=== PATIENT | male | born 1970 | race Caucasian/White ===

== ENCOUNTER 2023-12-28 09:37 | Outpatient (OUT) | payer BC, SELFPAY ==
[2023-12-28 10:25] LABS: Basophils Absolute Auto 0.1 10^3/uL (0.0-0.1); Basophils Percent Auto 1.6 % (0.2-2.0); Eosinophils Absolute Auto 0.1 10^3/uL (0.0-0.7); Eosinophils Percent Auto 1.6 % (0.9-7.0); Hemoglobin 15.8 g/dL (14.0-18.0); Immature Granulocytes Abs Auto 0.02 10^3/uL (0.00-0.03); Immature Granulocytes Pct Auto 0.3 % (0.0-0.5); Lymphocytes Absolute Auto 2.3 10^3/uL (1.2-3.8); Lymphocytes Percent Auto 36.3 % (20.5-60.0); Mean Corpuscular HGB Conc 33.6 g/dL (29.9-35.2); Mean Corpuscular Hemoglobin 33.2 pg (25.9-34.0); Mean Corpuscular Volume 98.7 fL (80.0-94.0); Mean Platelet Volume 9.9 fL (9.5-13.5); Monocytes Absolute Auto 0.7 10^3/uL (0.3-0.8); Monocytes Percent Auto 11.6 % (1.7-12.0); Neutrophils Absolute Auto 3.1 10^3/uL (1.4-6.5); Neutrophils Percent Auto 48.6 % (43.0-75.0); Platelet Count 198 10^3/uL (150-450); Red Blood Count 4.76 10^6/uL (4.70-6.10); Red Cell Distribution Width 12.4 % (11.0-15.0); White Blood Count 6.3 10^3/uL (4.0-11.0)
[2023-12-28 11:18] LABS: Estimated Average Glucose 111 mg/dL; Glycohemoglobin A1C 5.5 % (4.5-6.2)
[2023-12-28 12:01] LABS: Alanine Aminotransferase 45 U/L (16-63); Albumin Globulin Ratio 0.9; Albumin Level 3.7 g/dL (3.4-5.0); Alkaline Phosphatase 75 U/L (46-116); Anion Gap 17.1; Aspartate Amino Transferase 25 U/L (15-37); BUN Creatinine Ratio 15.8; Bilirubin Total 0.5 mg/dL (0.2-1.0); Calcium 9.5 mg/dL (8.5-10.1); Carbon Dioxide 25.4 mmol/L (21.0-32.0); Chloride 102 mmol/L (98-107); Chol HDL Ratio 3.7; Cholesterol 252 mg/dL (<=200); Estimated GFR (African America >60 (>=60); Estimated GFR (Non-African Ame >60 (>=60); Free T3 3.19 pg/mL (2.18-3.98); Globulin 4.3 g/dL; Glucose 89 mg/dL (74-106); HDL Cholesterol 69 mg/dL (40-60); Potassium 4.5 mmol/L (3.5-5.1); Sodium 140 mmol/L (136-145); Thyroid Stimulating Hormone 1.905 uIU/mL (0.358-3.740); Triglycerides 233 mg/dL (<=150); VLDL CHOLESTEROL 46.6 mg/dL
[2023-12-28 12:10] LABS: Prostate Specific Antigen Scrn 0.61 ng/mL (<=4.00)
[2023-12-29 08:08] LABS: Testosterone 653 ng/dL (264-916)
[2023-12-29 14:07] LABS: Insulin 6.8 uIU/mL (2.6-24.9)
== END 2023-12-28 09:38 | disposition home or self-care (01) ==
PROVIDERS: PCP Family Medicine; Visit Provider Family Medicine
DX: Z00.00 Encounter for general adult medical examination without abnormal findings (principal); E78.5 Hyperlipidemia, unspecified; R73.9 Hyperglycemia, unspecified; Z12.5 Encounter for screening for malignant neoplasm of prostate; Z12.12 Encounter for screening for malignant neoplasm of rectum
CPT/HCPCS: 36415; 80053; 80061; 83036; 83525; 84403; 84436; 84443; 84481; 85025; G0103; G0328

== ENCOUNTER 2024-01-04 07:06 | Outpatient (OUT) | payer BC, SELFPAY ==
--- NOTE | 2024-01-04 | CT_ITS ---
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 Dose reduction techniques were achieved by using automated exposure control and/or adjustment of mA and/or kV according to patient size and/or use of iterative reconstruction technique. FINDINGS: LUNGS: No new significant pulmonary nodule or mass PLEURA: No mass, effusion, or pneumothorax. VASCULATURE: No abnormality. FROY: No mass or pathologic adenopathy. MEDIASTINUM: No mass or pathologic adenopathy. CARDIAC: No enlargement, pericardial thickening, or significant calcification. CORONARY ARTERIES: Coronary calcifcations are absent. AORTA: No aneurysm or dissection. CHEST WALL: No mass or axillary adenopathy BONES: No bone lesion or fracture. LIMITED ABDOMEN: No suspicious findings. Limited images of the upper abdomen. OTHER: Negative. CT/CT lung screening low-dose IMPRESSION: LUNG SCREENING: Lung-RADS Category 1 Negative. No nodules and definitely benign nodules. Continue annual screening with LDCT in 12 months. Electronically authenticated by: DUNG MORALES Date: 01/06/2024 07:19
--- OUTSIDE RECORDS SUMMARY | 2024-01-04 07:09 | XMS_ITS | CCD ---
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 Name Role Phone JARED ELMORE Attending Unavailable Anne Bhatia Unavailable ISABELLA Mcdowell, DR BARAJAS Attending Unavailable HAY ., DR BARAJAS Admitting Unavailable HOY ., DR BELL Primary Care Unavailable HAY ., DR BARAJAS Consulting Unavailable HOY ., DR BELL Admitting Unavailable HOY ., DR BELL Attending Unavailable HOY ., DR BELL Consulting Unavailable HOY ., DR BELL Primary Care Unavailable HOY ., DR BELL Admitting Unavailable HOY ., DR BELL Attending Unavailable HOY ., DR BELL Primary Care Unavailable SAMSA ., HORACIO Attending Unavailable SAMSA ., HORACIO Admitting Unavailable ZIEBER, DR JAM Coulter Consulting Unavailable HOY ., DR BELL Primary Care Unavailable SAMSA ., HORACIO Consulting Unavailable HOY ., DR BELL Primary Care Unavailable ALGHOTHANI, MOHAMAD Admitting Unavailable ALGHOTHANI, MOHAMAD Attending Unavailable ALGHOTHANI, MOHAMAD Consulting Unavailable ZIEBER, DR JAM Coulter Consulting Unavailable ALGHOTHANI, MOHAMAD Admitting Unavailable HOY ., DR BELL Primary Care Unavailable RAMÍREZ, JARED Attending Unavailable AMARJITHOSOLEDAD, MOHLESTERD Consulting Unavailable HOY ., DR BELL Admitting Unavailable HOY ., DR BELL Attending Unavailable HOY ., DR BELL Consulting Unavailable HOY ., DR BELL Primary Care Unavailable Allergies Allergy Classification Reported Allergen(s) Allergy Type Date of Onset Reaction(s) Facility (1 source) Sulfonamides (Antibiotic); Translations: [SULFA (SULFONAMIDE ANTIBIOTICS)] Propensity to adverse reactions to drug (disorder) 09-21-19 23 [facility] Repository (2 sources) Sulfamethoxazole / Trimethoprim Drug Allergy hair loss [facility] Other (1 source) bee venom Drug allergy (disorder) 01-07-20 14 [facility] Repository (1 source) Sulfonamides (Antibiotic) Drug allergy (disorder) 09-20-19 17 [facility] Repository Medications Current Medications Medication Drug Class(es) Dates Sig (Normalized) Sig (Original) 0.8 ml adalimumab 50 mg/ml auto-injector (1 source) Tumor Necrosis Factor Luis Antonio Humira Pen 40 MG/0.8ML as directed Subcutaneous Active [id number] actuat albuterol 0.09 mg/actuat metered dose inhaler (1 source) beta2-Adrenergic Agonist Start: 09-07-2023 take 2 puff(s) by inhalation four times daily as needed Albuterol Sulfate HFA 108 (90 Base) MCG/ACT 2 puffs Inhalation 4 times a day prn Sep, Active apremilast 30 mg oral tablet (1 source) take 1 tablet by mouth every twelve hours Otezla 30 MG 1 tablet Orally Twice a day Active benzonatate 200 mg oral capsule (2 sources) Non-narcotic Antitussive Start: 09-07-2023 take 1 capsule by mouth every eight hours Benzonatate 200 MG 1 capsule Orally Three times a day Sep, Active Start: 12-07-2022 take 1 capsule by [facility] every eight hours Benzonatate 200 MG 1 capsule Orally Three times a day Dec, Active fluconazole 150 mg oral tablet (1 source) Azole Antifungal Start: 12-07-2022 Diflucan 150 MG 1 tablet Orally once for 2 days Take 1 tablet today, take the second tablet in 3 days Dec, Active 1 ml ixekizumab 80 mg/ml prefilled syringe (1 source) Interleukin-17A Antagonist inject 1 mL by subcutaneous injection every other week Taltz 80 MG/ML 1 mL Subcutaneous EVERY 2 WEEKS Active losartan potassium 100 mg oral tablet (1 source) Angiotensin 2 Receptor Luis Antonio Losartan Potassium 100 MG Oral for 30 Active nystatin 446195 unt/ml oral suspension (2 sources) Polyene Antifungal Start: 09-07-2023 Nystatin 530210 UNIT/ML 5 ml swish and swallow tid for 7 days Sep, Active Start: 12-07-2022 take 5 mL by mouth t hree times daily Nystatin 925596 UNIT/ML 5 ml Orally 3 times a day for 10 days Swish and swallow Dec, Active predniSONE 20 mg oral tablet (1 source) Start: 09-07-2023 take 1 tablet by mouth every twelve hours predniSONE 20 MG 1 tablet Orally bid for 5 day(s) Sep, Active Completed/Discontinued Medications Medication Drug Class(es) Dates Sig (Normalized) Sig (Original) Ketorolac (2 sources) Nonsteroidal Anti-inflammatory Drug, Cyclooxygenase Inhibitor Start: 12-17-2020 Toradol per 15 mg Dec, 30 mg Triamcinolone (2 sources) Corticosteroid Start: 12-17-2020 KENALOG - 10 mg Dec, 40 mg Problems Active Problems Problem Classification Problem Date Documented Da te Episodic/Chronic Congestive heart failure; nonhypertensive (1 source) Unspecified diastolic (congestive) heart failure; Translations: [UNSPECIFIED DIASTOLIC HEART FAILURE] Onset: 08-22-2022 Chronic Essential hypertension (1 source) Essential (primary) hypertension; Translations: [ESSENTIAL PRIMARY HYPERTENSION] Onset: 09-05-2022 Chronic Hypertension with complications and secondary hypertension (1 source) Hypertensive heart disease with heart failure; Translations: [HTN HEART DISEASE W/HEART FAIL] Onset: 08-22-2022 Chronic Inflammation; infection of eye (except that caused by tuberculosis or sexually transmitteddisease) (1 source) Acute toxic conjunctivitis, right eye; Translations: [ACUTE TOXIC CONJUNCTIVITIS RT EYE] Onset: 01-30-2023 Episodic Mycoses (2 sources) Candidal stomatitis Episodic Nutritional deficiencies (1 source) Vitamin D deficiency, unspecified; Translations: [VITAMIN D DEFICIENCY UNSPECIFIED] Onset: 08-22-2022 Chronic Other eye disorders (3 sources) Ocular pain, right eye; Translations: [OCULAR PAIN RIGHT EYE] Onset: 01-30-2023 Episodic Other lower respiratory disease (4 sources) Shortness of breath; Translations: [SHORTNESS OF BREATH] Onset: 01-18-2023 Episodic Other upper respiratory infections (1 source) Acute pharyngitis, unspecified Episodic Substance-related disorders (2 sources) Nicotine dependence, cigarettes, uncomplicated; Translations: [Nicotine dependence, cigarettes, with unspecified nicotine-induced disorders] Onset: 01-20-2023 Chronic Past or Other Problems Problem Classification Problem Date Documented Da te Episodic/Chronic Deficiency and other anemia (1 source) Anemia, unspecified; Translations: [ANEMIA UNSPECIFIED] Onset: 08-22-2022 Episodic Diabetes mellitus without complication (1 source) Other abnormal glucose; Translations: [OTHER ABNORMAL GLUCOSE] Onset: 08-22-2022 Episodic Malaise and fatigue (4 sources) Other fatigue; Translations: [OTHER FATIGUE] Onset: 08-17-2022 Episodic Nonspecific chest pain (10 sources) Other chest pain; Translations: [Chest pain, unspecified] Onset: 09-17-2022 Episodic Other lower respiratory disease (5 sources) Dyspnea, unspecified; Translations: [DYSPNEA UNSPECIFIED] Onset: 08-22-2022 Episodic Other screening for suspected conditions (not mental disorders or infectious disease) (2 sources) Encounter for screening for malignant neoplasm of prostate; Translations: [Encounter for screening for malignant neoplasm of rectum] Onset: 08-22-2022 Episodic Unclassified (1 source) Cough, unspecified type R05.9 Unclassified (1 source) Acute cough R05.1 Viral infection (1 source) COVID-19 Results Test Name Value Interpretation Reference Range Facility COVID + FLU Quick Testingon 09-07-2023 SARS-CoV-2 (COVID-19) RNA MARCI+probe Ql (Unsp spec) Positive [facility] Other COVID + FLU Quick Testing Negative [facility] Other CT LUNG CANCER SCREENINGon 01-18-2023 CT LUNG CANCER SCREENING EXAMINATION: CT LUNG CANCER SCREENING HISTORY: Nicotine dependence COMPARISON: No relevant comparison available. TECHNIQUE: Axial, Coronal, and Sagittal images were created without the administration of IV contrast material. Dose reduction techniques were achieved by using automated exposure control and/or adjustment of mA and/or kV according to patient size and/or use of iterative reconstruction technique. FINDINGS: LUNGS: A few tiny granulomas. No suspicious nodules, infiltrates, or significant chronic interstitial changes. PLEURA: No mass, effusion, or pneumothorax. VASCULATURE: No abnormality. FROY: No mass or pathologic adenopathy. MEDIASTINUM: No mass or pathologic adenopathy. CARDIAC: No enlargement, pericardial thickening, or significant calcification. AORTA: No aneurysm or dissection. CHEST WALL: No mass or axillary adenopathy BONES: No bone lesion or fracture. LIMITED ABDOMEN: No suspicious findings. Limited images of the upper abdomen. OTHER: Negative. IMPRESSION: 1. Lung-RADS Category 1 Negative. No nodules and definitely benign nodules. Continue annual screening with LDCT in 12 months. Electronically authenticated by: JAM ENGEL Date: 2023-01-18 09:12 Normal [facility] HEMOGLOBINon 01-18-2023 Hemoglobin (Bld) [Mass/Vol] 15.2 g/dL Normal 14.0-18.0 [facility] Comment on above: Performed By: #### H GB ####[facility] [address] [place], [place] [address]Om. Diane Webber QUICK STREPon 12-07-2022 S. pyogenes Ag Ql (Unsp spec) Negative [facility] Other nm STRESS/REST MULTIon 10-02 NM STRESS/REST MULTI Patient: RHETT VENEGAS Exam Date: 10/02/2022 : 1970 Gender:M Ordering : JARED ELMORE Admission #: [id number] Family : Order #: [id number] CLICK HERE TO VIEW EXAM RADIOLOGY REPORT PROCEDURE: RADIONUCLIDE IMAGING STRESS/REST MULTI COMPARISON: None. INDICATIONS: Chest pain TECHNIQUE: Exam Description: Stress/Rest two day protocol gated SPECT Rest Imagin.2 mCi Tc-99m Cardiolite IV on 10/02/2022 Stress Imaging 25.8 mCi Tc-99m Cardiolite IV on 10/03/2022 Exercise Protocol: 0.4 mg Lexiscan given IV Heart Rate (bpm): Rest: 100 Max: 107 PMHR: 63 Blood Pressure: Rest: 168/120 Max: 176/110 Symptoms: Rest and peak stress ECG findings were normal and the exercise portion of the study was normal per attending physician Dr. Tomas . For more details please see separate cardiac stress test report. FINDINGS: QUALITY OF STUDY: Excellent. PERFUSION DEFECT: LOCATION: Basal inferior. Mid-inferior. Apical inferior. [place]. SIZE: Medium (3-4 segments). SEVERITY: Moderate. TYPE: Persistent. WALL MOTION: Normal. LV SIZE: Enlarged; EDV 154 mL. TID / TCD: 1.0 LVEF: Normal. Calculated EF 56%. SUMMARY: Myocardial perfusion imaging study has ABNORMAL findings. CONCLUSION: 1. No acute or reversible ischemia. 2. Inferior wall fixed perfusion defect versus diaphragm attenuation artifact. 3. Mild left ventriculomegaly, 154 mL. 4. Ejection fraction is lower limits of normal, 56%. 5. Normal wall motion. Dictated by: Jam Engel M.D. on 10/03/2022 at 12:01 Approved by: Jam Engel M.D. on 10/03/2022 at 12:05 Normal [facility] Office Visiton 09-21-2022 Follow-up visit [id number] Rhett Venegas 1970 M Date Provider Department Center 09/21/2022 3848-JARED ELMORE [facility] Family History Problem Relation Age of Onset Coronary artery disease Mother Other Mother Family Status - Relation Status Age at Mother Level of Service:83437 DE OFFICE/OUTPATIENT NEW MODERATE MDM 45-59 MINUTES Reason for Visit and Comments: abnormal stress test [Other] Normal [facility] ECHOCARDIO M/2D COMPLETEon 1 ECHOCARDIO M/2D COMPLETE Patient: MIRIAMALISSA RHETT EricaJeremias Exam Date: 08/30/2022 : 1970 Gender:M Ordering : DR ARABELLA HILL . Admission #: [id number] Family : Order #: [id number] CLICK HERE TO VIEW EXAM ECHOCARDIOGRAM REPORT PROCEDURE: CARDIO PULMONARY ECHOCARDIO M/2D COMP INDICATIONS: Dyspnea, hypertension, smoker COMPARISON: None. DESCRIPTION: COMPLETE ECHOCARDIOGRAM Real-time transthoracic echocardiography with 2D, M-mode, spectral and color flow Doppler performed. QUALITY: Technical quality was adequate. 72 270# BP 186/98 LEFT VENTRICLE: Normal chamber size. Borderline left ventricular hypertrophy. LV EF: Normal left ventricular ejection fraction, (>55%). DIASTOLIC: Normal diastolic function. ATRIAL SEPTUM: Visually appears intact. LEFT ATRIUM: Normal chamber size. RIGHT ATRIUM: Normal chamber size. RIGHT VENTRICLE: Normal chamber size. Systolic function appears reduced. TRICUSPID VALVE: Normal mobility and thickness. No stenosis with no regurgitation. Unable to assess right-sided pressures due to lack of measurable tricuspid regurgitation. MITRAL VALVE: Normal mobility and thickness. No evidence of mitral valve stenosis. There is no mitral annular calcification. Trivial mitral regurgitation. AORTIC VALVE: Normal trileaflet appearance. No visible sclerosis. Normal leaflet mobility. No evidence of aortic valve stenosis. No aortic regurgitation. AORTIC ROOT: Normal diameter and appearance. PULMONIC VALVE: Not well visualized. No stenosis. No regurgitation. PERICARDIUM: Anterior free space; trivial effusion versus fat pad. IVC: Collapses with inspirations. IVC is mildly dilated (2.2 cm) CONCLUSION: Global left ventricular systolic function is normal; visually estimated ejection fraction is 55 to 60%. Borderline left ventricular hypertrophy. Right ventricle is normal in size. Right ventricular systolic function appears reduced. No significant valvular abnormalities. Anterior free space; trivial effusion versus fat pad. Adult Echocardiography Procedure Report Left Ventricle LVEDD (3.7 - 5.6 cm): 5.03 cm LVESD (2.2 - 4.0 cm): 3.15 cm LVIVS thickness (0.6 - 1.2 cm): 1.04 cm LVPW thickness (0.5 - 1.0 cm): 1.11 cm e': 0.08 m/s E - e': 11.64 LVOT Max Gradient: 4.02 mm[Hg], 3.60 mm[Hg], 4.02 mm[Hg], 3.60 mm[Hg] Peak Velocity (LVOT): 1.00 m/s, 0.95 m/s, 1.00 m/s, 0.95 m/s Mean Velocity (LVOT): 0.71 m/s, 0.67 m/s, 0.71 m/s, 0.67 m/s LVOT Diameter 1.86 cm Left Ventricular Ejection Fraction: 66.96 %, 66.96 % Left Atrium LA Volume Index (2D A2C): 49.96 ml, 49.96 ml Left Atrium Systolic Dimension: 3.71 cm Mitral Valve MV E to A Ratio: 1.19 Mitral Valve A-Wave Peak Velocity: 0.75 m/s Mitral Valve E-Wave Peak Velocity: 0.90 m/s Right Ventricle Aorta AO Root Diam: 3.11 cm Aortic Valve AoV Area (Peak Hollis): 2.24 cm2, 2.30 cm2 AoV Area (VTI): 2.31 cm2, 2.29 cm2 Peak Velocity(Antegrade Flow): 1.19 m/s Peak Gradient(Antegrade Flow): 5.65 mm[Hg] Mean Velocity(Antegrade Flow): 0.73 m/s Mean Gradient(Antegrade Flow): 2.55 mm[Hg] Velocity Time Integral: 20.75 cm Tricuspid Valve Peak Velocity: 0.33 m/s Pulmonic Valve Peak Velocity: 0.71 m/s, 0.67 m/s Peak Gradient: 2.02 mm[Hg], 1.82 mm[Hg] Right Atrium Right Atrium Systolic Pressure: 32.51 ml, 32.51 ml Dictated by: Cindy Tomas M.D. on 09/04/2022 at 10:29 Approved by: Cindy Tomas M.D. on 09/04/2022 at 10:31 Normal [facility] INSULINon 08-18-2022 Insulin 10.2 uIU/mL Normal 2.6-24.9 [facility] Comment on above: Performed By: #### I NSULIN ####[facility] [address] [place] [address]Dr. Diane Webber BNPon 08-17-2022 Natriuretic peptide B (Bld) [Mass/Vol] 57.0 pg/mL Normal <=900.0 [facility] Comment on above: Performed By: #### B PICKING TECH, T7, TSH, CMP, LIPID #### [facility] [address] [address] [address] Diane Webber CBC AUTO DIFFon 08-17-2022 BASO # 0.1 103/ul Normal 0.0-0.1 [facility] Comment on above: Performed By: #### C BC #### [facility] [address] [address] [address] Diane Webber Basophils/100 WBC (Bld) 1.0 % Normal 0.2-2.0 [facility] Comment on above: Performed By: #### C BC #### [facility] [address] [address] [address] Diane Webber EO # 0.1 103/ul Normal 0.0-0.7 [facility] Comment on above: Performed By: #### C BC #### [facility] [address] [address] [address] Diane Webber Eosinophils/100 WBC (Bld) 1.7 % Normal 0.9-7.0 [facility] Comment on above: Performed By: #### C BC #### [facility] [address] [place] [address] Dr. Diane Webber Erythrocyte distribution width (RBC) [Ratio] 12.4 % Normal 11.0-15.0 [facility] Comment on above: Performed By: #### C BC #### [facility] [address] [place] [address] Dr. Diane Webber Hematocrit (Bld) [Volume fraction] 45.3 % Normal 42.0-54.0 [facility] Comment on above: Performed By: #### C BC #### [facility] [address] [place] [address] Dr. Diane Webber Hemoglobin (Bld) [Mass/Vol] 15.5 g/dL Normal 14.0-18.0 [facility] Comment on above: Performed By: #### C BC #### [facility] [address] [place] [address] Dr. Diane Webber IG # 0.03 10e3/ul Normal 0.00-0.03 [facility] Comment on above: Performed By: #### C BC #### [facility] [address] [place] [address] Dr. Diane Webber IG % 0.4 % Normal 0.0-0.5 [facility] Comment on above: Performed By: #### C BC #### [facility] [address] [place] [address] Dr. Diane Webber LYMPH # 2.5 103/ul Normal 1.2-3.8 [facility] Comment on above: Performed By: #### C BC #### [facility] [address] [place] [address] Dr. Diane Webber Lymphocytes/100 WBC (Bld) 36.0 % Normal 20.5-60.0 [facility] Comment on above: Performed By: #### C BC #### [facility] [address] [place] [address] Dr. Diane Webber MANUAL DIFF REQ NO Normal [facility] Comment on above: Performed By: #### C BC #### [facility] [address] [place] [address] Dr. Diane Webber MCH (RBC) [Entitic mass] 33.3 pg Normal 25.9-34.0 [facility] Comment on above: Performed By: #### C BC #### [facility] [address] [place] [address] Dr. Diane Webber MCHC (RBC) [Mass/Vol] 34.2 g/dL Normal 29.9-35.2 [facility] Comment on above: Performed By: #### C BC #### [facility] [address] [place] [address] Dr. Diane Webber MCV (RBC) [Entitic vol] 97.2 fL Critically high 80.0-94.0 [facility] Comment on above: Performed By: #### C BC #### [facility] [address] [place] [address] Dr. Diane Webber MONO # 0.8 103/ul Normal 0.3-0.8 [facility] Comment on above: Performed By: #### C BC #### [facility] [address] [place] [address] Dr. Diane Webber Monocytes/100 WBC (Bld) 10.9 % Normal 1.7-12.0 [facility] Comment on above: Performed By: #### C BC #### [facility] [address] [place] [address] Dr. Diane Webber NEUT # 3.5 103/ul Normal 1.4-6.5 [facility] Comment on above: Performed By: #### C BC #### [facility] [address] [place] [address] Dr. Diane Webber Neutrophils/100 WBC (Bld) 50.0 % Normal 43.0-75.0 [facility] Comment on above: Performed By: #### C BC #### [facility] [address] [place] [address] Dr. Diane Webber Platelet mean volume (Bld) [Entitic vol] 9.5 fL Normal 9.5-13.5 [facility] Comment on above: Performed By: #### C BC #### [facility] [address] [place], [place] [id number] Dr. Diane Webber PLT 220 103/ul Normal 150-450 [facility] Comment on above: Performed By: #### C BC #### [facility] [address] [address] [address] Diane Webber RBC 4.66 106/ul Critically low 4.70-6.10 [facility] Comment on above: Performed By: #### C BC #### [facility] [address] [address] [address] Diane Webber WBC 7.1 103/ul Normal 4.0-11.0 [facility] Comment on above: Performed By: #### C BC #### [facility] [address] [address] [address] Diane Webber FREE THYROXINE INDEX T7on FTI 2.10 Normal 1.30-4.50 [facility] Comment on above: Performed By: #### B PICKING TECH, T7, TSH, CMP, LIPID #### [facility] [address] [place] [address] Dr. Diane Webber T3U 35.0 % Normal 33.0-40.0 [facility] Comment on above: Performed By: #### B PICKING TECH, T7, TSH, CMP, LIPID #### [facility] [address] [place] [address] Dr. Diane Webber T4 [Mass/Vol] 6.00 ug/dL Normal 4.50-12.10 [facility] Comment on above: Performed By: #### B PICKING TECH, T7, TSH, CMP, LIPID #### [facility] [address] [place] [address] Dr. Diane Webber GLYCOHEMOGLOBIN A1Con 2021 ADA RECOMMENDATION SEE BELOW Normal [facility] Comment on above: Result Comment: ADA RECOMMENDED LIMIT 4.0 - 6.0 ADA THERAPEUTIC TARGET < 7.0 ACTION SUGGESTED > 7.0 Performed By: #### A 1C ####[facility] [address] [place] [address]Dr. Diane Webber Glucose [Mass/Vol] 114 mg/dL Normal [facility] Comment on above: Performed By: #### A 1C ####[facility] [address] [place], [place] [address]VxJeremias Webber HbA1c (Bld) [Mass fraction] 5.6 % Normal 4.5-6.2 [facility] Comment on above: Performed By: #### A 1C ####[facility] [address] [place], [place] [address]ZhJeremias Webber IRONon 08-17-2022 Iron [Mass/Vol] 151.0 ug/dL Normal 65.0-175.0 [facility] Comment on above: Performed By: #### P SASC, IRON, VITAD ####[facility] [address] [place], [place] [address]ZzJeremias Webber LIPID PROFILEon 08-17-2022 CHOL-HDL RATIO NORM SEE BELOW Normal [facility] Comment on above: Result Comment: 3.3 - 4.4 LOW RISK 4.4 - 7.1 AVERAGE RISK 7.1 - 11.0 MODERATE RISK >11.0 HIGH RISK Performed By: #### B PICKING TECH, T7, TSH, CMP, LIPID #### [facility] [address] [address] [address] Diane Webber Cholesterol [Mass/Vol] 221 mg/dL Critically high <=200 [facility] Comment on above: Performed By: #### B PICKING TECH, T7, TSH, CMP, LIPID #### [facility] [address] [id number] [address] Diane Webber Cholesterol in HDL [Mass/Vol] 68 mg/dL Critically high 40-60 [facility] Comment on above: Performed By: #### B PICKING TECH, T7, TSH, CMP, LIPID #### [facility] [address] [place], [place] [address] Dr. Diane Webber Cholesterol in LDL [Mass/Vol] 118.6 mg/dL Normal [facility] Comment on above: Performed By: #### B PICKING TECH, T7, TSH, CMP, LIPID #### [facility] [address] [place], [place] [address] Dr. Diane Webber Cholesterol.total/Ch olesterol in HDL [Mass ratio] 3.3 {ratio} Normal [facility] Comment on above: Performed By: #### B PICKING TECH, T7, TSH, CMP, LIPID #### [facility] [address] [place] [address] Dr. Diane Webber HDL NORMAL > or = 60 mg/dl - LOW CARDIOVASCULAR RISK <40 mg/dl - HIGH CARDIOVASCULAR RISK Normal [facility] Comment on above: Performed By: #### B PICKING TECH, T7, TSH, CMP, LIPID #### [facility] [address] [address] [address] Diane Webber LDL CALC NORMAL SEE BELOW Normal [facility] Comment on above: Result Comment: <100 mg/dl OPTIMAL 100 - 129 mg/dl NEAR OR ABOVE OPTIMAL 130 - 159 mg/dl BORDERLINE HIGH 160 - 189 mg/dl HIGH >190 mg/dl VERY HIGH Performed By: #### B PICKING TECH, T7, TSH, CMP, LIPID #### [facility] [address] [place] [address] Dr. Diane Webber Triglyceride [Mass/Vol] 172 mg/dL Critically high <=150 [facility] Comment on above: Performed By: #### B PICKING TECH, T7, TSH, CMP, LIPID #### [facility] [address] [place] [address] Dr. Diane Webber VLDL CALC 34.4 mg/dL Normal [facility] Comment on above: Performed By: #### B PICKING TECH, T7, TSH, CMP, LIPID #### [facility] [address] [place] [address] Dr. Diane Webber PROF 14(COMP METB)on 022 Albumin [Mass/Vol] 3.7 g/dL Normal 3.4-5.0 [facility] Comment on above: Performed By: #### B PICKING TECH, T7, TSH, CMP, LIPID #### [facility] [address] [place] [address] Dr. Dinae Webber Albumin/Globulin [Mass ratio] 0.9 {ratio} Normal [facility] Comment on above: Performed By: #### B PICKING TECH, T7, TSH, CMP, LIPID #### [facility] [address] [place] [address] Dr. Diane Webber ALP [Catalytic activity/Vol] 56 U/L Normal 46-116 [facility] Comment on above: Performed By: #### B PICKING TECH, T7, TSH, CMP, LIPID #### [facility] [address] [place] [address] Dr. Diane Webber ALT [Catalytic activity/Vol] 53 U/L Normal 16-63 [facility] Comment on above: Performed By: #### B PICKING TECH, T7, TSH, CMP, LIPID #### [facility] [address] [place] [address] Dr. Diane Webber Anion gap [Moles/Vol] 13.4 mmol/L Normal [facility] Comment on above: Performed By: #### B PICKING TECH, T7, TSH, CMP, LIPID #### [facility] [address] [place] [address] Dr. Diane Webber AST [Catalytic activity/Vol] 26 U/L Normal 15-37 [facility] Comment on above: Performed By: #### B PICKING TECH, T7, TSH, CMP, LIPID #### [facility] [address] [place] [address] Dr. Diane Webber Bilirubin [Mass/Vol] 0.5 mg/dL Normal 0.2-1.0 [facility] Comment on above: Performed By: #### B PICKING TECH, T7, TSH, CMP, LIPID #### [facility] [address] [place] [address] Dr. Diane Webber Calcium [Mass/Vol] 9.1 mg/dL Normal 8.5-10.1 [facility] Comment on above: Performed By: #### B PICKING TECH, T7, TSH, CMP, LIPID #### [facility] [address] [place] [address] Dr. Diane Webber Chloride [Moles/Vol] 102 mmol/L Normal 98-107 [facility] Comment on above: Performed By: #### B PICKING TECH, T7, TSH, CMP, LIPID #### [facility] [address] [place] [address] Dr. Diane Webber CO2 [Moles/Vol] 26.9 mmol/L Normal 21.0-32.0 [facility] Comment on above: Performed By: #### B PICKING TECH, T7, TSH, CMP, LIPID #### [facility] [address] [place] [address] Dr. Diane Webber Creatinine [Mass/Vol] 0.88 mg/dL Normal 0.70-1.30 [facility] Comment on above: Performed By: #### B PICKING TECH, T7, TSH, CMP, LIPID #### [facility] [address] [place] [address] Dr. Diane Webber EGFR-AF [place] >60 Normal >=60 [facility] Comment on above: Performed By: #### B PICKING TECH, T7, TSH, CMP, LIPID #### [facility] [address] [place] [address] Dr. Diane Webber EGFR-NON AF [place] >60 Normal >=60 [facility] Comment on above: Performed By: #### B PICKING TECH, T7, TSH, CMP, LIPID #### [facility] [address] [place] [address] Dr. Diane Webber Globulin (S) [Mass/Vol] 4.2 g/dL Normal [facility] Comment on above: Performed By: #### B PICKING TECH, T7, TSH, CMP, LIPID #### [facility] [address] [place] [address] Dr. Diane Webber Glucose [Mass/Vol] 103 mg/dL Normal 74-106 [facility] Comment on above: Performed By: #### B PICKING TECH, T7, TSH, CMP, LIPID #### [facility] [address] [place] [address] Dr. Diane Webber Potassium [Moles/Vol] 4.3 mmol/L Normal 3.5-5.1 [facility] Comment on above: Performed By: #### B PICKING TECH, T7, TSH, CMP, LIPID #### [facility] [address] [place] [address] Dr. Diane Webber Protein [Mass/Vol] 7.9 g/dL Normal 6.4-8.2 [facility] Comment on above: Performed By: #### B PICKING TECH, T7, TSH, CMP, LIPID #### [facility] [address] [address] [address] Diane Webber Sodium [Moles/Vol] 138 mmol/L Normal 136-145 [facility] Comment on above: Performed By: #### B PICKING TECH, T7, TSH, CMP, LIPID #### [facility] [address] [address] [address] Diane Webber Urea nitrogen [Mass/Vol] 8.0 mg/dL Normal 7.0-18.0 [facility] Comment on above: Performed By: #### B PICKING TECH, T7, TSH, CMP, LIPID #### [facility] [address] [address] [address] Diane Webber Urea nitrogen/Creatinine [Mass ratio] 9.1 mg/mg Normal [facility] Comment on above: Performed By: #### B PICKING TECH, T7, TSH, CMP, LIPID #### [facility] [address] [address] [address] Diane Webber TSHon 08-17-2022 TSH 1.506 uIU/mL Normal 0.358-3.740 [facility] Comment on above: Performed By: #### B PICKING TECH, T7, TSH, CMP, LIPID #### [facility] [address] [address] [address] Diane Webber VITAMIN D 25 OHon 08-17-2022 VIT D 25-OH 23.0 ng/mL Normal [facility] Comment on above: Performed By: #### P SASC, IRON, VITAD ####[facility] [id number] [id number]. Diane Webber VIT D RANGES SEE BELOW Normal [facility] Comment on above: Result Comment: <20 ng/mL Vit D deficient 20 - <30 ng/mL Vit D insufficient 30 - 100 ng/mL Vit D sufficient >100 ng/mL Potential Toxicity Performed By: #### P SASC, IRON, VITAD ####[facility] [id number] [id number]. Diane Webber Vital Signs Date Time Vital Sign Value Performing Clinician Facility 09-07-2023 14:15-0500 Body height 180.34 cm Anne Fuchs [facility] Other 09-07-2023 14:15-0500 Body mass index (BMI) [Ratio] 37.74 kg/m2 Anne Jannette Other [facility] Other 09-07-2023 14:15-0500 Body temperature 99.1 [degF] Anne Jannette Other [facility] Other 09-07-2023 14:15-0500 Body weight 122.74 kg Anne Jannette Other [facility] Other 09-07-2023 14:15-0500 Respiratory rate 20 /min Anne Whatleymond Other [facility] Other 09-07-2023 14:15-0500 SaO2% (BldA) [Mass fraction] 98 % Anne Whatleymond Other [facility] Other 12-07-2022 13:50-0400 Body height 180.34 cm Anne Jannette Other [facility] Other 12-07-2022 13:50-0400 Body mass index (BMI) [Ratio] 35.92 kg/m2 Anne Jannette Other [facility] Other 12-07-2022 13:50-0400 Body temperature 97.9 [degF] Anne Jannette Other [facility] Other 12-07-2022 13:50-0400 Body weight 116.85 kg Anne Jannette Other [facility] Other 12-07-2022 13:50-0400 Diastolic blood pressure 117 mm[Hg] Anne Jannette Other [facility] Other 12-07-2022 13:50-0400 Respiratory rate 18 /min Anne Jannette Other [facility] Other 12-07-2022 13:50-0400 SaO2% (BldA) [Mass fraction] 97 % Anne Jannette Other [facility] Other 12-07-2022 13:50-0400 Systolic blood pressure 152 mm[Hg] Anne Jannette Other [facility] Other Encounters Encounter Date Encounter Type Care Provider Facility Start: 09-07-2023 End: 09-07-2023 ambulatory Anne Jannette Other [facility] Other Start: 09-07-2023 Office outpatient visit 15 minutes Anne Jannette [facility] Start: 01-30-2023 End: 01-30-[address] JENN MASON . Facility:[facility] Start: 01-18-2023 End: 01-19-2023 ambulatory HORACIO WILSON . Facility:[facility] Start: 12-07-2022 End: 12-07-2022 ambulatory Anne Whatleymond Other [facility] Other Start: 12-07-2022 Office outpatient visit 15 minutes Anne Jannette [facility] Start: 10-03-2022 End: 10-04-[address] ARABELLA HILL . Facility:[facility] Start: 10-02-2022 End: 10-03-[address] JAM ENGEL Facility:[facility] Start: 09-21-2022 End: 09-21-[address] [facility] Start: 09-17-2022 End: 09-18-[address] ARABELLA HILL . Facility:[facility] Start: 08-30-2022 End: 08-31-[address] ARABELLA HILL . Facility:[facility] Start: 08-17-2022 End: 08-18-[address] ARABELLA HILL . Facility:[facility] Procedures Date Procedure Procedure Detail Performing Clinician Start: 08-17-[address] JENN HANSEN . Comment on above: Performed By: #### P SASC, IRON, VITAD ####[facility] [id number] [place], [place] [address]VjJeremias Diane Webber Payers Date Payer Category Payer Unknown [id number] 2.16.84 [id number] 1971 Unknown [id number] 2.16.84 [id number] 1971 Unknown [id number] 2.16.84 [id number] 1971 Unknown [id number] 2.16.84 [id number] 1971 Unknown [id number] 2.16.84 [id number] 1971 Unknown [id number] 2.16.84 [id number] 1971 Unknown [id number] 2.16.84 [id number] 1959 Unknown [id number] 1959 Unknown [id number] [facility] [id number] Social History Date Type Detail Facility Unknown if ever smoked [facility] Other Sex Assigned At Sex Assigned At Bir th [facility] Other Evaluation note 09-07-2023 Note Date & Type Note Facility 09-07-2023 Evaluation note Encounter Date Diagnosis Assessment Notes Sep, Acute cough (ICD-10 - R05.1) Sep, COVID-19 (ICD-10 - U07.1) Drink Plenty fluids, get plenty of rest. The prednisone as prescribed until gone for your cough and inflammation. Use the albuterol inhaler as prescribed as needed for cough or shortness of breath. Take the benzonatate capsules as prescribed as needed for cough. Take the nystatin mouthwash as prescribed for the thrush on your tongue. Take Tylenol or Motrin as needed for aches pains or fevers. You must quarantine for 5 days after the onset of COVID. Follow-up with your family physician if no improvement in 2 to 3 days Sep, Thrush, oral (ICD-10 - B37.0) [facility] Other Evaluation note 12-07-2022 Note Date & Type Note Facility 12-07-2022 Evaluation note Encounter Date Diagnosis Assessment Notes Dec, Sore throat (ICD-10 - J02.9) Dec, Thrush, oral (ICD-10 - B37.0) Thrush home care material was printed, Thrush: adult material was printed Drink plenty fluids, get plenty of rest. Continue home medications as prescribed. Take the nystatin as prescribed until gone. Take the Diflucan as prescribed until gone. Use the Tessalon Perles as prescribed as needed for cough. Follow-up with your family physician if no improvement by Saturday. Go to the ER for worsening symptoms or concerns Dec, Cough, unspecified type (ICD-10 - R05.9) [facility] Other Clinical Note 10-03-2022 Note Date & Type Note Facility 10-03-2022 Note CARDIAC STRESS TEST Requesting Physician: Procedure Date:10/03/2022 INDICATION: Chest pain. METHODS: After risks, benefits and alternatives were explained, the patient was brought to the Stress Lab in a resting and fasting state. He was connected to the appropriate hemodynamic and electrocardiographic monitoring. Lexiscan 0.4 mg was infused intravenously. He was monitored for the standard duration and discharged in a stable state. There were no complications. FINDINGS: HEMODYNAMICS: Resting heart rate was 91 beats per minute, increasing to a maximum of 107 beats per minute. Resting blood pressure was 168/120, decreasing to a minimum of 162/110. The patient had no symptoms during the test. ELECTROCARDIOGRAPHY: Rest EKG: Normal sinus rhythm. Normal EKG. During infusion and recovery: No significant ST-T wave changes noted. No significant arrhythmia seen. FINAL IMPRESSIONS: 1. No ischemic EKG changes seen on Lexiscan pharmacological stress test. 2. Nuclear images are to be read, interpreted and relayed in a separate dictation. [facility] Progress note 09-21-2022 Note Date & Type Note Facility 09-21-2022 Note Cardiology Clinic No te Chief Complaint: new patient visit for abnormal stress test HPI: Rhett Venegas is a 52 y.o. male with a past medical history including HTN, tobacco abuse, and alcohol abuse. Patient was referred to cardiology clinic due to abnormal stress test. Stress test was initially performed due to dyspnea on exertion. Patient states that he has been experiencing dyspnea on exertion for 6 months or longer. He states that it is stable, and denies any significant progression. He denies any chest pain. He denies any additional cardiac complaints or concerns. He endorses chronic lower extremity swelling, but denies any orthopnea or paroxysmal nocturnal dyspnea. He denies any dizziness or lightheadedness. No near syncope or syncope. Patient denies any previous history of CVA, PVD, DM, HTN, Depressed LVEF, and CAD. Patient has a long history of tobacco smoking. He is down to 3/4 packs/day. He drinks anywhere between 6-10 beers per day. He states that his mother had stents put in, but he does not recall what age. No additional family cardiac history. Treadmill stress test was ordered by PCP. Patient has borderline inferior changes. No nuclear imaging was performed. Cardiology ROS: GENERAL: Denies fever, chills, night sweats, weight loss. HEENT: Denies changes in vision, photophobia, changes in hearing, epistaxis, oral bleeding. CARDIOVASCULAR: Endorses dyspnea on exertion. Denies chest pain, orthopnea/PND, palpitations, lightheadedness/dizziness. RESPIRATORY: Endorses SOB, coughing. Denies wheezing GI: Denies abdominal pain, nausea/vomiting, heartburn, melena/hematochezia. RENAL: Denies dysuria, hematuria, flank pain. MSK: Denies muscle weakness/pain, arthralgias/joint pain. NEUROLOGIC: Denies LOC, weakness, numbness, headaches. SKIN: Denies abnormal rashes or bleeding. PSYCH: Denies significant anxiety, depression, sleep disturbances. Past Medical History He has a past medical history of Hypertension, Psoriasis, and Psoriatic arthritis ([facility]). Surgical History He has a past surgical history that includes Hernia repair. Social History He reports that he has been smoking cigarettes. He has been smoking an average of .75 packs per day. He has quit using smokeless tobacco. He reports current alcohol use of about 70.0 standard drinks per week. No history on file for drug use. Family History Family History Problem Relation Name Age of Onset Coronary artery disease Mother Other (coronary stent) Mother Medications Current Outpatient Medications on File Prior to Visit Medication Sig Dispense Refill aspirin 325 mg tablet Take 325 mg by mouth in the morning. Humira,CF, Pen 40 mg/0.4 mL pen injector kit pen-injector irbesartan (Avapro) 300 mg tablet Take 300 mg by mouth at bedtime. metoprolol tartrate (Lopressor) 50 mg tablet Take 50 mg by mouth in the morning and at bedtime. No current facility-administered medications on file prior to visit. Allergies Sulfa (sulfonamide antibiotics) Physical Exam VITAL SIGNS: BP (!) 149/102 (BP Location: Left arm, Patient Position: Sitting) Pulse 78 Ht 1.803 m (5' 11 ) Wt 120 kg (264 lb) SpO2 95% BMI 36.82 kg/m??? Constitutional: Well developed, Well nourished, No acute distress, Non-toxic appearance. HENT: Normocephalic, Atraumatic, Bilateral external ears have normal appearance, Bilateral TMs clear, Oropharynx moist, No oral or pharyngeal exudates, Nose appears normal, nares are patent. Eyes: PERRLA, EOMI, Conjunctiva normal, No discharge. Neck: Normal range of motion, No tenderness, Supple, No stridor. No cervical lymphadenopathy noted. Cardiovascular: Normal heart rate, Normal rhythm, No murmurs, No rubs, No gallops. Thorax & Lungs: Diffuse end expiratory wheezing Abdomen: Bowel sounds normal, Soft, Nontender, No masses, No pulsatile masses. Skin: Warm, Dry, No erythema, No rash. Back: No tenderness, No CVA tenderness. Extremities: Intact distal pulses, No edema, No tenderness, No cyanosis, No clubbing. Musculoskeletal: Good range of motion in all major joints with 5/5 muscle strength in all muscle groups, No tenderness to palpation or major deformities noted. Neurologic: Alert & oriented x 3, Normal motor function in all major muscle groups, Normal sensory function to all major dermatomes, No focal deficits noted. Psychiatric: Affect normal, Judgment normal, Mood normal. Echo results: LVEF is preserved No significant valvular abnormality RV function appears to be reduced Impression: -Dyspnea, dyspnea on exertion: Likely multifactorial. Patient has long history of smoking, and his lungs are audibly wheezy on exam. However, given risk factors and family history, prudent to rule out ischemia -HTN: blood pressure elevated in clinic today. Patient states that he has not taken his medications today. -Tobacco abuse -Alcohol abuse Plan: -Will order nuclear myocardial p (more content not included)... [facility] Progress note 09-21-2022 Note Date & Type Note Facility 09-21-2022 Note New patient here to establish care. Ref from Dr. Hill for abnormal stress test. Patient states it was ordered for SOB and fatigue. Denies chest pain. Thinks he has SE but has never been tested. Denies PND. Had echo and labs also last month. He was not started on anything for cholesterol. Mother has several coronary stents he says. Smokes 3/4 PPD and drinks 6-10 beers daily. Review of Systems Constitutional: Positive for malaise/fatigue and night sweats. Cardiovascular: Positive for dyspnea on exertion and leg swelling. Musculoskeletal: Positive for back pain. Neurological: Positive for light-headedness. All other systems reviewed and are negative. [facility] History general Narrative - Reported Note Date & Type Note Facility History general Narrative - Reported Type Medical History HTN (hypertension) Medical History Psoriasis Surgical History hernia repair Surgical History hydrocele repair [facility] Other History general Narrative - Reported Note Date & Type Note Facility History general Narrative - Reported Type Medical History HTN (hypertension) Medical History Psoriasis Surgical History hernia repair Surgical History hydrocele repair Hospitalization History SEE ABOVE [facility] Other Summary Purpose Family History No Family History Records FoundNo Family History Records Found Advance Directives No Advanced Directives Records FoundNo Advanced Directives Records Found Additional Source Comments (unrecognized sect ion and content) No Status Records FoundNo Status Records Found INFORMATION SOURCE (unrecogn ized section and content) DATE CREATED AUTHOR 09/30/2022 [facility] DATE CREATED AUTHOR AUTHOR'S LIBRA LOZANO 02/08/2023 [facility] REASON FOR VISIT (unrecogniz ed section and content) UPPER RESPIRATORY ISSUESPOSS THRUSH, CHEST CONGESTION FOR RECORDS PERTAINING TO PATIENTS WHO ARE OR HAVE BEEN ENROLLED IN A CHEMICAL DEPENDENCY/SUBSTANCEABUSE PROGRAM, SOME INFORMATION MAY BE OMITTED. This clinical summary was aggregated from multiple sources. Caution should be exercised in using it in the provision of clinical care. This summary normalizes information from multiple sources, and as a consequence, information in this document may materially change the coding, format and clinical context of patient data. In addition, data may be omitted in some cases. CLINICAL DECISIONS SHOULD BE BASED ON THE PRIMARY CLINICAL RECORDS. [facility] [employer] [facility]. provides no warranty or guarantee of the accuracy or completeness of information in this document.
== END 2024-01-04 07:07 | disposition home or self-care (01) ==
LOC: CT 07:06
PROVIDERS: PCP Family Medicine; Visit Provider Family Medicine
DX: Z12.12 Encounter for screening for malignant neoplasm of rectum (principal); F17.219 Nicotine dependence, cigarettes, with unspecified nicotine-induced disorders
CPT/HCPCS: 71271; G0328

== ENCOUNTER 2024-01-04 12:40 | Outpatient (REF) | payer BC, SELFPAY ==
--- OUTSIDE RECORDS SUMMARY | 2024-01-04 12:43 | XMS_ITS | CCD ---
Author Organization [facility] Care Team Providers Care Telephone Triage Nurse Name Role Phone JARED ELMORE Attending Unavailable [...] adverse reactions to drug (disorder) 09-21-19 23 [facility] Repository (2 sources) Sulfamethoxazole / Trimethoprim Drug Allergy hair loss [employer] Other (1 source) bee venom Drug allergy (disorder) 01-07-[address] [facility] Repository (1 source) Sulfonamides (Antibiotic) Drug allergy (disorder) 09-20-[address] [facility] Repository Medications Current Medications Medication Drug Class(es) Dates Sig (Normalized) Sig (Original) 0.8 ml adalimumab 50 mg/ml auto-injector (1 source) Tumor Necrosis Factor Luis Antonio Humira Pen 40 MG/0.8ML as directed Subcutaneous Active [id number] actuat albuterol 0.09 mg/actuat metered dose [...] Active Start: 12-07-[address] [facility] every eight hours Benzonatate 200 [...] 100 MG Oral for 30 Active nystatin [id number] unt/ml oral suspension (2 sources) Polyene Antifungal Start: 09-07-2023 Nystatin [id number] UNIT/ML 5 ml swish and swallow tid for 7 days Sep, Active Start: 12-07-2022 take 5 mL by mouth t hree times daily Nystatin [id number] UNIT/ML 5 ml Orally 3 times a [...] (COVID-19) RNA MARCI+probe Ql (Unsp spec) Positive [employer] Other COVID + FLU Quick Testing Negative [employer] Other CT LUNG CANCER SCREENINGon 01-18-2023 CT [...] JAM ENGEL Date: 2023-01-18 09:12 Normal [facility] HEMOGLOBINon 01-18-2023 Hemoglobin (Bld) [Mass/Vol] 15.2 g/dL Normal 14.0-18.0 [facility] Comment on above: Performed By: #### H GB ####[facility] [address] [place], [place] [address]Ir. Diane Webber QUICK STREPon 12-07-2022 S. pyogenes Ag Ql (Unsp spec) Negative [employer] Other nm STRESS/REST MULTIon 10-02 NM STRESS/REST MULTI Patient: RHETT VENEGAS Exam Date: 10/02/2022 : 1970 Gender:M Ordering : JARED ELMORE Admission #: [id number] Family : Order #: [id number] CLICK HERE TO VIEW EXAM RADIOLOGY REPORT [...] DEFECT: LOCATION: Basal inferior. Mid-inferior. Apical inferior. [place]. SIZE: Medium (3-4 segments). SEVERITY: Moderate. TYPE: [...] Engel M.D. on 10/03/2022 at 12:05 Normal [facility] Office Visiton 09-21-2022 Follow-up visit [id number] Rhett Venegas 1970 M Date Provider Department Center 09/21/2022 3848-JARED ELMORE [facility] Family History Problem Relation Age of Onset Coronary artery disease Mother Other Mother Family Status - Relation Status Age at Mother Level of Service:86054 MT OFFICE/OUTPATIENT NEW MODERATE MDM 45-59 MINUTES Reason for Visit and Comments: abnormal stress test [Other] Normal [facility] ECHOCARDIO M/2D COMPLETEon 1 ECHOCARDIO M/2D COMPLETE Patient: MIRAIMALISSA RHETT EricaJeremias Exam Date: 08/30/2022 : 1970 Gender:M Ordering : DR ARABELLA HILL . Admission #: [id number] Family : Order #: [id number] CLICK HERE TO VIEW EXAM ECHOCARDIOGRAM REPORT [...] M.D. on 09/04/2022 at 10:31 Normal [facility] INSULINon 08-18-2022 Insulin 10.2 uIU/mL Normal 2.6-24.[address] [facility] Comment on above: Performed By: #### I NSULIN ####[facility] [address] [place] [address]Dr. Diane Webber BNPon 08-17-2022 Natriuretic peptide B (Bld) [Mass/Vol] 57.0 pg/mL Normal <=900.0 [facility] Comment on above: Performed By: #### B VAPOR COATER, T7, TSH, CMP, LIPID #### [facility] [address] [address] [address] Diane Webber CBC AUTO DIFFon 08-17-2022 BASO # 0.1 103/ul Normal 0.0-0.1 [facility] Comment on above: Performed By: #### C BC #### [facility] [address] [address] [address] Diane Webber Basophils/100 WBC (Bld) 1.0 % Normal 0.2-2.0 [facility] Comment on above: Performed By: #### C BC #### [facility] [address] [address] [address] Diane Webber EO # 0.1 103/ul Normal 0.0-0.[address] [facility] Comment on above: Performed By: #### C BC #### [facility] [address] [address] [address] Diane Webber Eosinophils/100 WBC (Bld) 1.7 % Normal 0.9-7.[address] [facility] Comment on above: Performed By: #### C BC #### [facility] Laboratory [address] [place] [address] Dr. Diane Webber Erythrocyte distribution width (RBC) [Ratio] 12.4 % Normal 11.0-15.0 [facility] Comment on above: Performed By: #### C BC #### [facility] [address] [place] [address] Dr. Diane Webber Hematocrit (Bld) [Volume fraction] 45.3 % Normal 42.0-54.0 [facility] Comment on above: Performed By: #### C BC #### [facility] [address] [place] [address] Dr. Diane Webber Hemoglobin (Bld) [Mass/Vol] 15.5 g/dL Normal 14.0-18.0 [facility] Comment on above: Performed By: #### C BC #### [facility] [address] [place] [address] Dr. Diane Webber IG # 0.03 10e3/ul Normal 0.00-0.03 [facility] Comment on above: Performed By: #### C BC #### [facility] [address] [place] [address] Dr. Diane Webber IG % 0.4 % Normal 0.0-0.5 [facility] Comment on above: Performed By: #### C BC #### [facility] [address] [place] [address] Dr. Diane Webber LYMPH # 2.5 103/ul Normal 1.2-3.8 [facility] Comment on above: Performed By: #### C BC #### [facility] [address] [place] [address] Dr. Diane Webber Lymphocytes/100 WBC (Bld) 36.0 % Normal 20.5-60.0 [facility] Comment on above: Performed By: #### C BC #### [facility] [address] [place] [address] Dr. Diane Webber MANUAL DIFF REQ NO Normal [facility] Comment on above: Performed By: #### C BC #### [facility] [address] [place] [address] Dr. Diane Webber MCH (RBC) [Entitic mass] 33.3 pg Normal 25.9-34.[address] [facility] Comment on above: Performed By: #### C BC #### [facility] [address] [place] [address] Dr. Diane Webber MCHC (RBC) [Mass/Vol] 34.2 g/dL Normal 29.9-35.[address] [facility] Comment on above: Performed By: #### C BC #### [facility] [address] [place] [address] Dr. Diane Webber MCV (RBC) [Entitic vol] 97.2 fL Critically high 80.0-94.[address] [facility] Comment on above: Performed By: #### C BC #### [facility] [address] [place] [address] Dr. Diane Webber MONO # 0.8 103/ul Normal 0.3-0.8 [facility] Comment on above: Performed By: #### C BC #### [facility] [address] [place] [address] Dr. Diane Webber Monocytes/100 WBC (Bld) 10.9 % Normal 1.7-12.[address] [facility] Comment on above: Performed By: #### C BC #### [facility] [address] [place] [address] Dr. Diane Webber NEUT # 3.5 103/ul Normal 1.4-6.[address] [facility] Comment on above: Performed By: #### C BC #### [facility] [address] [place] [address] Dr. Diane Webber Neutrophils/100 WBC (Bld) 50.0 % Normal 43.0-75.[address] [facility] Comment on above: Performed By: #### C BC #### [facility] [address] [place] [address] Dr. Diane Webber Platelet mean volume (Bld) [Entitic vol] 9.5 fL Normal 9.5-13.[address] [facility] Comment on above: Performed By: #### C BC #### [facility] [address] [place], [place] [id number] Dr. Diane Webber PLT 220 103/ul Normal 150-[address] [facility] Comment on above: Performed By: #### C BC #### [facility] [address] [address] [address] Diane Webber RBC 4.66 106/ul Critically low 4.70-6.10 [facility] Comment on above: Performed By: #### C BC #### [facility] [address] [address] [address] Diane Webber WBC 7.1 103/ul Normal 4.0-11.0 [facility] Comment on above: Performed By: #### C BC #### [facility] [address] [address] [address] Diane Webber FREE THYROXINE INDEX T7on FTI 2.10 Normal 1.30-4.50 [facility] Comment on above: Performed By: #### B VAPOR COATER, T7, TSH, CMP, LIPID #### [facility] [address] [place] [address] Dr. Diane Webber T3U 35.0 % Normal 33.0-40.0 [facility] Comment on above: Performed By: #### B VAPOR COATER, T7, TSH, CMP, LIPID #### [facility] [address] [place] [address] Dr. Diane Webber T4 [Mass/Vol] 6.00 ug/dL Normal 4.50-12.10 [facility] Comment on above: Performed By: #### B VAPOR COATER, T7, TSH, CMP, LIPID #### [facility] [address] [place] [address] Dr. Diane Webber GLYCOHEMOGLOBIN A1Con 2021 ADA RECOMMENDATION SEE BELOW Normal [facility] Comment on above: Result Comment: ADA RECOMMENDED LIMIT 4.0 - 6.0 ADA THERAPEUTIC TARGET < 7.0 ACTION SUGGESTED > 7.0 Performed By: #### A 1C ####[facility] [address] [place] [address]Dr. Diane Webber Glucose [Mass/Vol] 114 mg/dL Normal [facility] Comment on above: Performed By: #### A 1C ####[facility] [address] [place], [place] [address]GoJeremias Webber HbA1c (Bld) [Mass fraction] 5.6 % Normal 4.5-6.2 [facility] Comment on above: Performed By: #### A 1C ####[facility] [address] [place], [place] [address]DjJeremias Webber IRONon 08-17-2022 Iron [Mass/Vol] 151.0 ug/dL Normal 65.0-175.0 [facility] Comment on above: Performed By: #### P SASC, IRON, VITAD ####[facility] [address] [place], [place] [address]RyJeremias Webber LIPID PROFILEon 08-17-2022 CHOL-HDL RATIO NORM SEE BELOW Normal [facility] Comment on above: Result Comment: 3.3 - 4.4 LOW RISK 4.4 - 7.1 AVERAGE RISK 7.1 - 11.0 MODERATE RISK >11.0 HIGH RISK Performed By: #### B VAPOR COATER, T7, TSH, CMP, LIPID #### [facility] [address] [address] [address] Diane Webber Cholesterol [Mass/Vol] 221 mg/dL Critically high <=200 [facility] Comment on above: Performed By: #### B VAPOR COATER, T7, TSH, CMP, LIPID #### [facility] [address] [id number] [address] Diane Webber Cholesterol in HDL [Mass/Vol] 68 mg/dL Critically high 40-60 [facility] Comment on above: Performed By: #### B VAPOR COATER, T7, TSH, CMP, LIPID #### [facility] [address] [place], [place] [address] Dr. Diane Webber Cholesterol in LDL [Mass/Vol] 118.6 mg/dL Normal [facility] Comment on above: Performed By: #### B VAPOR COATER, T7, TSH, CMP, LIPID #### [facility] [address] [place], [place] [address] Dr. Diane Webber Cholesterol.total/Ch olesterol in HDL [Mass ratio] 3.3 {ratio} Normal [facility] Comment on above: Performed By: #### B VAPOR COATER, T7, TSH, CMP, LIPID #### [facility] [address] [place] [address] Dr. Diane Webber HDL NORMAL > or = 60 mg/dl - LOW CARDIOVASCULAR RISK <40 mg/dl - HIGH CARDIOVASCULAR RISK Normal [facility] Comment on above: Performed By: #### B VAPOR COATER, T7, TSH, CMP, LIPID #### [facility] [address] [address] [address] Diane Webber LDL CALC NORMAL SEE BELOW Normal [facility] Comment on above: Result Comment: <100 mg/dl OPTIMAL 100 - 129 mg/dl NEAR OR ABOVE OPTIMAL 130 - 159 mg/dl BORDERLINE HIGH 160 - 189 mg/dl HIGH >190 mg/dl VERY HIGH Performed By: #### B VAPOR COATER, T7, TSH, CMP, LIPID #### [facility] [address] [place] [address] Dr. Diane Webber Triglyceride [Mass/Vol] 172 mg/dL Critically high <=150 [facility] Comment on above: Performed By: #### B VAPOR COATER, T7, TSH, CMP, LIPID #### [facility] [address] [place] [address] Dr. Diane Webber VLDL CALC 34.4 mg/dL Normal [facility] Comment on above: Performed By: #### B VAPOR COATER, T7, TSH, CMP, LIPID #### [facility] [address] [place] [address] Dr. Diane Webber PROF 14(COMP METB)on 022 Albumin [Mass/Vol] 3.7 g/dL Normal 3.4-5.0 [facility] Comment on above: Performed By: #### B VAPOR COATER, T7, TSH, CMP, LIPID #### [facility] [address] [place] [address] Dr. Diane Webber Albumin/Globulin [Mass ratio] 0.9 {ratio} Normal [facility] Comment on above: Performed By: #### B VAPOR COATER, T7, TSH, CMP, LIPID #### [facility] [address] [place] [address] Dr. Diane Webber ALP [Catalytic activity/Vol] 56 U/L Normal 46-116 [facility] Comment on above: Performed By: #### B VAPOR COATER, T7, TSH, CMP, LIPID #### [facility] [address] [place] [address] Dr. Diane Webber ALT [Catalytic activity/Vol] 53 U/L Normal 16-63 [facility] Comment on above: Performed By: #### B VAPOR COATER, T7, TSH, CMP, LIPID #### [facility] [address] [place] [address] Dr. Diane Webber Anion gap [Moles/Vol] 13.4 mmol/L Normal [facility] Comment on above: Performed By: #### B VAPOR COATER, T7, TSH, CMP, LIPID #### [facility] [address] [place] [address] Dr. Diane Webber AST [Catalytic activity/Vol] 26 U/L Normal 15-37 [facility] Comment on above: Performed By: #### B VAPOR COATER, T7, TSH, CMP, LIPID #### [facility] [address] [place] [address] Dr. Diane Webber Bilirubin [Mass/Vol] 0.5 mg/dL Normal 0.2-1.0 [facility] Comment on above: Performed By: #### B VAPOR COATER, T7, TSH, CMP, LIPID #### [facility] [address] [place] [address] Dr. Diane Webber Calcium [Mass/Vol] 9.1 mg/dL Normal 8.5-10.1 [facility] Comment on above: Performed By: #### B VAPOR COATER, T7, TSH, CMP, LIPID #### [facility] [address] [place] [address] Dr. Diane Webber Chloride [Moles/Vol] 102 mmol/L Normal 98-107 [facility] Comment on above: Performed By: #### B VAPOR COATER, T7, TSH, CMP, LIPID #### [facility] [address] [place] [address] Dr. Diane Webber CO2 [Moles/Vol] 26.9 mmol/L Normal 21.0-32.[address] [facility] Comment on above: Performed By: #### B VAPOR COATER, T7, TSH, CMP, LIPID #### [facility] [address] [place] [address] Dr. Diane Webber Creatinine [Mass/Vol] 0.88 mg/dL Normal 0.70-1.[address] [facility] Comment on above: Performed By: #### B VAPOR COATER, T7, TSH, CMP, LIPID #### [facility] [address] [place] [address] Dr. Diane Webber EGFR-AF SLOVAK >60 Normal >=[address] [facility] Comment on above: Performed By: #### B VAPOR COATER, T7, TSH, CMP, LIPID #### [facility] [address] [place] [address] Dr. Diane Webber EGFR-NON AF [place] >60 Normal >=[address] [facility] Comment on above: Performed By: #### B VAPOR COATER, T7, TSH, CMP, LIPID #### [facility] [address] [place] [address] Dr. Diane Webber Globulin (S) [Mass/Vol] 4.2 g/dL Normal [facility] Comment on above: Performed By: #### B VAPOR COATER, T7, TSH, CMP, LIPID #### [facility] [address] [place] [address] Dr. Diane Webber Glucose [Mass/Vol] 103 mg/dL Normal 74-106 [facility] Comment on above: Performed By: #### B VAPOR COATER, T7, TSH, CMP, LIPID #### [facility] [address] [place] [address] Dr. Diane Webber Potassium [Moles/Vol] 4.3 mmol/L Normal 3.5-5.[address] [facility] Comment on above: Performed By: #### B VAPOR COATER, T7, TSH, CMP, LIPID #### [facility] [address] [place] [address] Dr. Diane Webber Protein [Mass/Vol] 7.9 g/dL Normal 6.4-8.2 [facility] Comment on above: Performed By: #### B VAPOR COATER, T7, TSH, CMP, LIPID #### [facility] [address] [address] [address] Diane Webber Sodium [Moles/Vol] 138 mmol/L Normal 136-145 [facility] Comment on above: Performed By: #### B VAPOR COATER, T7, TSH, CMP, LIPID #### [facility] [address] [address] [address] Diane Webber Urea nitrogen [Mass/Vol] 8.0 mg/dL Normal 7.0-18.0 [facility] Comment on above: Performed By: #### B VAPOR COATER, T7, TSH, CMP, LIPID #### [facility] [address] [address] [address] Diane Webber Urea nitrogen/Creatinine [Mass ratio] 9.1 mg/mg Normal [facility] Comment on above: Performed By: #### B VAPOR COATER, T7, TSH, CMP, LIPID #### [facility] [address] [address] [address] Diane Webber TSHon 08-17-2022 TSH 1.506 uIU/mL Normal 0.358-3.740 [facility] Comment on above: Performed By: #### B VAPOR COATER, T7, TSH, CMP, LIPID #### [facility] [address] [address] [address] Diane Webber VITAMIN D 25 OHon 08-17-2022 VIT D 25-OH 23.0 ng/mL Normal [facility] Comment on above: Performed By: #### P SASC, IRON, VITAD ####[facility] [address] [place] [id number]. Diane Webber VIT D RANGES SEE BELOW Normal [facility] Comment on above: Result Comment: <20 ng/mL Vit D deficient 20 - <30 ng/mL Vit D insufficient 30 - 100 ng/mL Vit D sufficient >100 ng/mL Potential Toxicity Performed By: #### P SASC, IRON, VITAD ####[facility] [address] [place] [id number]. Diane Webber Vital Signs Date Time Vital Sign Value Performing Clinician Facility 09-07-2023 14:15-0500 Body height 180.34 cm Anne Fuchs [facility] [employer] Other 09-07-2023 14:15-0500 Body mass index (BMI) [Ratio] 37.74 kg/m2 Anne Jannette Other [facility] Other 09-07-2023 14:15-0500 Body temperature 99.1 [degF] Anne Jannette Other [facility] Other 09-07-2023 14:15-0500 Body weight 122.74 kg Anne Jannette Other [facility] Other 09-07-2023 14:15-0500 Respiratory rate 20 /min Anne Whatleymond Other [facility] Other 09-07-2023 14:15-0500 SaO2% (BldA) [Mass fraction] 98 % Anne Whatleymond Other [facility] Other 12-07-2022 13:50-0400 Body height 180.34 cm Anne Jannette Other [facility] Other 12-07-2022 13:50-0400 Body mass index (BMI) [Ratio] 35.92 kg/m2 Anne Jannette Other [facility] Other 12-07-2022 13:50-0400 Body temperature 97.9 [degF] Anne Jannette Other [facility] Other 12-07-2022 13:50-0400 Body weight 116.85 kg Anne Jannette Other [facility] Other 12-07-2022 13:50-0400 Diastolic blood pressure 117 mm[Hg] Anne Jannette Other [facility] Other 12-07-2022 13:50-0400 Respiratory rate 18 /min Anne Jannette Other [facility] Other 12-07-2022 13:50-0400 SaO2% (BldA) [Mass fraction] 97 % Anne Jannette Other [facility] Other 12-07-2022 13:50-0400 Systolic blood pressure 152 mm[Hg] Anne Jannette Other [facility] [facility] Other Encounters Encounter Date Encounter Type Care Provider Facility Start: 09-07-2023 End: 09-07-2023 ambulatory Anne Jannette Other [facility] Other Start: 09-07-2023 Office outpatient visit 15 minutes Anne Jannette [facility] Start: 01-30-2023 End: 01-30-[address] JENN MASON . Facility:[facility] Start: 01-18-2023 End: 01-19-2023 ambulatory HORACIO WILSON . Facility:[facility] Start: 12-07-2022 End: 12-07-2022 ambulatory Anne Whatleymond Other [employer] Other Start: 12-07-2022 Office outpatient visit 15 minutes Anne Jannette [facility] Start: 10-03-2022 End: 10-04-[address] ARABELLA HILL . Facility:[facility] Start: 10-02-2022 End: 10-03-[address] JAM ENGEL Facility:[facility] Start: 09-21-2022 End: 09-21-2022 ambulatory [facility] Start: 09-17-2022 End: 09-18-[address] ARABELLA HILL . Facility:[facility] Start: 08-30-2022 End: 08-31-[address] ARABELLA HILL . Facility:[facility] Start: 08-17-2022 End: 08-18-[address] ARABELLA HILL . Facility:[facility] Procedures Date Procedure Procedure Detail Performing Clinician Start: 08-17-[address] JENN HANSEN . Comment on above: Performed By: #### P SASC, IRON, VITAD ####[facility] [address] [place], [place] [address]IjJeremias Diane Webber Payers Date Payer Category Payer Unknown [id number] 2.16.84 [id number] 1970 Unknown [id number] 2.16.84 [id number] 1970 Unknown [id number] 2.16.84 [id number] 1970 Unknown [id number] 2.16.84 [id number] 1970 Unknown [id number] 2.16.84 [id number] 1970 Unknown [id number] 2.16.84 [id number] 1970 Unknown [id number] 2.16.84 [id number] 1958 Unknown [id number] 1958 Unknown [id number] [facility] [id number] Social History Date Type Detail Facility Unknown if ever smoked [facility] [employer] Other Sex Assigned At Sex Assigned At Bir th [employer] Other Evaluation note 09-07-2023 Note Date & [...] days Sep, Thrush, oral (ICD-10 - B37.0) [employer] [facility] Other Evaluation note 12-07-2022 Note Date & [...] Dec, Cough, unspecified type (ICD-10 - R05.9) [facility] [facility] Other Clinical Note 10-03-2022 Note Date & [...] and relayed in a separate dictation. [facility] Progress note 09-21-2022 Note Date [...] history of Hypertension, Psoriasis, and Psoriatic arthritis ([facility]). Surgical History He has a past [...] nuclear myocardial p (more content not included)... [facility] Progress note 09-21-2022 Note Date & Type [...] All other systems reviewed and are negative. [facility] History general Narrative - Reported Note Date & Type Note Facility History general Narrative - Reported Type Medical History HTN (hypertension) Medical History Psoriasis Surgical History hernia repair Surgical History hydrocele repair [employer] Other History general Narrative - Reported Note Date & Type Note Facility History general Narrative - Reported Type Medical History HTN (hypertension) Medical History Psoriasis Surgical History hernia repair Surgical History hydrocele repair Hospitalization History SEE ABOVE [employer] Other Summary Purpose Family History No Family History Records FoundNo Family History Records Found Advance Directives No Advanced Directives Records FoundNo Advanced Directives Records Found Additional Source Comments (unrecognized sect ion and content) No Status Records FoundNo Status Records Found INFORMATION SOURCE (unrecogn ized section and content) DATE CREATED AUTHOR 09/30/2022 [facility] DATE CREATED AUTHOR AUTHOR'S LIBRA LOZANO 02/08/2023 [facility] REASON FOR VISIT (unrecogniz ed [...] BE BASED ON THE PRIMARY CLINICAL RECORDS. [facility]. provides no warranty or guarantee of the accuracy or completeness of information in this document.
[2024-01-04 13:57] LABS: Occult Blood Negative
== END 2024-01-04 12:41 | disposition home or self-care (01) ==
LOC: LAB 12:40
PROVIDERS: PCP Family Medicine; Visit Provider Family Medicine
DX: Z12.12 Encounter for screening for malignant neoplasm of rectum (principal)
CPT/HCPCS: G0328

== ENCOUNTER 2024-07-31 08:09 | Outpatient (OUT) | payer BC, SELFPAY ==
--- OUTSIDE RECORDS SUMMARY | 2024-07-31 08:12 | XMS_ITS | CCD ---
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 Name Role Phone JARED ELMORE Attending Unavailable Anne Bhatia Unavailable DR JENN POLLARD Attending Unavailable HAY ., DR BARAJAS Admitting [...] Unavailable ZIEBER, DR JAM Coulter Consulting Unavailable ALGHOTHPAUL, MOHAMAD Admitting Unavailable HOY ., DR BELL Primary Care Unavailable AMARJITHOSOLEDAD, MOHCHUN Attending Unavailable ALGHOMOSESANI, MOHLESTERD Consulting Unavailable HOY ., DR BELL Admitting Unavailable HOY ., DR BELL Attending Unavailable HOY ., DR BELL Consulting Unavailable HOY ., DR BELL Primary Care Unavailable Allergies Allergy Classification Reported Allergen(s) Allergy Type Date of Onset Reaction(s) Facility (1 source) Sulfonamides (Antibiotic); Translations: [SULFA (SULFONAMIDE ANTIBIOTICS)] Propensity to adverse reactions to drug (disorder) 09-21-19 [facility] Repository (2 sources) Sulfamethoxazole / Trimethoprim Drug Allergy hair loss [facility] Other (1 source) bee venom Drug allergy (disorder) 01-07-20 14 [facility] Repository (1 source) Sulfonamides (Antibiotic) Drug allergy (disorder) 09-20-19 17 [facility] Repository Medications Current Medications Medication Drug Class(es) Dates Sig (Normalized) Sig (Original) 0.8 ml adalimumab 50 mg/ml auto-injector (1 source) Tumor Necrosis Factor Luis Antonio Humira Pen 40 MG/0.8ML as directed Subcutaneous Active [id number] actuat albuterol 0.09 mg/actuat metered dose [...] Active Start: 12-07-2022 take 1 capsule by [facility] every eight hours Benzonatate 200 [...] 100 MG Oral for 30 Active nystatin [id number] unt/ml oral suspension (2 sources) Polyene Antifungal Start: 09-07-2023 Nystatin 042140 UNIT/ML 5 ml swish and swallow tid for 7 days Sep, Active Start: 12-07-2022 take 5 mL by mouth t hree times daily Nystatin 605312 UNIT/ML 5 ml Orally 3 times a [...] (COVID-19) RNA MARCI+probe Ql (Unsp spec) Positive [facility] Other COVID + FLU Quick Testing Negative [facility] Other CT LUNG CANCER SCREENINGon 0 01-18-2023 CT LUNG CANCER SCREENING EXAMINATION: CT [...] by: JAM ENGEL Date: 2023-01-18 09:12 Normal [facility] HEMOGLOBINon 01-18-2023 Hemoglobin (Bld) [Mass/Vol] 15.2 g/dL Normal 14.0-18.0 [facility] Comment on above: Performed By: #### H GB ####[facility] [address] [place], [place] [address]Zf. Diane Webber QUICK STREPon 12-07-2022 S. pyogenes Ag Ql (Unsp spec) Negative [facility] Other NM STRESS/REST MULTIon 10-02 NM STRESS/REST MULTI Patient: RHETT VENEGAS Exam Date: 10/02/2022 : 1970 Gender:M Ordering : JARED ELMORE Admission #: [id number] Family : Order #: [id number] CLICK HERE TO VIEW EXAM RADIOLOGY REPORT [...] study was normal per attending physician Dr. oTmas . For more details please see separate cardiac stress test report. FINDINGS: QUALITY OF STUDY: Excellent. PERFUSION DEFECT: LOCATION: Basal inferior. Mid-inferior. Apical inferior. Mullens. SIZE: Medium (3-4 segments). SEVERITY: Moderate. TYPE: [...] M.D. on 10/03/2022 at 12:05 Normal [facility] Office Visiton 09-21-2022 Follow-up visit [id number] Rhett Venegas 1970 M Date Provider Department Center 09/21/2022 3848-JARED ELMORE [facility] Family History Problem Relation Age of Onset Coronary artery disease Mother Other Mother Family Status - Relation Status Age at Mother Level of Service:[address] [place] OFFICE/OUTPATIENT NEW MODERATE MDM 45-59 MINUTES Reason for Visit and Comments: abnormal stress test [Other] Normal [facility] ECHOCARDIO M/2D COMPLETEon 1 ECHOCARDIO M/2D COMPLETE Patient: MIRIAMALISSA RHETT Maldonado. Exam Date: 08/30/2022 : 1970 Gender:M Ordering : DR ARABELLA HILL . Admission #: [id number] Family : Order #: [id number] CLICK HERE TO VIEW EXAM ECHOCARDIOGRAM REPORT [...] M.D. on 09/04/2022 at 10:31 Normal [facility] INSULINon 08-18-2022 Insulin 10.2 uIU/mL Normal 2.6-24.9 [facility] Comment on above: Performed By: #### I NSULIN ####[facility] [address] [place] [address]Dr. Diane Webber BNPon 08-17-2022 Natriuretic peptide B (Bld) [Mass/Vol] 57.0 pg/mL Normal <=900.0 [facility] Comment on above: Performed By: #### B FOOD PORTER, T7, TSH, CMP, LIPID #### [facility] [address] [address] [address] Diane Webber CBC AUTO DIFFon 08-17-2022 BASO # 0.1 103/ul Normal 0.0-0.1 [facility] Comment on above: Performed By: #### C BC #### [facility] [address] [address] [address] Diane Webber Basophils/100 WBC (Bld) 1.0 % Normal 0.2-2.0 [facility] Comment on above: Performed By: #### C BC #### [facility] [address] [address] [address] Diane Webber EO # 0.1 103/ul Normal 0.0-0.7 [facility] Comment on above: Performed By: #### C BC #### [facility] [address] [place] [address] Dr. Diane Webber Eosinophils/100 WBC (Bld) 1.7 % Normal 0.9-7.0 [facility] Comment on above: Performed By: #### C BC #### [facility] [address] [place] [address] Dr. Diane Webber Erythrocyte distribution width (RBC) [Ratio] 12.4 % Normal 11.0-15.0 [facility] Comment on above: Performed By: #### C BC #### [facility] [address] [place] [address] Dr. Diane Webber Hematocrit (Bld) [Volume fraction] 45.3 % Normal 42.0-54.0 [facility] Comment on above: Performed By: #### C BC #### [facility] [address] [place] [address] Dr. Diane Webber Hemoglobin (Bld) [Mass/Vol] 15.5 g/dL Normal 14.0-18.0 [facility] Comment on above: Performed By: #### C BC #### [facility] [address] [place] [address] Dr. Diane Webber IG # 0.03 10e3/ul Normal 0.00-0.03 [facility] Comment on above: Performed By: #### C BC #### [facility] [address] [place] [address] Dr. Diane Webber IG % 0.4 % Normal 0.0-0.5 [facility] Comment on above: Performed By: #### C BC #### [facility] [address] [place] [address] Dr. Diane Webber LYMPH # 2.5 103/ul Normal 1.2-3.8 [facility] Comment on above: Performed By: #### C BC #### [facility] [address] [place] [address] Dr. Diane Webber Lymphocytes/100 WBC (Bld) 36.0 % Normal 20.5-60.0 [facility] Comment on above: Performed By: #### C BC #### [facility] [address] [place] [address] Dr. Diane Webber MANUAL DIFF REQ NO [facility] Comment on above: Performed By: #### C BC #### [facility] [address] [place], [place] [id number] Dr. Diane Webber MCH (RBC) [Entitic mass] 33.3 pg Normal 25.9-34.0 [facility] Comment on above: Performed By: #### C BC #### [facility] [address] [place] [address] Dr. Diane Webber MCHC (RBC) [Mass/Vol] 34.2 g/dL Normal 29.9-35.2 [facility] Comment on above: Performed By: #### C BC #### [facility] [address] [place] [address] Dr. Diane Webber MCV (RBC) [Entitic vol] 97.2 fL Critically high 80.0-94.0 [facility] Comment on above: Performed By: #### C BC #### [facility] [address] [place] [address] Dr. Diane Webber MONO # 0.8 103/ul Normal 0.3-0.8 [facility] Comment on above: Performed By: #### C BC #### [facility] [address] [place] [address] Dr. Diane Webber Monocytes/100 WBC (Bld) 10.9 % Normal 1.7-12.0 [facility] Comment on above: Performed By: #### C BC #### [facility] [address] [place] [address] Dr. Diane Webber NEUT # 3.5 103/ul Normal 1.4-6.5 [facility] Comment on above: Performed By: #### C BC #### [facility] [address] [place] [address] Dr. Diane Webber Neutrophils/100 WBC (Bld) 50.0 % Normal 43.0-75.0 [facility] Comment on above: Performed By: #### C BC #### [facility] [address] [place] [address] Dr. Diane Webber Platelet mean volume (Bld) [Entitic vol] 9.5 fL Normal 9.5-13.5 [facility] Comment on above: Performed By: #### C BC #### [facility] [address] [address] [address] Diane Webber PLT 220 103/ul Normal 150-450 [facility] Comment on above: Performed By: #### C BC #### [facility] [address] [address] [address] Diane Webber RBC 4.66 106/ul Critically low 4.70-6.10 [facility] Comment on above: Performed By: #### C BC #### [facility] [address] [address] [address] Diane Webber WBC 7.1 103/ul Normal 4.0-11.0 [facility] Comment on above: Performed By: #### C BC #### [facility] [address] [address] [address] Diane Webber FREE THYROXINE INDEX T7on FTI 2.10 Normal 1.30-4.50 [facility] Comment on above: Performed By: #### B FOOD PORTER, T7, TSH, CMP, LIPID #### [facility] [address] [address] [address] Diane Webber T3U 35.0 % Normal 33.0-40.0 [facility] Comment on above: Performed By: #### B FOOD PORTER, T7, TSH, CMP, LIPID #### [facility] [address] [address] [address] Diane Webber T4 [Mass/Vol] 6.00 ug/dL Normal 4.50-12.10 [facility] [place] [facility] Comment on above: Performed By: #### B FOOD PORTER, T7, TSH, CMP, LIPID #### [facility] [address] [address] [address] Diane Webber GLYCOHEMOGLOBIN A1Con 2021 ADA RECOMMENDATION SEE BELOW Normal [facility] Comment on above: Result Comment: ADA RECOMMENDED LIMIT 4.0 - 6.0 ADA THERAPEUTIC TARGET < 7.0 ACTION SUGGESTED > 7.0 Performed By: #### A 1C ####[facility] [address] [place] [address]Dr. Diane Webber Glucose [Mass/Vol] 114 mg/dL Normal [facility] Comment on above: Performed By: #### A 1C ####[facility] [address] [place], [place] [address]KoDr. Diane Webber HbA1c (Bld) [Mass fraction] 5.6 % Normal 4.5-6.2 [facility] Comment on above: Performed By: #### A 1C ####[facility] [address] [place], [place] [address]LuDr. Diane Webber IRONon 08-17-2022 Iron [Mass/Vol] 151.0 ug/dL Normal 65.0-175.0 [place] Comment on above: Performed By: #### P SASC, IRON, VITAD ####[facility] [address] [place], [place] [address]CeJeremias Webber LIPID PROFILEon 08-17-2022 CHOL-HDL RATIO NORM SEE BELOW Normal [facility] Comment on above: Result Comment: 3.3 - 4.4 LOW RISK 4.4 - 7.1 AVERAGE RISK 7.1 - 11.0 MODERATE RISK >11.0 HIGH RISK Performed By: #### B FOOD PORTER, T7, TSH, CMP, LIPID #### [facility] [address] [address] [address] Diane Webber Cholesterol [Mass/Vol] 221 mg/dL Critically high <=200 [facility] Comment on above: Performed By: #### B FOOD PORTER, T7, TSH, CMP, LIPID #### [facility] [address] [address] [address] Diane Webber Cholesterol in HDL [Mass/Vol] 68 mg/dL Critically high 40-60 [facility] Comment on above: Performed By: #### B FOOD PORTER, T7, TSH, CMP, LIPID #### [facility] [address] [address] [address] Diane Webber Cholesterol in LDL [Mass/Vol] 118.6 mg/dL Normal [facility] Comment on above: Performed By: #### B FOOD PORTER, T7, TSH, CMP, LIPID #### [facility] [address] [address] [address] Diane Webber Cholesterol.total/Ch olesterol in HDL [Mass ratio] 3.3 {ratio} Normal [facility] Comment on above: Performed By: #### B FOOD PORTER, T7, TSH, CMP, LIPID #### [facility] [address] [place] [address] Dr. Diane Webber HDL NORMAL > or = 60 mg/dl - LOW CARDIOVASCULAR RISK <40 mg/dl - HIGH CARDIOVASCULAR RISK Normal [facility] Comment on above: Performed By: #### B FOOD PORTER, T7, TSH, CMP, LIPID #### [facility] [address] [place] [address] Dr. Diane Webber LDL CALC NORMAL SEE BELOW Normal [facility] Comment on above: Result Comment: <100 mg/dl OPTIMAL 100 - 129 mg/dl NEAR OR ABOVE OPTIMAL 130 - 159 mg/dl BORDERLINE HIGH 160 - 189 mg/dl HIGH >190 mg/dl VERY HIGH Performed By: #### B FOOD PORTER, T7, TSH, CMP, LIPID #### [facility] [address] [place] [address] Dr. Diane Webber Triglyceride [Mass/Vol] 172 mg/dL Critically high <=150 [facility] Comment on above: Performed By: #### B FOOD PORTER, T7, TSH, CMP, LIPID #### [facility] [address] [place] [address] Dr. Diane Webber VLDL CALC 34.4 mg/dL Normal [facility] Comment on above: Performed By: #### B FOOD PORTER, T7, TSH, CMP, LIPID #### [facility] [address] [place] [address] Dr. Diane Webber PROF 14(COMP METB)on 022 Albumin [Mass/Vol] 3.7 g/dL Normal 3.4-5.0 [facility] Comment on above: Performed By: #### B FOOD PORTER, T7, TSH, CMP, LIPID #### [facility] [address] [place] [address] Dr. Diane Webber Albumin/Globulin [Mass ratio] 0.9 {ratio} Normal [facility] Comment on above: Performed By: #### B FOOD PORTER, T7, TSH, CMP, LIPID #### [facility] [address] [address] [address] Diane Webber ALP [Catalytic activity/Vol] 56 U/L Normal 46-116 [facility] Comment on above: Performed By: #### B FOOD PORTER, T7, TSH, CMP, LIPID #### [facility] [address] [place] [address] Dr. Diane Webber ALT [Catalytic activity/Vol] 53 U/L Normal 16-63 [facility] Comment on above: Performed By: #### B FOOD PORTER, T7, TSH, CMP, LIPID #### [facility] [address] [place] [address] Dr. Daine Webber Anion gap [Moles/Vol] 13.4 mmol/L Normal [facility] Comment on above: Performed By: #### B FOOD PORTER, T7, TSH, CMP, LIPID #### [facility] [address] [place] [address] Dr. Diane Webber AST [Catalytic activity/Vol] 26 U/L Normal 15-37 [facility] Comment on above: Performed By: #### B FOOD PORTER, T7, TSH, CMP, LIPID #### [facility] [address] [place] [address] Dr. Diane Webber Bilirubin [Mass/Vol] 0.5 mg/dL Normal 0.2-1.0 [facility] Comment on above: Performed By: #### B FOOD PORTER, T7, TSH, CMP, LIPID #### [facility] [address] [place] [address] Dr. Diane Webber Calcium [Mass/Vol] 9.1 mg/dL Normal 8.5-10.1 [facility] Comment on above: Performed By: #### B FOOD PORTER, T7, TSH, CMP, LIPID #### [facility] [address] [address] [address] Diane Webber Chloride [Moles/Vol] 102 mmol/L Normal 98-107 [facility] Comment on above: Performed By: #### B FOOD PORTER, T7, TSH, CMP, LIPID #### [facility] [address] [address] [address] Diane Webber CO2 [Moles/Vol] 26.9 mmol/L Normal 21.0-32.0 [place] Comment on above: Performed By: #### B FOOD PORTER, T7, TSH, CMP, LIPID #### [facility] [address] [place] [address] Dr. Diane Webber Creatinine [Mass/Vol] 0.88 mg/dL Normal 0.70-1.30 [facility] Comment on above: Performed By: #### B FOOD PORTER, T7, TSH, CMP, LIPID #### [facility] [address] [place] [address] Dr. Diane Webber EGFR-AF MOLDOVAN >60 Normal >=60 [facility] Comment on above: Performed By: #### B FOOD PORTER, T7, TSH, CMP, LIPID #### [facility] [address] [place] [address] Dr. Diane Webber EGFR-NON AF MOLDOVAN >60 Normal >=60 [facility] Comment on above: Performed By: #### B FOOD PORTER, T7, TSH, CMP, LIPID #### [facility] [address] [place] [address] Dr. Diane Webber Globulin (S) [Mass/Vol] 4.2 g/dL Normal [facility] Comment on above: Performed By: #### B FOOD PORTER, T7, TSH, CMP, LIPID #### [facility] [address] [place] [address] Dr. Diane Webber Glucose [Mass/Vol] 103 mg/dL Normal 74-106 [facility] Comment on above: Performed By: #### B FOOD PORTER, T7, TSH, CMP, LIPID #### [facility] [address] [place] [address] Dr. Diane Webber Potassium [Moles/Vol] 4.3 mmol/L Normal 3.5-5.1 [facility] Comment on above: Performed By: #### B FOOD PORTER, T7, TSH, CMP, LIPID #### [facility] [address] [place] [address] Dr. Diane Webber Protein [Mass/Vol] 7.9 g/dL Normal 6.4-8.2 [facility] Comment on above: Performed By: #### B FOOD PORTER, T7, TSH, CMP, LIPID #### [facility] [address] [address] [address] Diane Webber Sodium [Moles/Vol] 138 mmol/L Normal 136-145 [facility] Comment on above: Performed By: #### B FOOD PORTER, T7, TSH, CMP, LIPID #### [facility] [address] [address] [address] Diane Webber Urea nitrogen [Mass/Vol] 8.0 mg/dL Normal 7.0-18.0 [facility] Comment on above: Performed By: #### B FOOD PORTER, T7, TSH, CMP, LIPID #### [facility] [address] [place] [address] Dr. Diane Webber Urea nitrogen/Creatinine [Mass ratio] 9.1 mg/mg Normal [facility] Comment on above: Performed By: #### B FOOD PORTER, T7, TSH, CMP, LIPID #### [facility] [address] [place] [address] Dr. Diane Webber TSHon 08-17-2022 TSH 1.506 uIU/mL Normal 0.358-3.740 [facility] Comment on above: Performed By: #### B FOOD PORTER, T7, TSH, CMP, LIPID #### [facility] [address] [place] [address] Dr. Diane Webber VITAMIN D 25 OHon 08-17-2022 VIT D 25-OH 23.0 ng/mL Normal [facility] Comment on above: Performed By: #### P SASC, IRON, VITAD ####[facility] [address] [address]Dr. Diane Webber VIT D RANGES SEE BELOW Normal [facility] Comment on above: Result Comment: <20 ng/mL Vit D deficient 20 - <30 ng/mL Vit D insufficient 30 - 100 ng/mL Vit D sufficient >100 ng/mL Potential Toxicity Performed By: #### P SASC, IRON, VITAD ####[facility] [address] [address]Dr. Diane Webber Vital Signs Date Time Vital Sign Value Performing Clinician Facility 09-07-2023 14:15-0500 Body height 180.34 cm Anne Jannette Other [facility] Other 09-07-2023 14:15-0500 Body mass index (BMI) [Ratio] 37.74 kg/m2 Anne Jannette Other [facility] Other 09-07-2023 14:15-0500 Body temperature 99.1 [degF] Anne Jannette Other [facility] Other 09-07-2023 14:15-0500 Body weight 122.74 kg Anne Jannette Other [facility] Other 09-07-2023 14:15-0500 Respiratory rate 20 /min Anne Jannette Other [facility] Other 09-07-2023 14:15-0500 SaO2% (BldA) [Mass fraction] 98 % Anne Jannette Other [facility] Other 12-07-2022 13:50-0400 Body height 180.34 cm Anne Jannette Other [facility] Other 12-07-2022 13:50-0400 Body mass index (BMI) [Ratio] 35.92 kg/m2 Anne Jannette Other [facility] Other 12-07-2022 13:50-0400 Body temperature 97.9 [degF] Anne Jannette Other [facility] Other 12-07-2022 13:50-0400 Body weight 116.85 kg Anne Jannette Other [facility] Other 12-07-2022 13:50-0400 Diastolic blood pressure 117 mm[Hg] Anne Jannette Other [facility] Other 12-07-2022 13:50-0400 Respiratory rate 18 /min Anne Jannette Other [facility] Other 12-07-2022 13:50-0400 SaO2% (BldA) [Mass fraction] 97 % Anne Jannette Other [facility] Other 12-07-2022 13:50-0400 Systolic blood pressure 152 mm[Hg] Anne Jannette Other [facility] Other Encounters Encounter Date Encounter Type Care Provider Facility Start: 09-07-2023 End: 09-07-2023 ambulatory Anne Jannette Other [facility] Other Start: 09-07-2023 Office outpatient visit 15 minutes Anne Jannette [facility] Start: 01-30-2023 End: 01-30-[address] JENN MASON . Facility: Start: 01-18-2023 End: 01-19-2023 ambulatory HORACIO WILSON . Facility:[facility] Start: 12-07-2022 End: 12-07-2022 ambulatory Anne Jannette Other [facility] Other Start: 12-07-2022 Office outpatient visit 15 minutes Anne Jannette [facility] Start: 10-03-2022 End: 10-04-[address] ARABELLA HILL . Facility:[facility] Start: 10-02-2022 End: 10-03-[address] JAM ENGEL Facility:[facility] Start: 09-21-2022 End: 09-21-2022 ambulatory [facility] Start: 09-17-2022 End: 09-18-[address] ARABELLA HILL . Facility:[facility] Start: 08-30-2022 End: 08-31-[address] ARABELLA HILL . Facility:[facility] Start: 08-17-2022 End: 08-18-[address] ARABELLA HILL . Facility:[facility] Procedures Date Procedure Procedure Detail Performing Clinician Start: 08-17-[address] JENN HANSEN . Comment on above: Performed By: #### P SASC, IRON, VITAD ####[facility] [address] [place], [place] [address]Dn. Diane Webber Payers Date Payer Category Payer Unknown [id number] 2.16.84 [id number] 1970 Unknown [id number] 2.16.84 [id number] 1970 Unknown [id number] 2.16.84 [id number] 1970 Unknown [id number] 2.16.84 [id number] 1970 Unknown [id number] 2.16.84 [id number] 1970 Unknown [id number] 2.16.84 [id number] 1970 Unknown [id number] 2.16.84 [id number] 1958 Unknown [id number] 1958 Unknown [id number] [facility] [id number] Social History Date Type Detail Facility Unknown if ever smoked [facility] Other Sex Assigned At Sex Assigned At Bir th [facility] Other Evaluation note 09-07-2023 Note Date & [...] days Sep, Thrush, oral (ICD-10 - B37.0) [facility] Other Evaluation note 12-07-2022 Note Date & [...] Dec, Cough, unspecified type (ICD-10 - R05.9) [facility] Other Clinical Note 10-03-2022 Note Date & [...] and relayed in a separate dictation. [facility] Progress note 09-21-2022 Note Date & [...] history of Hypertension, Psoriasis, and Psoriatic arthritis (CMS/HCC). Surgical History He has a past surgical [...] nuclear myocardial p (more content not included)... [facility] Progress note 09-21-2022 Note Date & [...] All other systems reviewed and are negative. [facility] History general Narrative - Reported Note Date & Type Note Facility History general Narrative - Reported Type Medical History HTN (hypertension) Medical History Psoriasis Surgical History hernia repair Surgical History hydrocele repair [facility] Other History general Narrative - Reported Note Date & Type Note Facility History general Narrative - Reported Type Medical History HTN (hypertension) Medical History Psoriasis Surgical History hernia repair Surgical History hydrocele repair Hospitalization History SEE ABOVE [facility] Other Summary Purpose Family History No Family History Records FoundNo Family History Records Found Advance Directives No Advanced Directives Records FoundNo Advanced Directives Records Found Additional Source Comments (unrecognized sect ion and content) No Status Records FoundNo Status Records Found INFORMATION SOURCE (unrecogn ized section and content) DATE CREATED AUTHOR 09/30/2022 [facility] DATE CREATED AUTHOR AUTHOR'S ORGANOLGA ATION 02/08/2023 [facility] REASON FOR VISIT (unrecogniz ed [...] BE BASED ON THE PRIMARY CLINICAL RECORDS. [employer] [facility]. provides no warranty or guarantee of the accuracy or completeness of information in this document.
[2024-07-31 08:37] LABS: Basophils Absolute Auto 0.1 10^3/uL (0.0-0.1); Eosinophils Absolute Auto 0.1 10^3/uL (0.0-0.7); Eosinophils Percent Auto 1.6 % (0.9-7.0); Hematocrit 47.4 % (42.0-54.0); Hemoglobin 16.4 g/dL (14.0-18.0); Immature Granulocytes Abs Auto 0.03 10^3/uL (0.00-0.03); Immature Granulocytes Pct Auto 0.4 % (0.0-0.5); Lymphocytes Absolute Auto 2.3 10^3/uL (1.2-3.8); Lymphocytes Percent Auto 34.1 % (20.5-60.0); Mean Corpuscular HGB Conc 34.6 g/dL (29.9-35.2); Mean Corpuscular Hemoglobin 34.2 pg (25.9-34.0); Mean Platelet Volume 9.5 fL (9.5-13.5); Monocytes Absolute Auto 0.8 10^3/uL (0.3-0.8); Monocytes Percent Auto 11.6 % (1.7-12.0); Neutrophils Absolute Auto 3.5 10^3/uL (1.4-6.5); Neutrophils Percent Auto 51.3 % (43.0-75.0); Platelet Count 221 10^3/uL (150-450); Red Blood Count 4.79 10^6/uL (4.70-6.10); Red Cell Distribution Width 11.9 % (11.0-15.0); White Blood Count 6.8 10^3/uL (4.0-11.0)
[2024-07-31 09:23] LABS: Alanine Aminotransferase 42 U/L (16-63); Albumin Globulin Ratio 0.9; Albumin Level 3.5 g/dL (3.4-5.0); Alkaline Phosphatase 75 U/L (46-116); Anion Gap 14.9; Aspartate Amino Transferase 19 U/L (15-37); BUN Creatinine Ratio 12.4; Bilirubin Total 0.4 mg/dL (0.2-1.0); Calcium 9.1 mg/dL (8.5-10.1); Carbon Dioxide 26.8 mmol/L (21.0-32.0); Chloride 104 mmol/L (98-107); Chol HDL Ratio 3.6; Cholesterol 234 mg/dL (<=200); Estimated GFR (African America >60 (>=60 mL/min/1.73m^2); Estimated GFR (Non-African Ame >60 (>=60 mL/min/1.73m^2); Free T3 2.72 pg/mL (2.18-3.98); Glucose 108 mg/dL (74-106); HDL Cholesterol 65 mg/dL (40-60); Potassium 4.7 mmol/L (3.5-5.1); Sodium 141 mmol/L (136-145); Thyroid Stimulating Hormone 2.061 uIU/mL (0.358-3.740); Total Protein 7.5 g/dL (6.4-8.2); Triglycerides 100 mg/dL (<=150); Troponin I High Sensitivity 16.1 pg/mL (4.0-76.1)
[2024-07-31 10:59] LABS: Prostate Specific Antigen Scrn 0.71 ng/mL (<=4.00)
[2024-07-31 11:17] LABS: Estimated Average Glucose 114 mg/dL; Glycohemoglobin A1C 5.6 % (4.5-6.2)
[2024-07-31 11:43] LABS: Internal Control Within Normal Limits; Occult Blood Positive
[2024-08-02 12:07] LABS: Insulin 12.5 uIU/mL (2.6-24.9)
== END 2024-07-31 08:10 | disposition home or self-care (01) ==
LOC: LAB 08:10
PROVIDERS: PCP Family Medicine; Visit Provider Family Medicine
DX: Z00.00 Encounter for general adult medical examination without abnormal findings (principal)
CPT/HCPCS: 36415; 80053; 80061; 83036; 83525; 83880; 84436; 84443; 84481; 84484; 85025; G0103; G0328

== ENCOUNTER 2024-08-11 06:10 | Outpatient (OUT) | payer BC, SELFPAY ==
--- NOTE | 2024-08-11 06:20 | NM_ITS ---
Patient Name: ISIAH VENEGAS MR#: [id number] : 1970 Exam Date: 08/11/2024 Ordering Doctor: DR Chema Hill . RADIOLOGY REPORT PROCEDURE: NM BENITA PERF SPECT REST STR COMPARISON: None. INDICATIONS: CHEST PAIN, DYSPNEA TECHNIQUE: Exam Description: Stress/Rest two day protocol gated SPECT Rest Imagin.6 mCi Tc-99m Cardiolite IV on 08/11/2024 Stress Imaging 25.9 mCi Tc-99m Cardiolite IV on 08/12/2024 Exercise Protocol: Leonel Heart Rate (bpm): Rest: 93 Max: 142 PMHR: 85 Blood Pressure: Rest: 130/98 Max: 180/104 Exercise Time: Minutes: 7 Seconds: 05 Stage Reached: Stage: 3 Mets 10.0 Symptoms: Rest and peak stress ECG findings were pending and the exercise portion of the study was pending per attending physician Dr. AGRAWAL . For more details please see separate cardiac stress test report. FINDINGS: QUALITY OF STUDY: PERFUSION DEFECT: LOCATION: Basal inferior. Mid-inferior. Apical inferior. [place]. SIZE: Medium (3-4 segments). SEVERITY: Moderate. TYPE: Persistent. WALL MOTION: Moderate hypokinesis: Basal inferior. Mid-inferior. Apical inferior. LV SIZE: Enlarged; EDV 138 mL. TID / TCD: None; 0.7 LVEF: Abnormal. Calculated EF 54%. SUMMARY: Myocardial perfusion imaging study has ABNORMAL findings. CONCLUSION: 1. Moderate sized transmural defect in the inferior wall on stress images, stable on rest images with no redistribution 2. Dilated left ventricle, end-diastolic volume 138 milliliters 3. Borderline low left ventricular ejection fraction of 54% 4. Pending exercise test results Dictated by: Pranay Day MD on 08/12/2024 at 15:00 Approved by: Pranay Day MD on 08/12/2024 at 15:02
== END 2024-08-11 06:11 | disposition home or self-care (01) ==
LOC: NM 06:10
PROVIDERS: PCP Family Medicine; Visit Provider Family Medicine
DX: R07.9 Chest pain, unspecified (principal)
CPT/HCPCS: 78452; A9500

== ENCOUNTER 2024-08-12 11:57 | Outpatient (OUT) | payer BC, SELFPAY ==
--- OUTSIDE RECORDS SUMMARY | 2024-08-12 12:13 | XMS_ITS | CCD ---
Author Organization [facility] CliniSyaz Care Team Providers Care [employer] Name Role Phone JARED ELMORE Attending Unavailable Anne Bhatia Unavailable ISABELLA ., DR BARAJAS Attending Unavailable HAY ., DR [...] Attending Unavailable SAMSA ., HORACIO Admitting Unavailable ZIQUENTINER, DR JAM Coulter Consulting Unavailable HOY ., DR BELL Primary Care Unavailable SAMSA ., HORACIO Consulting Unavailable KATELYNN ., DR BELL Primary Care Unavailable AMARJITHOSOLEDAD, MOHAMAD Admitting Unavailable ALGHOSOLEDAD, MOHLESTERD Attending Unavailable RAMÍREZ, MOHCHUN Consulting Unavailable ZIEBGUILLERMO, DR JAM Coulter Consulting Unavailable RAMÍREZ, JARED Admitting Unavailable HOY ., DR BELL Primary Care Unavailable RAMÍREZ, MOHCHUN Attending Unavailable RAMÍREZ, MOHAMAD Consulting Unavailable HOY ., DR BELL Admitting Unavailable HOY ., DR BELL Attending Unavailable HOY ., DR BELL Consulting Unavailable MARYY ., DR BELL Primary Care Unavailable Bar ARRINGTON Attending Unavailable Arabella Pace Referring Unavailable Allergies Allergy Classification Reported Allergen(s) Allergy Type Date of Onset Reaction(s) Facility (1 source) Sulfonamides (Antibiotic); Translations: [SULFA (SULFONAMIDE ANTIBIOTICS)] Propensity to adverse reactions to drug (disorder) 09-21-19 [facility] Repository (2 sources) Sulfamethoxazole / Trimethoprim Drug Allergy hair loss [employer] Other (1 source) bee venom Drug allergy (disorder) 01-07-20 14 [facility] Repository (1 source) Sulfonamides (Antibiotic) Drug allergy (disorder) 09-20-19 17 [facility] Medications Current Medications Medication Drug Class(es) Dates Sig (Normalized) Sig (Original) 0.8 ml adalimumab 50 mg/ml auto-injector (1 source) Tumor Necrosis Factor Luis Antonio Humira Pen 40 MG/0.8ML as directed Subcutaneous Active [id number] 60 actuat albuterol 0.09 mg/actuat metered dose [...] Active Start: 12-07-2022 take 1 capsule by mo [facility] monett every eight hours Benzonatate 200 MG 1 [...] 100 MG Oral for 30 Active nystatin 352410 unt/ml oral suspension (2 sources) Polyene Antifungal Start: 09-07-2023 Nystatin 544303 UNIT/ML 5 ml swish and swallow tid for 7 days Sep, Active Start: 12-07-2022 take 5 mL by mouth t hree times daily Nystatin 545641 UNIT/ML 5 ml Orally 3 times a [...] (COVID-19) RNA MARCI+probe Ql (Unsp spec) Positive [facility] Other COVID + FLU Quick Testing Negative [facility] Other CT LUNG CANCER SCREENINGon 0 01-18-2023 [...] by: JAM ENGEL Date: 2023-01-18 09:12 Normal [facility] HEMOGLOBINon 01-18-2023 Hemoglobin (Bld) [Mass/Vol] 15.2 g/dL Normal 14.0-18.0 [facility] Comment on above: Performed By: #### H GB ####[facility] [address] [place], [place] [address]Fn. Diane Webber QUICK STREPon 12-07-2022 S. pyogenes Ag Ql (Unsp spec) Negative [facility] Other nm STRESS/REST MULTIon 10-02 NM STRESS/REST MULTI Patient: RHETT HART Exam Date: 10/02/2022 : 1970 Gender:M Ordering : JARED ELMORE Admission #: [id number] Family : Order #: [id number] CLICK HERE TO VIEW EXAM RADIOLOGY REPORT [...] DEFECT: LOCATION: Basal inferior. Mid-inferior. Apical inferior. [place]. SIZE: Medium (3-4 segments). SEVERITY: Moderate. TYPE: [...] Engel M.D. on 10/03/2022 at 12:05 Normal [facility] Office Visiton 09-21-2022 Follow-up visit [id number] Rhett Hart 1970 M Date Provider Department Center 09/21/2022 3848-JARED ELMORE [facility] Family History Problem Relation Age of Onset Coronary artery disease Mother Other Mother Family Status - Relation Status Age at Mother Level of Service:33274 [place] OFFICE/OUTPATIENT NEW MODERATE MDM 45-59 MINUTES Reason for Visit and Comments: abnormal stress test [Other] Normal [facility] ECHOCARDIO M/2D COMPLETEon 1 ECHOCARDIO M/2D COMPLETE Patient: RHETT HART Exam Date: 08/30/2022 : 1970 Gender:M Ordering : DR ARABELLA PACE . Admission #: [id number] Family : Order #: [id number] CLICK HERE TO VIEW EXAM ECHOCARDIOGRAM REPORT [...] M.D. on 09/04/2022 at 10:31 Normal [facility] INSULINon 08-18-2022 Insulin 10.2 uIU/mL Normal 2.6-24.9 [facility] Comment on above: Performed By: #### I NSULIN ####[facility] [address] [place] [address]Dr. Diane Webber BNPon 08-17-2022 Natriuretic peptide B (Bld) [Mass/Vol] 57.0 pg/mL Normal <=900.0 [facility] Comment on above: Performed By: #### B GERIATRIC ASSISTANT, T7, TSH, CMP, LIPID #### [facility] [address] [place] [address] Dr. Diane Webber CBC AUTO DIFFon 08-17-2022 BASO # 0.1 103/ul Normal 0.0-0.1 [facility] Comment on above: Performed By: #### C BC #### [facility] [address] [place] [address] Dr. Diane Webber Basophils/100 WBC (Bld) 1.0 % Normal 0.2-2.0 [facility] Comment on above: Performed By: #### C BC #### [facility] [address] [address] [address] Diane Webber EO # 0.1 103/ul Normal 0.0-0.7 [facility] Comment on above: Performed By: #### C BC #### [facility] [address] [place] [address] Dr. Diane Webber Eosinophils/100 WBC (Bld) 1.7 % Normal 0.9-7.0 [facility] Comment on above: Performed By: #### C BC #### [facility] [address] [place] [address] Dr. Diane Webber Erythrocyte distribution width (RBC) [Ratio] 12.4 % Normal 11.0-15.0 [facility] Comment on above: Performed By: #### C BC #### [facility] [address] [place] [address] Dr. Diane Webber Hematocrit (Bld) [Volume fraction] 45.3 % Normal 42.0-54.0 [facility] Comment on above: Performed By: #### C BC #### [facility] [address] [place] [address] Dr. Diane Webber Hemoglobin (Bld) [Mass/Vol] 15.5 g/dL Normal 14.0-18.0 [facility] Comment on above: Performed By: #### C BC #### [facility] [address] [place] [address] Dr. Diane Webber IG # 0.03 10e3/ul Normal 0.00-0.03 [facility] Comment on above: Performed By: #### C BC #### [facility] [address] [place] [address] Dr. Diane Webber IG % 0.4 % Normal 0.0-0.5 [facility] Comment on above: Performed By: #### C BC #### [facility] [address] [place] [address] Dr. Diane Webber LYMPH # 2.5 103/ul Normal 1.2-3.8 [facility] Comment on above: Performed By: #### C BC #### [facility] [address] [place] [address] Dr. Diane Webber Lymphocytes/100 WBC (Bld) 36.0 % Normal 20.5-60.0 [facility] Comment on above: Performed By: #### C BC #### [facility] [address] [place] [address] Dr. Diane Webber MANUAL DIFF REQ NO Normal [facility] Comment on above: Performed By: #### C BC #### [facility] [address] [address] [address] Diane Webber MCH (RBC) [Entitic mass] 33.3 pg Normal 25.9-34.0 [facility] Comment on above: Performed By: #### C BC #### [facility] [address] [address] [address] Diane Webber MCHC (RBC) [Mass/Vol] 34.2 g/dL Normal 29.9-35.2 [facility] Comment on above: Performed By: #### C BC #### [facility] [address] [address] [address] Diane Webber MCV (RBC) [Entitic vol] 97.2 fL Critically high 80.0-94.0 [facility] Comment on above: Performed By: #### C BC #### [facility] [address] [place] [address] Dr. Diane Webber MONO # 0.8 103/ul Normal 0.3-0.8 [facility] Comment on above: Performed By: #### C BC #### [facility] [address] [place] [address] Dr. Diane Webber Monocytes/100 WBC (Bld) 10.9 % Normal 1.7-12.0 [facility] Comment on above: Performed By: #### C BC #### [facility] [address] [place] [address] Dr. Diane Webber NEUT # 3.5 103/ul Normal 1.4-6.5 [facility] Comment on above: Performed By: #### C BC #### [facility] [address] [place] [address] Dr. Diane Webber Neutrophils/100 WBC (Bld) 50.0 % Normal 43.0-75.0 [facility] Comment on above: Performed By: #### C BC #### [facility] [address] [place] [address] Dr. Diane Webber Platelet mean volume (Bld) [Entitic vol] 9.5 fL Normal 9.5-13.5 [facility] Comment on above: Performed By: #### C BC #### [facility] [address] [address] [address] Diane Webber PLT 220 103/ul Normal 150-450 [facility] Comment on above: Performed By: #### C BC #### [facility] [address] [address] [address] Diane Webber RBC 4.66 106/ul Critically low 4.70-6.10 [facility] Comment on above: Performed By: #### C BC #### [facility] [address] [address] [address] Diane Webber WBC 7.1 103/ul Normal 4.0-11.0 [facility] Comment on above: Performed By: #### C BC #### [facility] [address] [address] [address] Diane Webber FREE THYROXINE INDEX T7on FTI 2.10 Normal 1.30-4.50 [facility] Comment on above: Performed By: #### B GERIATRIC ASSISTANT, T7, TSH, CMP, LIPID #### [facility] [address] [address] [address] Diane Webber T3U 35.0 % Normal 33.0-40.0 [facility] Comment on above: Performed By: #### B GERIATRIC ASSISTANT, T7, TSH, CMP, LIPID #### [facility] [address] [address] [address] Diane Webber T4 [Mass/Vol] 6.00 ug/dL Normal 4.50-12.10 [facility] Comment on above: Performed By: #### B GERIATRIC ASSISTANT, T7, TSH, CMP, LIPID #### [facility] [address] [address] [address] Diane Webber GLYCOHEMOGLOBIN A1Con 2021 ADA RECOMMENDATION SEE BELOW Normal [facility] Comment on above: Result Comment: ADA RECOMMENDED LIMIT 4.0 - 6.0 ADA THERAPEUTIC TARGET < 7.0 ACTION SUGGESTED > 7.0 Performed By: #### A 1C ####[facility] [address] [place], [place] [address]Kt. Diane Webber Glucose [Mass/Vol] 114 mg/dL Normal [facility] Comment on above: Performed By: #### A 1C ####[facility] [address] [place] [id number]. Diane Webber HbA1c (Bld) [Mass fraction] 5.6 % Normal 4.5-6.2 [facility] Comment on above: Performed By: #### A 1C ####[facility] [address] [place] [address]Dr. Diane Webber IRONon 08-17-2022 Iron [Mass/Vol] 151.0 ug/dL Normal 65.0-175.0 [facility] Comment on above: Performed By: #### P SASC, IRON, VITAD ####[facility] [address] [place] [id number]. Diane Webber LIPID PROFILEon 08-17-2022 CHOL-HDL RATIO NORM SEE BELOW Normal [facility] Comment on above: Result Comment: 3.3 - 4.4 LOW RISK 4.4 - 7.1 AVERAGE RISK 7.1 - 11.0 MODERATE RISK >11.0 HIGH RISK Performed By: #### B GERIATRIC ASSISTANT, T7, TSH, CMP, LIPID #### [facility] [address] [address] [address] Diane Webber Cholesterol [Mass/Vol] 221 mg/dL Critically high <=200 [facility] Comment on above: Performed By: #### B GERIATRIC ASSISTANT, T7, TSH, CMP, LIPID #### [facility] [address] [address] [address] Diane Webber Cholesterol in HDL [Mass/Vol] 68 mg/dL Critically high 40-60 [facility] Comment on above: Performed By: #### B GERIATRIC ASSISTANT, T7, TSH, CMP, LIPID #### [facility] [address] [address] [address] Diane Webber Cholesterol in LDL [Mass/Vol] 118.6 mg/dL Normal [facility] Comment on above: Performed By: #### B GERIATRIC ASSISTANT, T7, TSH, CMP, LIPID #### [facility] [address] [address] [address] Diane Webber Cholesterol.total/Ch olesterol in HDL [Mass ratio] 3.3 {ratio} Normal [facility] Comment on above: Performed By: #### B GERIATRIC ASSISTANT, T7, TSH, CMP, LIPID #### [facility] [address] [address] [address] Diane Webber HDL NORMAL > or = 60 mg/dl - LOW CARDIOVASCULAR RISK <40 mg/dl - HIGH CARDIOVASCULAR RISK Normal [facility] Comment on above: Performed By: #### B GERIATRIC ASSISTANT, T7, TSH, CMP, LIPID #### [facility] [address] [address] [address] Diane Webber LDL CALC NORMAL SEE BELOW Normal [facility] Comment on above: Result Comment: <100 mg/dl OPTIMAL 100 - 129 mg/dl NEAR OR ABOVE OPTIMAL 130 - 159 mg/dl BORDERLINE HIGH 160 - 189 mg/dl HIGH >190 mg/dl VERY HIGH Performed By: #### B GERIATRIC ASSISTANT, T7, TSH, CMP, LIPID #### [facility] [address] [address] [address] Diane Webber Triglyceride [Mass/Vol] 172 mg/dL Critically high <=150 [facility] Comment on above: Performed By: #### B GERIATRIC ASSISTANT, T7, TSH, CMP, LIPID #### [facility] [address] [address] [address] Diane Webber VLDL CALC 34.4 mg/dL Normal [facility] Comment on above: Performed By: #### B GERIATRIC ASSISTANT, T7, TSH, CMP, LIPID #### [facility] [address] [place] [address] Dr. Diane Webber PROF 14(COMP METB)on 022 Albumin [Mass/Vol] 3.7 g/dL Normal 3.4-5.0 [facility] Comment on above: Performed By: #### B GERIATRIC ASSISTANT, T7, TSH, CMP, LIPID #### [facility] [address] [place] [address] Dr. Diane Webber Albumin/Globulin [Mass ratio] 0.9 {ratio} Normal [facility] Comment on above: Performed By: #### B GERIATRIC ASSISTANT, T7, TSH, CMP, LIPID #### [facility] [address] [address] [address] Diane Webber ALP [Catalytic activity/Vol] 56 U/L Normal 46-116 [facility] Comment on above: Performed By: #### B GERIATRIC ASSISTANT, T7, TSH, CMP, LIPID #### [facility] [address] [place] [address] Dr. Diane Webber ALT [Catalytic activity/Vol] 53 U/L Normal 16-63 [facility] Comment on above: Performed By: #### B GERIATRIC ASSISTANT, T7, TSH, CMP, LIPID #### [facility] [address] [place] [address] Dr. Diane Webber Anion gap [Moles/Vol] 13.4 mmol/L Normal [facility] Comment on above: Performed By: #### B GERIATRIC ASSISTANT, T7, TSH, CMP, LIPID #### [facility] [address] [place] [address] Dr. Diane Webber AST [Catalytic activity/Vol] 26 U/L Normal 15-37 [facility] Comment on above: Performed By: #### B GERIATRIC ASSISTANT, T7, TSH, CMP, LIPID #### [facility] [address] [place] [address] Dr. Diane Webber Bilirubin [Mass/Vol] 0.5 mg/dL Normal 0.2-1.0 [facility] Comment on above: Performed By: #### B GERIATRIC ASSISTANT, T7, TSH, CMP, LIPID #### [facility] [address] [place] [address] Dr. Diane Webber Calcium [Mass/Vol] 9.1 mg/dL Normal 8.5-10.1 [facility] Comment on above: Performed By: #### B GERIATRIC ASSISTANT, T7, TSH, CMP, LIPID #### [facility] [address] [place] [address] Dr. Diane Webber Chloride [Moles/Vol] 102 mmol/L Normal 98-107 [facility] Comment on above: Performed By: #### B GERIATRIC ASSISTANT, T7, TSH, CMP, LIPID #### [facility] [address] [address] [address] Diane Webber CO2 [Moles/Vol] 26.9 mmol/L Normal 21.0-32.0 [facility] Comment on above: Performed By: #### B GERIATRIC ASSISTANT, T7, TSH, CMP, LIPID #### [facility] [address] [address] [address] Diane Webber Creatinine [Mass/Vol] 0.88 mg/dL Normal 0.70-1.30 [facility] Comment on above: Performed By: #### B GERIATRIC ASSISTANT, T7, TSH, CMP, LIPID #### [facility] [address] [place] [address] Dr. Diane Webber EGFR-AF SAMOAN >60 Normal >=60 [facility] Comment on above: Performed By: #### B GERIATRIC ASSISTANT, T7, TSH, CMP, LIPID #### [facility] [address] [place] [address] Dr. Diane Webber EGFR-NON AF SAMOAN >60 Normal >=60 [facility] Comment on above: Performed By: #### B GERIATRIC ASSISTANT, T7, TSH, CMP, LIPID #### [facility] [address] [place] [address] Dr. Diane Webber Globulin (S) [Mass/Vol] 4.2 g/dL Normal [facility] Comment on above: Performed By: #### B GERIATRIC ASSISTANT, T7, TSH, CMP, LIPID #### [facility] [address] [place] [address] Dr. Diane Webber Glucose [Mass/Vol] 103 mg/dL Normal 74-106 [facility] Comment on above: Performed By: #### B GERIATRIC ASSISTANT, T7, TSH, CMP, LIPID #### [facility] [address] [place] [address] Dr. Diane Webber Potassium [Moles/Vol] 4.3 mmol/L Normal 3.5-5.1 [facility] Comment on above: Performed By: #### B GERIATRIC ASSISTANT, T7, TSH, CMP, LIPID #### [facility] [address] [place] [address] Dr. Diane Webber Protein [Mass/Vol] 7.9 g/dL Normal 6.4-8.2 [facility] Comment on above: Performed By: #### B GERIATRIC ASSISTANT, T7, TSH, CMP, LIPID #### [facility] [address] [address] [address] Diane Webber Sodium [Moles/Vol] 138 mmol/L Normal 136-145 [facility] Comment on above: Performed By: #### B GERIATRIC ASSISTANT, T7, TSH, CMP, LIPID #### [facility] [address] [address] [address] Diane Webber Urea nitrogen [Mass/Vol] 8.0 mg/dL Normal 7.0-18.0 [facility] Comment on above: Performed By: #### B GERIATRIC ASSISTANT, T7, TSH, CMP, LIPID #### [facility] [address] [place] [address] Dr. Diane Webber Urea nitrogen/Creatinine [Mass ratio] 9.1 mg/mg Normal [facility] Comment on above: Performed By: #### B GERIATRIC ASSISTANT, T7, TSH, CMP, LIPID #### [facility] [address] [place] [address] Dr. Diane Webber TSHon 08-17-2022 TSH 1.506 uIU/mL Normal 0.358-3.740 [facility] Comment on above: Performed By: #### B GERIATRIC ASSISTANT, T7, TSH, CMP, LIPID #### [facility] [address] [place] [address] Dr. Diane Webber VITAMIN D 25 OHon 08-17-2022 VIT D 25-OH 23.0 ng/mL Normal [facility] Comment on above: Performed By: #### P SASC, IRON, VITAD ####[facility] [address] [address]Dr. Diane Webber VIT D RANGES SEE BELOW Normal [facility] Comment on above: Result Comment: <20 ng/mL Vit D deficient 20 - <30 ng/mL Vit D insufficient 30 - 100 ng/mL Vit D sufficient >100 ng/mL Potential Toxicity Performed By: #### P SASC, IRON, VITAD ####[facility] [address] [address]Dr. Diane Webber Vital Signs Date Time Vital Sign Value Performing Clinician Facility 09-07-2023 14:15-0500 Body height 180.34 cm Anne Whatleymond Other [facility] Other 09-07-2023 14:15-0500 Body mass index (BMI) [Ratio] 37.74 kg/m2 Anne Jannette Other [facility] Other 09-07-2023 14:15-0500 Body temperature 99.1 [degF] Anne Jannette Other [facility] Other 09-07-2023 14:15-0500 Body weight 122.74 kg Anne Jannette Other [facility] Other 09-07-2023 14:15-0500 Respiratory rate 20 /min Anne Jannette Other [facility] Other 09-07-2023 14:15-0500 SaO2% (BldA) [Mass fraction] 98 % Anne Jannette Other [facility] Other 12-07-2022 13:50-0400 Body height 180.34 cm Anne Jannette Other [facility] Other 12-07-2022 13:50-0400 Body mass index (BMI) [Ratio] 35.92 kg/m2 Anne Jannette Other [facility] Other 12-07-2022 13:50-0400 Body temperature 97.9 [degF] Anne Jannette Other [facility] Other 12-07-2022 13:50-0400 Body weight 116.85 kg Anne Jannette Other [facility] Other 12-07-2022 13:50-0400 Diastolic blood pressure 117 mm[Hg] Anne Jannette Other [facility] Other 12-07-2022 13:50-0400 Respiratory rate 18 /min Anne Jannette Other [facility] Other 12-07-2022 13:50-0400 SaO2% (BldA) [Mass fraction] 97 % Anne Jannette Other [facility] Other 12-07-2022 13:50-0400 Systolic blood pressure 152 mm[Hg] Anne Jannette Other [facility] Other Encounters Encounter Date Encounter Type Care Provider Facility Start: 08-19-2024 ambulatory Bar ARRINGTON Facility : [facility] Start: 08-03-2024 ambulatory Bar ARRINGTON Facility:[facility] Start: 09-07-2023 End: 09-07-2023 ambulatory Anne Bhatia Other [facility] Other Start: 09-07-2023 Office outpatient visit 15 minutes Annehannah Bhatia [facility] Start: 01-30-2023 End: 01-30-[address] JENN MASON . Facility:[facility] Start: 01-18-2023 End: 01-19-2023 ambulatory HORACIO WILSON . Facility:[facility] Start: 12-07-2022 End: 12-07-2022 ambulatory Anne Bhatia Other [facility] Other Start: 12-07-2022 Office outpatient visit 15 minutes Annehannah Bhatia [facility] Start: 10-03-2022 End: 10-04-[address] ARABELLA PACE . Facility:[facility] Start: 10-02-2022 End: 10-03-[address] JAM ENGEL Facility:[facility] Start: 09-21-2022 End: 09-21[facility] Start: 09-17-2022 End: 09-18-[address] ARABELLA PACE . Facility:[facility] Start: 08-30-2022 End: 08-31-[address] ARABELLA PACE . Facility:[facility] Start: 08-17-2022 End: 08-18-[address] ARABELLA PACE . Facility:[facility] Procedures Date Procedure Procedure Detail Performing Clinician Start: 08-17-[address]ENN HANSEN . Comment on above: Performed By: #### P SASC, IRON, VITAD ####[facility] [address] [place], [place] [address]MpJeremias Diane Webber Payers Date Payer Category Payer Unknown [id number] 2010 Unknown [id number] 1970 Unknown [id number] 2.16.84 [id number] 1970 Unknown [id number] 2.16.84 [id number] 1970 Unknown [id number] 2.16.84 [id number] 1970 Unknown [id number] 2.16.84 [id number] 1970 Unknown [id number] 2.16.84 [id number] 1970 Unknown [id number] 2.16.84 [id number] 1970 Unknown [id number] 2.16.84 [id number] 1971 Unknown [id number] 2.16.8 [id number] 1970 Unknown [id number] 2.16.8 [id number] 1959 Unknown [id number] 1959 Unknown [id number] [facility] [id number] Social History Date Type Detail Facility Unknown if ever smoked [facility] Other Sex Assigned At Sex Assigned At Bir th [facility] Other Evaluation note 09-07-2023 Note Date & [...] days Sep, Thrush, oral (ICD-10 - B37.0) [facility] Other Evaluation note 12-07-2022 Note Date & [...] Dec, Cough, unspecified type (ICD-10 - R05.9) [facility] Other Clinical Note 10-03-2022 Note Date & [...] and relayed in a separate dictation. [facility] Progress note 09-21-2022 Note Date & Type Note Facility 09-21-2022 Note Cardiology Clinic No te Chief Complaint: new patient visit for abnormal stress test HPI: Rhett Hart is a 52 y.o. male with a [...] history of Hypertension, Psoriasis, and Psoriatic arthritis ([facility]). Surgical History He has a past [...] nuclear myocardial p (more content not included)... [facility] Progress note 09-21-2022 Note Date & Type Note Facility 09-21-2022 Note New patient here to establish care. Ref from Dr. Pace for abnormal stress test. Patient states it [...] All other systems reviewed and are negative. [facility] History general Narrative - Reported Note Date & Type Note Facility History general Narrative - Reported Type Medical History HTN (hypertension) Medical History Psoriasis Surgical History hernia repair Surgical History hydrocele repair [facility] Other History general Narrative - Reported Note Date & Type Note Facility History general Narrative - Reported Type Medical History HTN (hypertension) Medical History Psoriasis Surgical History hernia repair Surgical History hydrocele repair Hospitalization History SEE ABOVE [facility] Other Summary Purpose Family History No Family History Records FoundNo Family History Records FoundNo Family History Records Found Advance Directives No Advanced Directives Records FoundNo Advanced Directives Records FoundNo Advanced Directives Records Found Additional Source Comments (unrecognized sect ion and content) No Status Records FoundNo Status Records FoundNo Status Records Found INFORMATION SOURCE (unrecogn ized section and content) DATE CREATED AUTHOR 09/30/2022 [facility] DATE CREATED AUTHOR AUTHOR'S ORGANIZ ATION 02/08/2023 [facility] DATE CREATED AUTHOR AUTHOR'S ORGANIZ ATION 08/04/2024 [facility] REASON FOR VISIT (unrecogniz ed section and [...] BE BASED ON THE PRIMARY CLINICAL RECORDS. [employer] provides no warranty or guarantee of the accuracy or completeness of information in this document.
--- NOTE | 2024-08-12 12:47 | PC.NURSE ---
Nursing Note Cardiac Stress Test Reviewed: Medication, allergies and patient history reviewed. Stress Test: [x ] Patient tolerated stress test well. [ ] Patient unable to tolerate walking on treadmill. Switched to Lexiscan stress test. [ ] No chest pain noted per patient [x ] Chest pain that resolved prior to leaving stress lab. [ ] No dyspnea noted. [x ] Dyspnea that resolved prior to leaving stress lab. [x ] Patient left stress lab asymptomatic and hemodynamically stable. [ ] Patient taken to the Emergency Room due to non-resolving symptoms following stress test. [x ] Patient achieved target heart rate. [ ] Patient unable to achieve target heart rate. [ ] Aminophylline administered as reversal agent to Lexiscan (Regadenoson). [ ] Nitro administered. Nursing Comments:
--- NOTE | 2024-08-12 13:50 | P.STRESS_ITS ---
Stress Test Stress Test Requesting physician: Chema Hill Procedure: Exercise Cardiolite stress test General Information: Reason for Stress Test: Chest pain Cardiac History and Risk Factors: HTN, Hypercholesterolemia, current smoker. Resting 12 - Lead Electrocardiogram: Rate & rhythm: Normal sinus at a rate of 87. [place]: Normal T-waves: Normal ST-segments: Downsloping in III, mild depression in aVF Stress Test: Protocol: Leonel protocol was followed, with injection of Cardiolite once target heart rate was achieved. Exercise capacity: Good exercise capacity. Total exercise time of 7 minutes 5 seconds reached Leonel stage 4 at 4.2 MPH, 14% grade, & 10 METs. Blood pressure: Initial: 130/98, Maximum: 180/104 Rate & rhythm: Patient remained in sinus rhythm during the exercise and recovery portions of the study.? The maximum heart rate was 142, which was 85% of the maximum predicted heart rate. PVCs noted. ST-segments & T-waves: During the end of exercise and into recovery, there was more accentuated ST-segment depression and downsloping in leads III and aVF (1mm), and ST-segment depression in lead II Patient response/symptoms: Mild chest pain which was reproducible, though not as intense, as chief complaint Interpretation: This is an abnormal exercise stress test with ST-segment downsloping/depression in the inferior leads in addition to reproducible chest pain. Cardiolite imaging interpretation will be reported separately. Clinical correlation required.?
== END 2024-08-12 11:58 | disposition home or self-care (01) ==
LOC: CARD 11:57
PROVIDERS: PCP Family Medicine; Visit Provider Family Medicine
DX: R07.9 Chest pain, unspecified (principal)
CPT/HCPCS: 93017

== ENCOUNTER 2024-09-03 14:24 | Outpatient (OUT) | payer BC, SELFPAY ==
--- OUTSIDE RECORDS SUMMARY | 2024-09-03 14:42 | XMS_ITS | CCD ---
Author Organization [facility] Care Team Providers Care Host/Hostess Head Name Role Phone Anne Bhatia Unavailable DR JENN POLLARD Attending [...] Care Unavailable SAMSA ., HORACIO Consulting Unavailable LIZ ., DR BELL Primary Care Unavailable ALGHOTHANI, MOHAMAD Admitting Unavailable ALGHOTHANI, MOHAMAD Attending Unavailable ALGHOTHANI, MOHAMAD Consulting Unavailable ZIEBER, DR JAM Coulter Consulting Unavailable ALGHOTHANI, MOHAMAD Admitting Unavailable HOY ., DR BELL Primary Care Unavailable ALGHOTHANI, MOHCHUN Attending Unavailable ALGHOTHANI, MOHAMAD Consulting Unavailable HOY ., DR BELL Admitting Unavailable HOY ., DR BELL Attending Unavailable HOY ., DR BELL Consulting Unavailable LIZ ., DR BELL Primary Care Unavailable Bar ARRINGTON Attending Unavailable Arabella Hill Referring Unavailable Arabella Hill Primary Care Physician [phone] LEYDI PONCE Attending Unavailable Allergies Allergy Classification Reported Allergen(s) Allergy Type Date of Onset Reaction(s) Facility (2 sources) Sulfamethoxazole / Trimethoprim Drug Allergy hair loss [facility] Other (1 source) bee venom Drug allergy (disorder) 01-07-20 14 [facility] Repository (1 source) Sulfonamides (Antibiotic) Drug allergy (disorder) 09-20-19 17 [facility] Repository (2 sources) Sulfonamides (Antibiotic); Translations: [sulfa drugs] Propensity to adverse reactions (disorder) Redness of skin of face [facility] Repository (1 source) Sulfonamides (Antibiotic); Translations: [SULFA (SULFONAMIDE ANTIBIOTICS)] Propensity to adverse reactions to drug (disorder) 09-21-19 23 [facility] Repository Medications Current Medications Medication Drug Class(es) Dates Sig (Normalized) Sig (Original) 0.8 ml adalimumab 50 mg/ml auto-injector (1 source) Tumor Necrosis Factor Luis Antonio Humira Pen 40 MG/0.8ML as directed Subcutaneous Active [id number] actuat albuterol 0.09 mg/actuat metered dose inhaler (1 source) beta2-Adrenergic Agonist Start: 09-07-2023 take 2 puff(s) by inhalation four times daily as needed Albuterol Sulfate HFA 108 (90 Base) MCG/ACT 2 puffs Inhalation 4 times a day prn Sep, Active amLODIPine 5 mg oral tablet (1 source) Dihydropyridine Calcium Channel Luis Antonio Start: 08-06-2024 take 1 tablet by mouth once daily amLODIPine 5 mg Tab 5 mg = 1 tab(s), Oral, Daily, Refills(s) 0 Start Date: 08/06/24 Status: Ordered apremilast 30 mg oral tablet (1 source) take 1 tablet by mouth every twelve hours Otezla 30 MG 1 tablet Orally Twice a day Active aspirin 325 mg delayed release oral tablet (1 source) Platelet Aggregation Inhibitor, Nonsteroidal Anti-inflammatory Drug Start: 08-19-2024 take 1 tablet by mouth once daily aspirin 325 mg Oral EC Tab 325 mg = 1 tab(s), Oral, Daily, Refills(s) 0 Start Date: 08/19/24 Status: Ordered benzonatate 200 mg oral capsule (2 sources) Non-narcotic Antitussive Start: 09-07-2023 take 1 capsule by mouth every eight hours Benzonatate 200 MG 1 capsule Orally Three times a day Sep, Active Start: 12-07-2022 take 1 capsule by mo [facility] every eight hours Benzonatate 200 MG 1 capsule Orally Three times a day Dec, Active fluconazole 150 mg oral tablet (1 source) Azole Antifungal Start: 12-07-2022 Diflucan 150 MG 1 tablet Orally once for 2 days Take 1 tablet today, take the second tablet in 3 days Dec, Active irbesartan 300 mg oral tablet (1 source) Angiotensin 2 Receptor Luis Antonio Start: 08-06-2024 take 1 tablet by mouth once daily irbesartan 300 mg Tab 300 mg = 1 tab(s), Oral, Daily, Refills(s) 0 Start Date: 08/06/24 Status: Ordered 1 ml ixekizumab 80 mg/ml prefilled syringe (1 source) Interleukin-17A Antagonist inject 1 mL by subcutaneous injection every other week Taltz 80 MG/ML 1 mL Subcutaneous EVERY 2 WEEKS Active losartan potassium 100 mg oral tablet (1 source) Angiotensin 2 Receptor Luis Antonio Losartan Potassium 100 MG Oral for 30 Active metoprolol tartrate 50 mg oral tablet (1 source) beta-Adrenergic Luis Antonio Start: 08-06-2024 take 1 tablet by mouth twice daily Metoprolol tartrate 50 mg Tab 50 mg = 1 tab(s), Oral, BID, Refills(s) 0 Start Date: 08/06/24 Status: Ordered nitroglycerin 0.4 mg sublingual tablet (1 source) Nitrate Vasodilator Start: 08-06-2024 nitroglycerin 0.4 mg sublingual Tab 0.4 mg = 1 tab(s), SubLingual, q5min, PRN for chest pain, Refills(s) 0 Start Date: 08/06/24 Status: Ordered nystatin [id number] unt/ml oral suspension (2 sources) Polyene Antifungal Start: 09-07-2023 Nystatin 294674 UNIT/ML 5 ml swish and swallow tid for 7 days Sep, Active Start: 12-07-2022 take 5 mL by mouth t hree times daily Nystatin [id number] UNIT/ML 5 ml Orally 3 times a [...] Classification Problem Date Documented Da te Episodic/Chronic Alcohol-related disorders (1 source) Alcoholism 08-06-2024 Chronic Anxiety disorders (1 source) Anxiety 08-06-2024 Chronic Chronic obstructive pulmonary disease and bronchiectasis (1 source) Chronic obstructive lung disease 08-06-2024 Chronic Congestive heart failure; nonhypertensive (1 source) Unspecified diastolic (congestive) heart failure; Translations: [UNSPECIFIED DIASTOLIC HEART FAILURE] Onset: 08-22-2022 Chronic Coronary atherosclerosis and other heart disease (2 sources) Unstable angina; Translations: [Unstable angina] Onset: 08-31-2024 Chronic Disorders of lipid metabolism (3 sources) Hypertriglyceridemia ; Translations: [Hyperlipidemia, unspecified] Onset: 08-31-2024 08-06-2024 Chronic Essential hypertension (3 sources) Essential (primary) hypertension; Translations: [Essential hypertension] Onset: 09-05-2022 08-06-2024 Chronic Hypertension with complications and secondary hypertension (1 source) Hypertensive heart disease with heart failure; Translations: [HTN HEART DISEASE W/HEART FAIL] Onset: 08-22-2022 Chronic Inflammation; infection of eye (except that caused by tuberculosis or sexually transmitteddisease) (1 source) Acute toxic conjunctivitis, right eye; Translations: [ACUTE TOXIC CONJUNCTIVITIS RT EYE] Onset: 01-30-2023 Episodic Mood disorders (1 source) Depressive disorder 11-13-2013 Chronic Mycoses (2 sources) Candidal stomatitis Episodic Nutritional deficiencies (1 source) Vitamin D deficiency, unspecified; Translations: [VITAMIN D DEFICIENCY UNSPECIFIED] Onset: 08-22-2022 Chronic Other eye disorders (3 sources) Ocular pain, right eye; Translations: [OCULAR PAIN RIGHT EYE] Onset: 01-30-2023 Episodic Other gastrointestinal disorders (1 source) Abnormal feces; Translations: [Other fecal abnormalities] Onset: 08-19-2024 Episodic Other gastrointestinal disorders (2 sources) Occult blood in stools 08-06-2024 Episodic Other inflammatory condition of skin (1 source) Psoriasis 08-06-2024 Chronic Other inflammatory condition of skin (1 source) Psoriatic arthritis 08-06-2024 Chronic Other lower respiratory disease (4 sources) Shortness of breath; Translations: [SHORTNESS OF BREATH] Onset: 01-18-2023 Episodic Other lower respiratory disease (2 sources) Other forms of dyspnea; Translations: [Other forms of dyspnea] Onset: 08-31-2024 Episodic Other nervous system disorders (1 source) Carpal tunnel syndrome 11-13-2013 Chronic Other nutritional; endocrine; and metabolic disorders (1 source) Body mass index 30+ - obesity 08-19-2024 Chronic Other nutritional; endocrine; and metabolic disorders (1 source) Obese class III 08-06-2024 Chronic Other screening for suspected conditions (not mental disorders or infectious disease) (4 sources) Encounter for screening for malignant neoplasm of prostate; Translations: [Encounter for screening for malignant neoplasm of rectum] Onset: 08-22-2022 Episodic Other upper respiratory infections (1 source) Acute pharyngitis, unspecified Episodic Residual codes; unclassified (1 source) Obstructive sleep apnea syndrome 08-06-2024 Chronic Residual codes; unclassified (1 source) Tobacco user 08-19-2024 Episodic Substance-related disorders (2 sources) Nicotine dependence, [...] FATIGUE] Onset: 08-17-2022 Episodic Nonspecific chest pain (8 sources) Other chest pain; Translations: [Chest pain, unspecified] Onset: 09-17-2022 Episodic Other lower respiratory disease (5 sources) Dyspnea, unspecified; Translations: [DYSPNEA UNSPECIFIED] Onset: 08-22-2022 Episodic Unclassified (1 source) Cough, unspecified type R05.9 Unclassified (1 source) Acute cough R05.1 Viral infection (1 source) COVID-19 Results Test Name Value Interpretation Reference Range Facility Ambulatory Visit Summaryon 1 10-20-2023 Ambulatory Visit Summary Ambulatory Visit Summary ISIAH VENEGAS :1970 Visit Date:08/19/2024 Ambulatory Visit Instructions Your Diagnosis Positive fecal occult blood test Your Care Team Attending Physician - NURY SNOW, Bar Coulter Primary Care Physician - Liz SNOW, Arabella Referring Physician - Arabella Hill MD This Is Your Medications List Contact prescribing physician if questions or concerns amlodipine (amLODIPine 5 mg Tab) aspirin (aspirin 325 mg Oral EC Tab) irbesartan (irbesartan 300 mg Tab) metoprolol (Metoprolol tartrate 50 mg Tab) nitroglycerin (nitroglycerin 0.4 mg sublingual Tab) Procedures Performed Carpal tunnel release, Excision of lesion of lip, FESS - Functional endoscopic sinus surgery - posterior ethmoidectomy, Repair of right inguinal hernia, Right hydrocelectomy. Discharge Vitals Heart Rate (Peripheral) 76 Respiratory Rate 16 Blood Pressure 142/102 Height 71 in Height 180.34 cm Weight 268.082 lb Weight 121.6 kg BMI 37.39 Medications What How Much When Instructions Unchanged amlodipine (amLODIPine 5 mg Tab) 1 Tablets By Mouth Every day Contact prescribing physician if questions or concerns Unchanged aspirin (aspirin 325 mg Oral EC Tab) 1 Tablets By Mouth Every day Contact prescribing physician if questions or concerns Unchanged irbesartan (irbesartan 300 mg Tab) 1 Tablets By Mouth Every day Contact prescribing physician if questions or concerns Unchanged metoprolol (Metoprolol tartrate 50 mg Tab) 1 Tablets By Mouth 2 times a day Contact prescribing physician if questions or concerns Unchanged nitroglycerin (nitroglycerin 0.4 mg sublingual Tab) 1 Tablets Sublingual Every 5 minutes as needed for for chest pain Contact prescribing physician if questions or concerns Allergies sulfa drugs (Redness of skin of face) Problems Ongoing - Any problem that you are currently receiving treatment for. Alcoholism Anxiety BMI 37.0-37.9, adult Chronic obstructive pulmonary disease Class 3 obesity Essential hypertension Hypertriglyceridemia Obstructive sleep apnea Positive fecal occult blood test Positive occult stool blood test Psoriasis Psoriatic arthritis Historical - Any problem that you are no longer receiving treatment for. Carpal tunnel syndrome Depression HTN - Hypertension Patient Survey You may receive a survey via text or e-mail asking about your office visit. Please share your experience with us by completing your survey. We appreciate your feedback and thank you for choosing us for your care. Normal [facility] COVID + FLU Quick Testingon 09-07-2023 SARS-CoV-2 (COVID-19) RNA MARCI+probe Ql (Unsp spec) Positive [facility] Other COVID + FLU Quick Testing Negative [facility] Other CT LUNG CANCER SCREENINGon 0 01-18-2023 [...] by: JAM ENGEL Date: 2023-01-18 09:12 Normal [facility] HEMOGLOBINon 01-18-2023 Hemoglobin (Bld) [Mass/Vol] 15.2 g/dL Normal 14.0-18.0 [facility] Comment on above: Performed By: #### H GB ####[facility] [id number] [place], [place] [address]VbJeremias Evelyndelmy Webber QUICK STREPon 12-07-2022 S. pyogenes Ag Ql (Unsp spec) Negative [facility] Other NM STRESS/REST MULTIon 10-02 NM STRESS/REST MULTI Patient: ISIAH VENEGAS Exam Date: 10/02/2022 : 1970 Gender:M Ordering : JARED ELMORE Admission #: [id number] Family : Order #: [id number] CLICK HERE TO VIEW EXAM RADIOLOGY REPORT [...] DEFECT: LOCATION: Basal inferior. Mid-inferior. Apical inferior. [place]. SIZE: Medium (3-4 segments). SEVERITY: Moderate. TYPE: [...] Engel M.D. on 10/03/2022 at 12:05 Normal [facility] ECHOCARDIO M/2D COMPLETEon 1 ECHOCARDIO M/2D COMPLETE Patient: ISIAH VENEGAS Exam Date: 08/30/2022 : 1970 Gender:M Ordering : DR ARABELLA HILL . Admission #: [id number] Family : Order #: [id number] CLICK HERE TO VIEW EXAM ECHOCARDIOGRAM REPORT [...] M.D. on 09/04/2022 at 10:31 Normal [facility] INSULINon 08-18-2022 Insulin 10.2 uIU/mL Normal 2.6-24.9 [facility] Comment on above: Performed By: #### I NSULIN ####[facility] [id number] [place] [address]Dr. Diane Webber BNPon 08-17-2022 Natriuretic peptide B (Bld) [Mass/Vol] 57.0 pg/mL Normal <=900.0 [facility] Comment on above: Performed By: #### B WATER/WASTEWATER ENGINEER, T7, TSH, CMP, LIPID #### [facility] [address] [place], [place] [address] Dr. Diane Webber CBC AUTO DIFFon 08-17-2022 BASO # 0.1 103/ul Normal 0.0-0.1 [facility] Comment on above: Performed By: #### C BC #### [facility] [address] [place] [address] Dr. Diane Webber Basophils/100 WBC (Bld) 1.0 % Normal 0.2-2.0 [facility] Comment on above: Performed By: #### C BC #### [facility] [address] [place] [address] Dr. Diane Webber EO # 0.1 103/ul Normal 0.0-0.7 [facility] Comment on above: Performed By: #### C BC #### [facility] [address] [place] [address] Dr. Diane Webber Eosinophils/100 WBC (Bld) 1.7 % Normal 0.9-7.0 [facility] Comment on above: Performed By: #### C BC #### [facility] [address] [place] [address] Dr. Diane Webber Erythrocyte distribution width (RBC) [Ratio] 12.4 % Normal 11.0-15.0 [facility] Comment on above: Performed By: #### C BC #### [facility] [address] [place] [address] Dr. Diane Webber Hematocrit (Bld) [Volume fraction] 45.3 % Normal 42.0-54.0 [facility] Comment on above: Performed By: #### C BC #### [facility] [address] [place] [address] Dr. Diane Webber Hemoglobin (Bld) [Mass/Vol] 15.5 g/dL Normal 14.0-18.0 [facility] Comment on above: Performed By: #### C BC #### [facility] [address] [place] [address] Dr. Diane Webber IG # 0.03 10e3/ul Normal 0.00-0.03 [facility] Comment on above: Performed By: #### C BC #### [facility] [address] [place] [address] Dr. Diane Webber IG % 0.4 % Normal 0.0-0.5 [facility] Comment on above: Performed By: #### C BC #### [facility] [address] [place] [address] [address] Diane Webber LYMPH # 2.5 103/ul Normal 1.2-3.8 [facility] Comment on above: Performed By: #### C BC #### [facility] [address] [place] [address] [address] Diane Webber Lymphocytes/100 WBC (Bld) 36.0 % Normal 20.5-60.0 [facility] Comment on above: Performed By: #### C BC #### [facility] [address] [place] [address] Dr. Diane Webber MANUAL DIFF REQ NO Normal [facility] Comment on above: Performed By: #### C BC #### [facility] [address] [place] [address] Dr. Diane Webber MCH (RBC) [Entitic mass] 33.3 pg Normal 25.9-34.0 [facility] Comment on above: Performed By: #### C BC #### [facility] [address] [place] [address] Dr. Diane Webber MCHC (RBC) [Mass/Vol] 34.2 g/dL Normal 29.9-35.2 [facility] Comment on above: Performed By: #### C BC #### [facility] [address] [place] [address] Dr. Diane Webber MCV (RBC) [Entitic vol] 97.2 fL Critically high 80.0-94.0 [facility] Comment on above: Performed By: #### C BC #### [facility] [address] [place] [address] Dr. Diane Webber MONO # 0.8 103/ul Normal 0.3-0.8 [facility] Comment on above: Performed By: #### C BC #### [facility] [address] [place] [address] Dr. Diane Webber Monocytes/100 WBC (Bld) 10.9 % Normal 1.7-12.0 [facility] Comment on above: Performed By: #### C BC #### [facility] [address] [place] [address] [address] Diane Webber NEUT # 3.5 103/ul Normal 1.4-6.5 [facility] Comment on above: Performed By: #### C BC #### [facility] [address] [place] [address] [address] Diane Webber Neutrophils/100 WBC (Bld) 50.0 % Normal 43.0-75.0 [facility] Comment on above: Performed By: #### C BC #### [facility] [address] [place] [address] Dr. Diane Webber Platelet mean volume (Bld) [Entitic vol] 9.5 fL Normal 9.5-13.5 [facility] Comment on above: Performed By: #### C BC #### [facility] [address] [place] [address] Dr. Diane Webber PLT 220 103/ul Normal 150-450 [facility] Comment on above: Performed By: #### C BC #### [facility] [address] [place] [address] Dr. Diane Webber RBC 4.66 106/ul Critically low 4.70-6.10 [facility] Comment on above: Performed By: #### C BC #### [facility] [address] [place] [address] Dr. Diane Webber WBC 7.1 103/ul Normal 4.0-11.0 [facility] Comment on above: Performed By: #### C BC #### [facility] [address] [place] [address] Dr. Diane Webber FREE THYROXINE INDEX T7on FTI 2.10 Normal 1.30-4.50 [facility] Comment on above: Performed By: #### B WATER/WASTEWATER ENGINEER, T7, TSH, CMP, LIPID #### [facility] [address] [place] [address] Dr. Diane Webber T3U 35.0 % Normal 33.0-40.0 [facility] Comment on above: Performed By: #### B WATER/WASTEWATER ENGINEER, T7, TSH, CMP, LIPID #### [facility] [address] [place] [address] [address] Diane Webber T4 [Mass/Vol] 6.00 ug/dL Normal 4.50-12.10 [facility] Comment on above: Performed By: #### B WATER/WASTEWATER ENGINEER, T7, TSH, CMP, LIPID #### [facility] [address] [place] [address] [address] Diane Webber GLYCOHEMOGLOBIN A1Con 2021 ADA RECOMMENDATION SEE BELOW Normal [facility] Comment on above: Result Comment: ADA RECOMMENDED LIMIT 4.0 - 6.0 ADA THERAPEUTIC TARGET < 7.0 ACTION SUGGESTED > 7.0 Performed By: #### A 1C ####[facility] [id number] [place] [address]Dr. Diane Webber Glucose [Mass/Vol] 114 mg/dL Normal [facility] Comment on above: Performed By: #### A 1C ####[facility] [id number] [place] [address]Dr. Diane Webber HbA1c (Bld) [Mass fraction] 5.6 % Normal 4.5-6.2 [facility] Comment on above: Performed By: #### A 1C ####[facility] [address] [place] [id number]. Diane Webber IRONon 08-17-2022 Iron [Mass/Vol] 151.0 ug/dL Normal 65.0-175.0 [facility] Comment on above: Performed By: #### P SASC, IRON, VITAD ####[facility] [address] [place] [id number]. Diane Webber LIPID PROFILEon 08-17-2022 CHOL-HDL RATIO NORM SEE BELOW Normal [facility] Comment on above: Result Comment: 3.3 - 4.4 LOW RISK 4.4 - 7.1 AVERAGE RISK 7.1 - 11.0 MODERATE RISK >11.0 HIGH RISK Performed By: #### B WATER/WASTEWATER ENGINEER, T7, TSH, CMP, LIPID #### [facility] [address] [place] [address] [address] Diane Webber Cholesterol [Mass/Vol] 221 mg/dL Critically high <=200 [facility] Comment on above: Performed By: #### B WATER/WASTEWATER ENGINEER, T7, TSH, CMP, LIPID #### [facility] [address] [place] [address] [address] Diane Webber Cholesterol in HDL [Mass/Vol] 68 mg/dL Critically high 40-60 [facility] Comment on above: Performed By: #### B WATER/WASTEWATER ENGINEER, T7, TSH, CMP, LIPID #### [facility] [address] [place] [address] [address] Diane Webber Cholesterol in LDL [Mass/Vol] 118.6 mg/dL Normal [facility] Comment on above: Performed By: #### B WATER/WASTEWATER ENGINEER, T7, TSH, CMP, LIPID #### [facility] [address] [place] [address] [address] Diane Webber Cholesterol.total/Ch olesterol in HDL [Mass ratio] 3.3 {ratio} Normal [facility] Comment on above: Performed By: #### B WATER/WASTEWATER ENGINEER, T7, TSH, CMP, LIPID #### [facility] [address] [place] [address] [address] Diane Webber HDL NORMAL > or = 60 mg/dl - LOW CARDIOVASCULAR RISK <40 mg/dl - HIGH CARDIOVASCULAR RISK Normal [facility] Comment on above: Performed By: #### B WATER/WASTEWATER ENGINEER, T7, TSH, CMP, LIPID #### [facility] [address] [place] [address] [address] Diane Webber LDL CALC NORMAL SEE BELOW Normal [facility] Comment on above: Result Comment: <100 mg/dl OPTIMAL 100 - 129 mg/dl NEAR OR ABOVE OPTIMAL 130 - 159 mg/dl BORDERLINE HIGH 160 - 189 mg/dl HIGH >190 mg/dl VERY HIGH Performed By: #### B WATER/WASTEWATER ENGINEER, T7, TSH, CMP, LIPID #### [facility] [address] [place] [address] [address] Diane Webber Triglyceride [Mass/Vol] 172 mg/dL Critically high <=150 [facility] Comment on above: Performed By: #### B WATER/WASTEWATER ENGINEER, T7, TSH, CMP, LIPID #### [facility] [address] [place] [address] [address] Diane Webber VLDL CALC 34.4 mg/dL Normal [facility] Comment on above: Performed By: #### B WATER/WASTEWATER ENGINEER, T7, TSH, CMP, LIPID #### [facility] [address] [place] [address] [address] Diane Webber PROF 14(COMP METB)on 022 Albumin [Mass/Vol] 3.7 g/dL Normal 3.4-5.0 [facility] Comment on above: Performed By: #### B WATER/WASTEWATER ENGINEER, T7, TSH, CMP, LIPID #### [facility] [address] [place] [address] Dr. Diane Webber Albumin/Globulin [Mass ratio] 0.9 {ratio} Normal [facility] Comment on above: Performed By: #### B WATER/WASTEWATER ENGINEER, T7, TSH, CMP, LIPID #### [facility] [address] [place] [address] Dr. Diane Webber ALP [Catalytic activity/Vol] 56 U/L Normal 46-116 [facility] Comment on above: Performed By: #### B WATER/WASTEWATER ENGINEER, T7, TSH, CMP, LIPID #### [facility] [address] [place] [address] Dr. Diane Webber ALT [Catalytic activity/Vol] 53 U/L Normal 16-63 [facility] Comment on above: Performed By: #### B WATER/WASTEWATER ENGINEER, T7, TSH, CMP, LIPID #### [facility] [address] [place] [address] Dr. Diane Webber Anion gap [Moles/Vol] 13.4 mmol/L Normal [facility] Comment on above: Performed By: #### B WATER/WASTEWATER ENGINEER, T7, TSH, CMP, LIPID #### [facility] [address] [place] [address] Dr. Diane Webber AST [Catalytic activity/Vol] 26 U/L Normal 15-37 [facility] Comment on above: Performed By: #### B WATER/WASTEWATER ENGINEER, T7, TSH, CMP, LIPID #### [facility] [address] [place] [address] Dr. Diane Webber Bilirubin [Mass/Vol] 0.5 mg/dL Normal 0.2-1.0 [facility] Comment on above: Performed By: #### B WATER/WASTEWATER ENGINEER, T7, TSH, CMP, LIPID #### [facility] [address] [place] [address] Dr. Diane Webber Calcium [Mass/Vol] 9.1 mg/dL Normal 8.5-10.1 [facility] Comment on above: Performed By: #### B WATER/WASTEWATER ENGINEER, T7, TSH, CMP, LIPID #### [facility] [facility] [address] [place] [address] Dr. Diane Webber Chloride [Moles/Vol] 102 mmol/L Normal 98-107 [facility] Comment on above: Performed By: #### B WATER/WASTEWATER ENGINEER, T7, TSH, CMP, LIPID #### [facility] [address] [place] [address] Dr. Diane Webber CO2 [Moles/Vol] 26.9 mmol/L Normal 21.0-32.0 [facility] Comment on above: Performed By: #### B WATER/WASTEWATER ENGINEER, T7, TSH, CMP, LIPID #### [facility] [address] [place] [address] Dr. Diane Webber Creatinine [Mass/Vol] 0.88 mg/dL Normal 0.70-1.30 [facility] Comment on above: Performed By: #### B WATER/WASTEWATER ENGINEER, T7, TSH, CMP, LIPID #### [facility] [address] [place] [address] Dr. Diane Webber EGFR-AF AUSTRALIAN >60 Normal >=60 [facility] Comment on above: Performed By: #### B WATER/WASTEWATER ENGINEER, T7, TSH, CMP, LIPID #### [facility] [address] [place] [address] Dr. Diane Webber EGFR-NON AF AUSTRALIAN >60 Normal >=60 [facility] Comment on above: Performed By: #### B WATER/WASTEWATER ENGINEER, T7, TSH, CMP, LIPID #### [facility] [address] [place] [address] Dr. Diane Webber Globulin (S) [Mass/Vol] 4.2 g/dL Normal [facility] Comment on above: Performed By: #### B WATER/WASTEWATER ENGINEER, T7, TSH, CMP, LIPID #### [facility] [address] [place] [address] Dr. Diane Webber Glucose [Mass/Vol] 103 mg/dL Normal 74-106 [facility] Comment on above: Performed By: #### B WATER/WASTEWATER ENGINEER, T7, TSH, CMP, LIPID #### [facility] [address] [address] [address] Diane Webber Potassium [Moles/Vol] 4.3 mmol/L Normal 3.5-5.1 [facility] Comment on above: Performed By: #### B WATER/WASTEWATER ENGINEER, T7, TSH, CMP, LIPID #### [facility] [address] [place] [address] Dr. Diane Webber Protein [Mass/Vol] 7.9 g/dL Normal 6.4-8.2 [facility] Comment on above: Performed By: #### B WATER/WASTEWATER ENGINEER, T7, TSH, CMP, LIPID #### [facility] [address] [place] [address] Dr. Diane Webber Sodium [Moles/Vol] 138 mmol/L Normal 136-145 [facility] Comment on above: Performed By: #### B WATER/WASTEWATER ENGINEER, T7, TSH, CMP, LIPID #### [facility] [address] [place] [address] Dr. Diane Webber Urea nitrogen [Mass/Vol] 8.0 mg/dL Normal 7.0-18.0 [facility] Comment on above: Performed By: #### B WATER/WASTEWATER ENGINEER, T7, TSH, CMP, LIPID #### [facility] [address] [address] [address] Diane Webber Urea nitrogen/Creatinine [Mass ratio] 9.1 mg/mg Normal [facility] Comment on above: Performed By: #### B WATER/WASTEWATER ENGINEER, T7, TSH, CMP, LIPID #### [facility] [address] [place] [address] Dr. Diane Webber TSHon 08-17-2022 TSH 1.506 uIU/mL Normal 0.358-3.740 [facility] Comment on above: Performed By: #### B WATER/WASTEWATER ENGINEER, T7, TSH, CMP, LIPID #### [facility] [address] [place] [address] Dr. Diane Webber VITAMIN D 25 OHon 08-17-2022 VIT D 25-OH 23.0 ng/mL Normal [facility] Comment on above: Performed By: #### P SASC, IRON, VITAD ####[facility] [id number] [place], [place] [address]Ww. Diane Webber VIT D RANGES SEE BELOW Normal [facility] Comment on above: Result Comment: <20 ng/mL Vit D deficient 20 - <30 ng/mL Vit D insufficient 30 - 100 ng/mL Vit D sufficient >100 ng/mL Potential Toxicity Performed By: #### P SASC, IRON, VITAD ####[facility] [id number] [place], [place] [address]Gj. Diane Webber Vital Signs Date Time Vital Sign Value Performing Clinician Facility 08-19-2024 15:44-0500 Diastolic blood pressure 102 mm[Hg] Bar LEEL [facility] [place] 08-19-2024 15:44-0500 Mean blood pressure 115 mm[Hg] Bar NILL [facility] [place] 08-19-2024 15:44-0500 Systolic blood pressure 142 mm[Hg] Bar NILL [facility] [place] 08-19-2024 15:21-0500 Blood Pressure Location Bar NILL [facility] [place] 08-19-2024 15:21-0500 Diastolic blood pressure 108 mm[Hg] Bar NILL [facility] [place] 08-19-2024 15:21-0500 Heart rate 76 /min Bar NILL [facility] [place] 08-19-2024 15:21-0500 Respiratory rate 16 /min Bar NILL [facility] [place] 08-19-2024 15:21-0500 Systolic blood pressure 154 mm[Hg] Bar NILL [facility] [place] 09-07-2023 14:15-0500 Body height 180.34 cm Anne Bhatia Other [facility] Other 09-07-2023 14:15-0500 Body mass index (BMI) [Ratio] 37.74 kg/m2 Anne Whatleymond Other [facility] Other 09-07-2023 14:15-0500 Body temperature 99.1 [degF] Anne Jannette Other [facility] Other 09-07-2023 14:15-0500 Body weight 122.74 kg Anne Whatleymond Other [facility] Other 09-07-2023 14:15-0500 Respiratory rate 20 /min Anne Bhatia Other [facility] Other 09-07-2023 14:15-0500 SaO2% (BldA) [Mass fraction] 98 % Anne Bhatia Other [facility] Other 12-07-2022 13:50-0400 Body height 180.34 cm Anne Whatleymond Other [facility] Other 12-07-2022 13:50-0400 Body mass index (BMI) [Ratio] 35.92 kg/m2 Anne Jannette Other [facility] Other 12-07-2022 13:50-0400 Body temperature 97.9 [degF] Anne Jannette Other [facility] Other 12-07-2022 13:50-0400 Body weight 116.85 kg Anne Jannette Other [facility] Other 12-07-2022 13:50-0400 Diastolic blood pressure 117 mm[Hg] Anne Whatleymond Other [facility] Other 12-07-2022 13:50-0400 Respiratory rate 18 /min Anne Jannette Other [facility] Other 12-07-2022 13:50-0400 SaO2% (BldA) [Mass fraction] 97 % Anne Whatleymond Other [facility] Other 12-07-2022 13:50-0400 Systolic blood pressure 152 mm[Hg] Anne Jannette Other [facility] Other Encounters Encounter Date Encounter Type Care Provider Facility Start: 08-31-2024 End: 08-31-2024 ambulatory [facility] Start: 08-19-2024 End: 08-19-2024 ambulatory Bar ARRINGTON Facility:MARIAN Soriano Start: 08-19-2024 End: 08-19-2024 Patient encounter procedure Bar ARRINGTON [facility] [place] Start: 08-03-2024 ambulatory Bar ARRINGTON Facility:Shilo Soriano Start: 09-07-2023 End: 09-07-2023 ambulatory Anne Bhatia Other [facility] Other Start: 09-07-2023 Office outpatient vi sit 15 minutes Anne Bhatia [facility] Start: 01-30-2023 End: 01-30-[address] JENN MASON . Facility:[facility] Start: 01-18-2023 End: 01-19-2023 ambulatory HORACIO WILSON . Facility:[facility] Start: 12-07-2022 End: 12-07-2022 ambulatory Anne Bhatia Other [facility] Other Start: 12-07-2022 Office outpatient vi sit 15 minutes Anne Bhatia [facility] Start: 10-03-2022 End: 10-04-[address] ARABELLA HILL . Facility:[facility] Start: 10-02-2022 End: 10-03-[address] JAM ENGEL Facility:[facility] Start: 09-17-2022 End: 09-18-[address] ARABELLA HILL . Facility:[facility] Start: 08-30-2022 End: 08-31-[address] ARABELLA HILL . Facility:[facility] Start: 08-17-2022 End: 08-18-[address] ARABELLA HILL . Facility:[facility] Procedures Date Procedure Procedure Detail Performing Clinician Start: 08-17-[address] JENN HANSEN . Comment on above: Performed By: #### P SASC, IRON, VITAD ####[facility] [id number] [address]Dr. Diane Webber Decompression of med edward nerve Bar NILL Excision of lesion of lip Mi maribel LEELaurita FESS - Functional endoscopic sinus surgery - posterior ethmoidectomy Bar NILL Repair of right ingu inal hernia Bar NILL Right hydrocelectomy Bar NILL Payers Date Payer Category Payer Unknown [id number] 1970 Unknown [id number] 2.16.84 [id number] 1971 Unknown [id number] 2.16.84 [id number] 1971 Unknown [id number] 2.16.84 [id number] 1971 Unknown [id number] 2.16.84 [id number] 1971 Unknown [id number] 2.16.84 [id number] 1971 Unknown [id number] 2.16.84 [id number] 1971 Unknown [id number] 2.16.84 [id number] 1971 Unknown [id number] 2.16.8 [id number] 1971 Unknown [id number] 2.16.8 [id number] 1959 Unknown [id number] 1959 Unknown [id number] [facility] [id number] Social History Date Type Detail Facility Unknown if ever smoked [facility] Other Sex Assigned At [facility] Start: 08-19-2024 Tobacco smoking status Heavy t obacco smoker (finding) [facility] Comment on above: Pt quit smoking in J formerly [facility] 2009 Tobacco smoking status Never [facility] Comment on above: Pt quit smoking in formerly [facility] 2009 Functional Status Date Assessment Result Facility 08-19-2024 Functional Status N/A [facility] [place] [facility] [place] Clinical Note 08-19-2024 Note Date & Type Note Facility 08-19-2024 Note General Surgery Offi ce/Clinic Note Chief Complaint consultation for positive occult stool HPI Staff 54 year old male presents on consultation from Dr. Hill for positive occult stool. History of Present Illness 54 yo male with h/o htn, COPD, hyperlipidemia, SE, psoriatic arthritis, referred for positive fecal occult blood test; patient denies change in bms or blood in stools, no abd complaints; abd operations significant for RIHR, no previous colonoscopy; on baby asa daily, no NSAID use; no tobacco use. Review of Systems PHQ Score Initial Depression Screen Score: 0 SCORE ROS - Provider Constitutional: no fever, no sweats, no weight loss. Eyes: no glasses, no blurred vision, no visual loss. ENMT: no dentures, no hoarseness, no swallowing difficulties, no hearing loss, no ear infection(s), no nose bleeds. Cardiovascular: normal blood pressure, no chest pain, regular heartbeat, no heart murmur. Respiratory: no shortness of breath, no cough, no asthma, no wheezing. Gastrointestinal: no nausea, no vomiting, no diarrhea, no constipation, no blood in stool, no change in bowel habits, no abdominal pain, no hepatitis. Genitourinary: no kidney stones, no urine infection, no dysuria. Musculoskeletal: no pain, no weakness. Skin: no changing moles, no rash, no skin lumps. Neurologic: no seizures, no epilepsy, no headache. Psychiatric: no emotional or psychiatric problem. Heme/Lymph: no bleeding problems, no anemia, no blood clots, no transfusions. Allergy/Immunologic: no swollen lymph nodes/glands, no IV drug abuse. Other: Additional ROS info: Except as noted in the above Review of Systems and in the History of Present Illness, all other systems have been reviewed and are negative or noncontributory. Physical Exam Vitals & Measurements HR: 76(Peripheral) RR: 16 BP: 142/102 HT: 71 in HT: 180.34 cm WT: 121.6 kg WT: 268.082 lb BMI: 37.39 Assessment/Plan 1. Positive fecal occult blood test (R19.5: Other fecal abnormalities) plan colonoscopy under anesthesia, informed consent obtained. Follow-up No qualifying data available Problem List/Past Medical History Ongoing Alcoholism Anxiety BMI 37.0-37.9, adult Chronic obstructive pulmonary disease Class 3 obesity Essential hypertension Hypertriglyceridemia Obstructive sleep apnea Positive fecal occult blood test Positive occult stool blood test Psoriasis Psoriatic arthritis Historical Carpal tunnel syndrome Depression HTN - Hypertension Procedure/Surgical History Carpal tunnel release, Excision of lesion of lip, FESS - Functional endoscopic sinus surgery - posterior ethmoidectomy, Repair of right inguinal hernia, Right hydrocelectomy. Medications amLODIPine 5 mg Tab, 5 mg= 1 tab(s), Oral, Daily aspirin 325 mg Oral EC Tab, 325 mg= 1 tab(s), Oral, Daily irbesartan 300 mg Tab, 300 mg= 1 tab(s), Oral, Daily Metoprolol tartrate 50 mg Tab, 50 mg= 1 tab(s), Oral, BID nitroglycerin 0.4 mg sublingual Tab, 0.4 mg= 1 tab(s), SubLingual, q5min, PRN Allergies sulfa drugs (Redness of skin of face) Social History Alcohol - Denies Alcohol Use, 04/17/2010 Current. Beer. 3-5 times per week., 08/19/2024 Substance Abuse - Denies Substance Abuse, 04/17/2010 Never., 08/19/2024 Tobacco - Denies Tobacco Use, 04/17/2010 10 or more cigarettes (1/2 pack or more)/day in last 30 days Tobacco Use:. Never Smokeless Tobacco Use:. Cigarettes, 0.75 per day. Started age 20.0 Years. Yes, 08/19/2024 Family History COPD: Father. Diabetes mellitus type 2: Mother. Heart disease: Mother. Hypertension: Mother. Primary malignant neoplasm of lung: Father. [facility] Comment on above: Result Comment: Elec tronically Signed By: NURY SNOW, Bar Case\Date and Time Signed: 08/19/24 15:54 EST Evaluation note 09-07-2023 Note Date & Type [...] days Sep, Thrush, oral (ICD-10 - B37.0) [facility] Other Evaluation note 12-07-2022 Note Date & [...] Dec, Cough, unspecified type (ICD-10 - R05.9) [facility] Other Clinical Note 10-03-2022 Note Date & [...] and relayed in a separate dictation. [facility] Evaluation + Plan note Note Date & Type Note Facility Evaluation + Plan note No data available for this section [facility] [place] History general Narrative - Reported Note Date & Type Note Facility History general Narrative - Reported Type Medical History HTN (hypertension) Medical History Psoriasis Surgical History hernia repair Surgical History hydrocele repair [facility] Other History general Narrative - Reported Note Date & Type Note Facility History general Narrative - Reported Type Medical History HTN (hypertension) Medical History Psoriasis Surgical History hernia repair Surgical History hydrocele repair Hospitalization History SEE ABOVE [facility] Other Hospital Discharge instructions Note Date & Type Note Facility Hospital Discharge instructions No data available for this section [facility] [place] Progress note Note Date & Type Note Facility Progress note No data available for this section [facility] [place] Summary Purpose Family History No Family History Records FoundNo Family History Records Found No data available for this section No Family History Records Found Advance Directives No Advanced Directives Records FoundNo Advanced Directives Records FoundNo Advanced Directives Records Found Additional Source Comments REASON FOR VISIT (unrecogniz ed section and content) UPPER RESPIRATORY ISSUESPOSS THRUSH, CHEST CONGESTION (unrecognized sect ion and content) No Status Records FoundNo Status Records FoundNo Status Records Found INFORMATION SOURCE (unrecogn ized section and content) DATE CREATED AUTHOR 02/08/2023 [facility] DATE CREATED AUTHOR AUTHOR'S ORGANIZ ATION 08/20/2024 [facility] DATE CREATED AUTHOR AUTHOR'S ORGANIZ ATION 09/01/2024 [facility] Patient Care team informatio n (unrecognized section and content) Personnel Name: Arabella Hill MD Address: Address: [address] [place] [address] FOR RECORDS PERTAINING TO PATIENTS WHO ARE [...] BE BASED ON THE PRIMARY CLINICAL RECORDS. [employer] provides no warranty or guarantee of the accuracy or completeness of information in this document.
== END 2024-09-03 14:25 | disposition home or self-care (01) ==
LOC: PST 14:24
PROVIDERS: PCP Family Medicine; Visit Provider Surgery
DX: R19.5 Other fecal abnormalities (principal)

== ENCOUNTER 2024-09-23 07:09 | Outpatient (OUT) | payer BC, SELFPAY ==
--- NOTE | 2024-09-23 07:00 | CA_ITS ---
Patient Name: ISIAH VENEGAS MR#: [id number] : 1970 Exam Date: 09/23/2024 Ordering Doctor: DR. LEYDI PONCE M.D. ECHOCARDIOGRAM REPORT PROCEDURE: CA ECHO DOPPLER COMPLETE INDICATIONS: Dyspnea on exertion, smoker, hypertension COMPARISON: None. DESCRIPTION: COMPLETE ECHOCARDIOGRAM Real-time transthoracic echocardiography with 2D, M-mode, spectral and color flow Doppler performed. QUALITY: Technical quality was good. LEFT VENTRICLE: Normal chamber size. Left ventricular wall thickness is mildly increased. LV EF: Global left ventricular systolic function is difficult to assess but appears preserved; visually estimated ejection fraction is 55%. Unable to assess regional wall motion abnormalities. DIASTOLIC: Unable to assess diastolic function. ATRIAL SEPTUM: Visually appears intact. LEFT ATRIUM: Normal chamber size. RIGHT ATRIUM: Mild dilatation. RIGHT VENTRICLE: Normal chamber size. Normal right ventricular systolic function. TRICUSPID VALVE: Normal mobility and thickness. No stenosis with no regurgitation. Unable to estimate right-sided pressures due to lack of measurable tricuspid regurgitation. MITRAL VALVE: Normal mobility and thickness. No evidence of mitral valve stenosis. There is no mitral annular calcification. No mitral regurgitation. AORTIC VALVE: Normal trileaflet appearance. Mildly calcified aortic valve. Normal leaflet mobility. No evidence of aortic valve stenosis. No aortic regurgitation. AORTIC ROOT: Normal diameter and appearance. PULMONIC VALVE: Normal thickness and mobility. No stenosis. No regurgitation. PERICARDIUM: Anterior free space; trivial effusion versus fat pad. IVC: IVC is dilated (2.2 cm), does not fully collapse. CONCLUSION: 1. Global left ventricular systolic function is difficult to assess but appears preserved; visually estimated ejection fraction is 55% 2. Normal right ventricular size and systolic function 3. Mildly increased left ventricular wall thickness 4. The left atrium is normal in size 5. No significant valvular abnormalities 6. Anterior free space; trivial effusion versus fat pad Adult Echocardiography Procedure Report Left Ventricle LVEDD (3.7 - 5.6 cm): 5.47 cm LVESD (2.2 - 4.0 cm): 4.57 cm LVIVS thickness (0.6 - 1.2 cm): 1.09 cm LVPW thickness (0.5 - 1.0 cm): 1.10 cm e': 0.08 m/s E - e': 11.09 LVOT Max Gradient: 6.39 mm[Hg] LVOT Area (cm2): 1.26 m/s Peak Velocity (LVOT): 1.26 m/s Mean Velocity (LVOT): 0.85 m/s LVOT Diameter 2.10 cm Left Atrium LA Volume Index (2D A2C): 26.45 ml/m2 Left Atrium Systolic Dimension: 3.35 cm Mitral Valve MV E to A Ratio: 0.92 Mitral Valve A-Wave Peak Velocity: 1.00 m/s Mitral Valve E-Wave Peak Velocity: 0.92 m/s Right Ventricle Aorta AO Root Diam: 3.42 cm Aortic Valve AoV Area (Peak Hollis): 2.55 cm2, 2.55 cm2 AoV Area (VTI): 2.61 cm2, 2.61 cm2 Peak Velocity(Antegrade Flow): 1.71 m/s Peak Gradient(Antegrade Flow): 11.68 mm[Hg] Mean Velocity(Antegrade Flow): 1.11 m/s Mean Gradient(Antegrade Flow): 5.75 mm[Hg] Velocity Time Integral: 29.66 cm Tricuspid Valve Pulmonic Valve Mean Gradient: 1.84 mm[Hg] Mean Velocity: 0.62 m/s Peak Velocity: 0.97 m/s, 0.92 m/s Peak Gradient: 3.37 mm[Hg], 3.75 mm[Hg] Right Atrium Right Atrium Systolic Pressure: 69.55 ml, 69.55 ml Dictated by: Cindy Tomas M.D. on 09/23/2024 at 13:18 Approved by: Cindy Tomas M.D. on 09/23/2024 at 13:22
--- OUTSIDE RECORDS SUMMARY | 2024-09-23 07:10 | XMS_ITS | CCD ---
Author Organization [facility] CliniSymt Care Team Providers Care Customer Support Specialist Name Role Phone Anne Bhatia Unavailable DR [...] SAMSA ., HORACIO Attending Unavailable SAMSA ., HROACIO Admitting Unavailable ZIEBER, DR JAM Coulter Consulting Unavailable HOY ., DR BELL Primary Care Unavailable SAMSA ., HORACIO Consulting Unavailable HOY ., DR BELL Primary Care Unavailable ALGHOTHANI, MOHAMAD Admitting Unavailable ALGHOTHANI, MOHAMAD Attending Unavailable ALGHOTHANI, MOHAMAD Consulting Unavailable ZIEBER, DR JAM Coulter Consulting Unavailable ALGHOTHANI, MOHAMAD Admitting Unavailable HOY ., DR BELL Primary Care Unavailable ALGHOMOSESANI, MOHCHUN Attending Unavailable ALGHOSOLEDAD, MOHAMAD Consulting Unavailable HOY ., DR BELL Admitting Unavailable HOY ., DR BELL Attending Unavailable HOY ., DR BELL Consulting Unavailable HOY ., DR BELL Primary Care Unavailable Bar ARRINGTON Attending Unavailable Arabella Hill Referring Unavailable Arabella Hill Primary Care Physician LEYDI PONCE Attending Unavailable Allergies Allergy Classification Reported Allergen(s) Allergy Type Date of Onset Reaction(s) Facility (2 sources) Sulfamethoxazole / Trimethoprim Drug Allergy hair loss [facility] Other (1 source) bee venom Drug allergy (disorder) 01-07-20 14 [facility] Repository (1 source) Sulfonamides (Antibiotic) Drug allergy (disorder) 09-20-19 17 [facility] Repository (2 sources) Sulfonamides (Antibiotic); Translations: [sulfa drugs] Propensity to adverse reactions (disorder) Redness of skin of face [facility] Repository (1 source) Sulfonamides (Antibiotic); Translations: [SULFA (SULFONAMIDE ANTIBIOTICS)] Propensity to adverse reactions to drug (disorder) 09-21-19 [facility] Repository Medications Current Medications Medication Drug Class(es) Dates Sig (Normalized) Sig (Original) 0.8 ml adalimumab 50 mg/ml auto-injector (1 source) Tumor Necrosis Factor Luis Antonio Humira Pen 40 MG/0.8ML as directed Subcutaneous Active [id number] actuat albuterol 0.09 mg/actuat metered dose [...] Active Start: 12-07-2022 take 1 capsule by [facility] every eight hours Benzonatate 200 MG [...] 0 Start Date: 08/06/24 Status: Ordered nystatin [id number] unt/ml oral suspension (2 sources) Polyene Antifungal Start: 09-07-2023 Nystatin [id number] UNIT/ML 5 ml swish and swallow tid for 7 days Sep, Active Start: 12-07-2022 take 5 mL by mouth t hree times daily Nystatin [id number] UNIT/ML 5 ml Orally 3 times a [...] Test Name Value Interpretation Reference Range Facility Letter (Out)on 09-09-2024 Letter (Out) [id number] Rhett Venegas 1970 M Date Provider Department Center 09/09/2024 None-None [facility] [place] [facility] Family History Problem Relation Age of Onset Coronary artery disease Mother Other Mother Family Status - Relation Status Age at Mother Normal [facility] Office Visiton 08-31-2024 Follow-up visit [id number] TannerRhett Maldonado 1970 M Date Provider Department Center 08/31/2024 [id number] RAEANNRANDALL JASON Christie Zulema Family History Problem Relation Age of Onset Coronary artery disease Mother Other Mother Family Status - Relation Status Age at Mother Level of Service:13197 [place] OFFICE/OUTPATIENT ESTABLISHED HIGH MDM 40 MIN Reason for Visit and Comments: Chest Pain [732583] - Had stress test 2 weeks ago. Chest pain occurs usually with activity. Hypertension [260947] - Had routine labs w/ lipid panel in Jul 2024. Dr. Hill started him on amlodipine since last visit. Says BP has been running high lately. Shortness of Breath [] - On exertion Palpitations [] - Some , he's only been taking metoprolol tartrate once daily, instead of twice Dizziness [831099] Fatigue [46] Normal [facility] Ambulatory Visit Summaryon 1 10-20-2023 Ambulatory Visit Summary Ambulatory Visit Summary MIRIAMRHETT MAXWELL Erica :1970 Visit Date:08/19/2024 Ambulatory Visit Instructions Your Diagnosis Positive fecal occult blood test Your Care Team Attending Physician - Bar ARRINGTON MD Primary Care Physician - Arabella Hill MD Referring Physician - Arabella Hill MD This [...] for choosing us for your care. Normal [facility] COVID + FLU Quick Testingon 09-07-2023 SARS-CoV-2 (COVID-19) RNA MARCI+probe Ql (Unsp spec) Positive [facility] Other COVID + FLU Quick Testing Negative [facility] Other CT LUNG CANCER SCREENINGon 0 01-18-2023 [...] on above: Performed By: #### H GB ####[facility] [id number] [place], [place] [address]Jw. Diane Webber QUICK STREPon 12-07-2022 S. pyogenes Ag Ql (Unsp spec) Negative [facility] Other NM STRESS/REST MULTIon 10-02 NM STRESS/REST MULTI Patient: RHETT VENEGAS Exam Date: 10/02/2022 : 1970 Gender:M Ordering : JARED ELMORE Admission #: [id number] Family : Order #: [id number] CLICK HERE TO VIEW EXAM RADIOLOGY REPORT [...] DEFECT: LOCATION: Basal inferior. Mid-inferior. Apical inferior. Central. SIZE: Medium (3-4 segments). SEVERITY: Moderate. TYPE: [...] 10/03/2022 at 12:05 Normal [facility] ECHOCARDIO M/2D COMPLETEon 1 ECHOCARDIO M/2D COMPLETE Patient: RHETT VENEGAS Exam Date: 08/30/2022 : 1970 Gender:M Ordering : DR ARABELLA HILL . Admission #: [id number] Family : Order #: [id number] CLICK HERE TO VIEW EXAM ECHOCARDIOGRAM REPORT [...] M.D. on 09/04/2022 at 10:31 Normal [facility] INSULINon 08-18-2022 Insulin 10.2 uIU/mL Normal 2.6-24.9 [facility] Comment on above: Performed By: #### I NSULIN ####[facility] [id number] [place] [address]Dr. Diane Webber BNPon 08-17-2022 Natriuretic peptide B (Bld) [Mass/Vol] 57.0 pg/mL Normal <=900.0 [facility] Comment on above: Performed By: #### B HOSPICE CLINICAL MARKETER, T7, TSH, CMP, LIPID #### [facility] [address] [place] [address] Dr. Diane Webber CBC AUTO DIFFon 08-17-2022 BASO # 0.1 103/ul Normal 0.0-0.1 [facility] Comment on above: Performed By: #### C BC #### [facility] [address] [place] [address] Dr. Diane Webber Basophils/100 WBC (Bld) 1.0 % Normal 0.2-2.0 [facility] Comment on above: Performed By: #### C BC #### [facility] [address] [place] [address] Dr. Diane Webber EO # 0.1 103/ul Normal 0.0-0.7 [facility] Comment on above: Performed By: #### C BC #### [facility] [address] [place] [address] Dr. Diane Webber Eosinophils/100 WBC (Bld) 1.7 % Normal 0.9-7.0 [facility] Comment on above: Performed By: #### C BC #### [facility] [address] [place] [address] Dr. Diane Webber Erythrocyte distribution width (RBC) [Ratio] 12.4 % Normal 11.0-15.0 [facility] Comment on above: Performed By: #### C BC #### [facility] [address] [place] [address] Dr. Diane Webber Hematocrit (Bld) [Volume fraction] 45.3 % Normal 42.0-54.0 [facility] Comment on above: Performed By: #### C BC #### [facility] [address] [place] [address] Dr. Diane Webber Hemoglobin (Bld) [Mass/Vol] 15.5 g/dL Normal 14.0-18.0 [facility] Comment on above: Performed By: #### C BC #### [facility] [address] [place] [address] Dr. Diane Webber IG # 0.03 10e3/ul Normal 0.00-0.03 [facility] Comment on above: Performed By: #### C BC #### [facility] [address] [place] [address] Dr. Diane Webber IG % 0.4 % Normal 0.0-0.5 [facility] Comment on above: Performed By: #### C BC #### [facility] [address] [place] [address] Dr. Diane Webber LYMPH # 2.5 103/ul Normal 1.2-3.8 [facility] Comment on above: Performed By: #### C BC #### [facility] [address] [place] [address] Dr. Diane Webber Lymphocytes/100 WBC (Bld) 36.0 % Normal 20.5-60.0 [facility] Comment on above: Performed By: #### C BC #### [facility] [address] [place] [address] Dr. Diane Webber MANUAL DIFF REQ NO Normal [facility] Comment on above: Performed By: #### C BC #### [facility] [address] [place] [address] Dr. Diane Webber MCH (RBC) [Entitic mass] 33.3 pg Normal 25.9-34.0 [facility] Comment on above: Performed By: #### C BC #### [facility] [address] [address] [address] Diane Webber MCHC (RBC) [Mass/Vol] 34.2 g/dL Normal 29.9-35.2 [facility] Comment on above: Performed By: #### C BC #### [facility] [address] [address] [address] Diane Webber MCV (RBC) [Entitic vol] 97.2 fL Critically high 80.0-94.0 [facility] Comment on above: Performed By: #### C BC #### [facility] [address] [place] [address] Dr. Diane Webber MONO # 0.8 103/ul Normal 0.3-0.8 [facility] Comment on above: Performed By: #### C BC #### [facility] [address] [place] [address] Dr. Diane Webber Monocytes/100 WBC (Bld) 10.9 % Normal 1.7-12.0 [facility] Comment on above: Performed By: #### C BC #### [facility] [address] [place] [address] Dr. Diane Webber NEUT # 3.5 103/ul Normal 1.4-6.5 [facility] Comment on above: Performed By: #### C BC #### [facility] [address] [place] [address] Dr. Diane Webber Neutrophils/100 WBC (Bld) 50.0 % Normal 43.0-75.0 [facility] Comment on above: Performed By: #### C BC #### [facility] [address] [address] [address] Diane Webber Platelet mean volume (Bld) [Entitic vol] 9.5 fL Normal 9.5-13.5 [facility] Comment on above: Performed By: #### C BC #### [facility] [address] [address] [address] Diane Webber PLT 220 103/ul Normal 150-450 [facility] Comment on above: Performed By: #### C BC #### [facility] [address] [address] [address] Diane Webber RBC 4.66 106/ul Critically low 4.70-6.10 [facility] Comment on above: Performed By: #### C BC #### [facility] [address] [address] [address] Diane Webber WBC 7.1 103/ul Normal 4.0-11.0 [facility] Comment on above: Performed By: #### C BC #### [facility] [address] [address] [address] Diane Webber FREE THYROXINE INDEX T7on FTI 2.10 Normal 1.30-4.50 [facility] Comment on above: Performed By: #### B HOSPICE CLINICAL MARKETER, T7, TSH, CMP, LIPID #### [facility] [address] [address] [address] Diane Webber T3U 35.0 % Normal 33.0-40.0 [facility] Comment on above: Performed By: #### B HOSPICE CLINICAL MARKETER, T7, TSH, CMP, LIPID #### [facility] [address] [address] [address] Diane Webber T4 [Mass/Vol] 6.00 ug/dL Normal 4.50-12.10 [facility] Comment on above: Performed By: #### B HOSPICE CLINICAL MARKETER, T7, TSH, CMP, LIPID #### [facility] [address] [address] [address] Diane Webber GLYCOHEMOGLOBIN A1Con 2021 ADA RECOMMENDATION SEE BELOW Normal [facility] Comment on above: Result Comment: ADA RECOMMENDED LIMIT 4.0 - 6.0 ADA THERAPEUTIC TARGET < 7.0 ACTION SUGGESTED > 7.0 Performed By: #### A 1C ####[facility] [address] [place] [address]Dr. Diane Webber Glucose [Mass/Vol] 114 mg/dL Normal [facility] Comment on above: Performed By: #### A 1C ####[facility] [address] [place] [address]DrJeremias Webber HbA1c (Bld) [Mass fraction] 5.6 % Normal 4.5-6.2 [facility] Comment on above: Performed By: #### A 1C ####[facility] [id number] [place], [place] [address]XqDr. Diane Webber IRONon 08-17-2022 Iron [Mass/Vol] 151.0 ug/dL Normal 65.0-175.0 [facility] Comment on above: Performed By: #### P SASC, IRON, VITAD ####[facility] [id number] [place] [id number] Webber LIPID PROFILEon 08-17-2022 CHOL-HDL RATIO NORM SEE BELOW Normal [facility] Comment on above: Result Comment: 3.3 - 4.4 LOW RISK 4.4 - 7.1 AVERAGE RISK 7.1 - 11.0 MODERATE RISK >11.0 HIGH RISK Performed By: #### B HOSPICE CLINICAL MARKETER, T7, TSH, CMP, LIPID #### [facility] [address] [address] [address] Diane Webber Cholesterol [Mass/Vol] 221 mg/dL Critically high <=200 [facility] Comment on above: Performed By: #### B HOSPICE CLINICAL MARKETER, T7, TSH, CMP, LIPID #### [facility] [address] [address] [address] Diane Webber Cholesterol in HDL [Mass/Vol] 68 mg/dL Critically high 40-60 [facility] Comment on above: Performed By: #### B HOSPICE CLINICAL MARKETER, T7, TSH, CMP, LIPID #### [facility] [address] [address] [address] Diane Webber Cholesterol in LDL [Mass/Vol] 118.6 mg/dL Normal [facility] Comment on above: Performed By: #### B HOSPICE CLINICAL MARKETER, T7, TSH, CMP, LIPID #### [facility] [address] [address] [address] Diane Webber Cholesterol.total/Ch olesterol in HDL [Mass ratio] 3.3 {ratio} Normal [facility] Comment on above: Performed By: #### B HOSPICE CLINICAL MARKETER, T7, TSH, CMP, LIPID #### [facility] [address] [address] [address] Diane Webber HDL NORMAL > or = 60 mg/dl - LOW CARDIOVASCULAR RISK <40 mg/dl - HIGH CARDIOVASCULAR RISK Normal [facility] Comment on above: Performed By: #### B HOSPICE CLINICAL MARKETER, T7, TSH, CMP, LIPID #### [facility] [address] [address] [address] Diane Webber LDL CALC NORMAL SEE BELOW Normal [facility] Comment on above: Result Comment: <100 mg/dl OPTIMAL 100 - 129 mg/dl NEAR OR ABOVE OPTIMAL 130 - 159 mg/dl BORDERLINE HIGH 160 - 189 mg/dl HIGH >190 mg/dl VERY HIGH Performed By: #### B HOSPICE CLINICAL MARKETER, T7, TSH, CMP, LIPID #### [facility] [address] [address] [address] Diane Webber Triglyceride [Mass/Vol] 172 mg/dL Critically high <=150 [facility] Comment on above: Performed By: #### B HOSPICE CLINICAL MARKETER, T7, TSH, CMP, LIPID #### [facility] [address] [address] [address] Diane Webber VLDL CALC 34.4 mg/dL Normal [facility] Comment on above: Performed By: #### B HOSPICE CLINICAL MARKETER, T7, TSH, CMP, LIPID #### [facility] [address] [address] [address] Diane Webber PROF 14(COMP METB)on 022 Albumin [Mass/Vol] 3.7 g/dL Normal 3.4-5.0 [facility] Comment on above: Performed By: #### B HOSPICE CLINICAL MARKETER, T7, TSH, CMP, LIPID #### [facility] [address] [address] [address] Diane Webber Albumin/Globulin [Mass ratio] 0.9 {ratio} Normal [facility] Comment on above: Performed By: #### B HOSPICE CLINICAL MARKETER, T7, TSH, CMP, LIPID #### [facility] [address] [address] [address] Diane Webber ALP [Catalytic activity/Vol] 56 U/L Normal 46-116 [facility] Comment on above: Performed By: #### B HOSPICE CLINICAL MARKETER, T7, TSH, CMP, LIPID #### [facility] [address] [address] [address] Diane Webber ALT [Catalytic activity/Vol] 53 U/L Normal 16-63 [facility] Comment on above: Performed By: #### B HOSPICE CLINICAL MARKETER, T7, TSH, CMP, LIPID #### [facility] [address] [place] [address] Dr. Diane Webber Anion gap [Moles/Vol] 13.4 mmol/L Normal [facility] Comment on above: Performed By: #### B HOSPICE CLINICAL MARKETER, T7, TSH, CMP, LIPID #### [facility] [address] [place] [address] Dr. Diane Webber AST [Catalytic activity/Vol] 26 U/L Normal 15-37 [facility] Comment on above: Performed By: #### B HOSPICE CLINICAL MARKETER, T7, TSH, CMP, LIPID #### [facility] [address] [place] [address] Dr. Diane Webber Bilirubin [Mass/Vol] 0.5 mg/dL Normal 0.2-1.0 [facility] Comment on above: Performed By: #### B HOSPICE CLINICAL MARKETER, T7, TSH, CMP, LIPID #### [facility] [address] [place] [address] Dr. Diane Webber Calcium [Mass/Vol] 9.1 mg/dL Normal 8.5-10.1 [facility] Comment on above: Performed By: #### B HOSPICE CLINICAL MARKETER, T7, TSH, CMP, LIPID #### [facility] [address] [place] [address] Dr. Diane Webber Chloride [Moles/Vol] 102 mmol/L Normal 98-107 [facility] Comment on above: Performed By: #### B HOSPICE CLINICAL MARKETER, T7, TSH, CMP, LIPID #### [facility] [address] [place] [address] Dr. Diane Webber CO2 [Moles/Vol] 26.9 mmol/L Normal 21.0-32.0 [facility] Comment on above: Performed By: #### B HOSPICE CLINICAL MARKETER, T7, TSH, CMP, LIPID #### [facility] [address] [address] [address] Diane Webber Creatinine [Mass/Vol] 0.88 mg/dL Normal 0.70-1.30 [facility] Comment on above: Performed By: #### B HOSPICE CLINICAL MARKETER, T7, TSH, CMP, LIPID #### [facility] [address] [address] [address] Diane Webber EGFR-AF KAZAKH >60 Normal >=60 [facility] Comment on above: Performed By: #### B HOSPICE CLINICAL MARKETER, T7, TSH, CMP, LIPID #### [facility] [address] [place] [address] Dr. Diane Webber EGFR-NON AF KAZAKH >60 Normal >=60 [facility] Comment on above: Performed By: #### B HOSPICE CLINICAL MARKETER, T7, TSH, CMP, LIPID #### [facility] [address] [place] [address] Dr. Diane Webber Globulin (S) [Mass/Vol] 4.2 g/dL Normal [facility] Comment on above: Performed By: #### B HOSPICE CLINICAL MARKETER, T7, TSH, CMP, LIPID #### [facility] [address] [place] [address] Dr. Diane Webber Glucose [Mass/Vol] 103 mg/dL Normal 74-106 [facility] Comment on above: Performed By: #### B HOSPICE CLINICAL MARKETER, T7, TSH, CMP, LIPID #### [facility] [address] [place] [address] Dr. Diane Webber Potassium [Moles/Vol] 4.3 mmol/L Normal 3.5-5.1 [facility] Comment on above: Performed By: #### B HOSPICE CLINICAL MARKETER, T7, TSH, CMP, LIPID #### [facility] [address] [address] [address] Diane Webber Protein [Mass/Vol] 7.9 g/dL Normal 6.4-8.2 [facility] Comment on above: Performed By: #### B HOSPICE CLINICAL MARKETER, T7, TSH, CMP, LIPID #### [facility] [address] [place] [address] Dr. Diane Webber Sodium [Moles/Vol] 138 mmol/L Normal 136-145 [facility] Comment on above: Performed By: #### B HOSPICE CLINICAL MARKETER, T7, TSH, CMP, LIPID #### [facility] [address] [address] [address] Diane Webber Urea nitrogen [Mass/Vol] 8.0 mg/dL Normal 7.0-18.0 [facility] Comment on above: Performed By: #### B HOSPICE CLINICAL MARKETER, T7, TSH, CMP, LIPID #### [facility] [address] [address] [address] Diane Webber Urea nitrogen/Creatinine [Mass ratio] 9.1 mg/mg Normal [facility] Comment on above: Performed By: #### B HOSPICE CLINICAL MARKETER, T7, TSH, CMP, LIPID #### [facility] [address] [address] [address] Diane Webber TSHon 08-17-2022 TSH 1.506 uIU/mL Normal 0.358-3.740 [facility] Comment on above: Performed By: #### B HOSPICE CLINICAL MARKETER, T7, TSH, CMP, LIPID #### [facility] [address] [address] [address] Diane Webber VITAMIN D 25 OHon 08-17-2022 VIT D 25-OH 23.0 ng/mL Normal [facility] Comment on above: Performed By: #### P SASC, IRON, VITAD ####[facility] [address] [place], [place] [address]WuDr. Diane Webber VIT D RANGES SEE BELOW Normal [facility] Comment on above: Result Comment: <20 ng/mL Vit D deficient 20 - <30 ng/mL Vit D insufficient 30 - 100 ng/mL Vit D sufficient >100 ng/mL Potential Toxicity Performed By: #### P SASC, IRON, VITAD ####[facility] [address] [place] [id number]. Diane Webber Vital Signs Date Time Vital Sign Value Performing Clinician Facility 08-19-2024 15:44-0500 Diastolic blood pressure 102 mm[Hg] Bar ARRINGTON [facility] [place] 08-19-2024 15:44-0500 Mean blood pressure 115 mm[Hg] Bar NILL [facility] [place] 08-19-2024 15:44-0500 Systolic blood pressure 142 mm[Hg] Bar NILL [facility] [place] 08-19-2024 15:21-0500 Blood Pressure Location Bar NILL [facility] [place] 08-19-2024 15:21-0500 Diastolic blood pressure 108 mm[Hg] Bar NILL [facility] [place] 08-19-2024 15:21-0500 Heart rate 76 /min Bar NILL [facility] 08-19-2024 15:21-0500 Respiratory rate 16 /min Bar NILL [facility] [place] 08-19-2024 15:21-0500 Systolic blood pressure 154 mm[Hg] Bar NILL [facility] 09-07-2023 14:15-0500 Body height 180.34 cm Anne Jannette Other [facility] Other 09-07-2023 14:15-0500 Body mass index (BMI) [Ratio] 37.74 kg/m2 Anne Jannette Other [facility] Other 09-07-2023 14:15-0500 Body temperature 99.1 [degF] Anne Bhatia Other [facility] Other 09-07-2023 14:15-0500 Body weight 122.74 kg Anne Bhatia Other [facility] Other 09-07-2023 14:15-0500 Respiratory rate 20 /min Anne Jannette Other [facility] Other 09-07-2023 14:15-0500 SaO2% (BldA) [Mass fraction] 98 % Anne Jannette Other [facility] Other 12-07-2022 13:50-0400 Body height 180.34 cm Anne Jannette Other [facility] Other 12-07-2022 13:50-0400 Body mass index (BMI) [Ratio] 35.92 kg/m2 Anne Jannette Other [facility] Other 12-07-2022 13:50-0400 Body temperature 97.9 [degF] Anne Jannette Other [facility] Other 12-07-2022 13:50-0400 Body weight 116.85 kg Anne Jannette Other [facility] Other 12-07-2022 13:50-0400 Diastolic blood pressure 117 mm[Hg] Anne Jannette Other [facility] Other 12-07-2022 13:50-0400 Respiratory rate 18 /min Anne Jannette Other [facility] Other 12-07-2022 13:50-0400 SaO2% (BldA) [Mass fraction] 97 % Anne Jannette Other [facility] Other 12-07-2022 13:50-0400 Systolic blood pressure 152 mm[Hg] Anne Jannette Other [facility] Other Encounters Encounter Date Encounter Type Care Provider Facility Start: 08-31-2024 End: 08-31-2024 ambulatory LEYDI PONCE [facility] Start: 08-19-2024 End: 08-19-2024 ambulatory Bar ARRINGTON Facility:[facility] Start: 08-19-2024 End: 08-19-2024 Patient encounter procedure Bar Coulter ROSALaurita [facility] [place] Start: 08-03-2024 ambulatory Bar LEELaurita Facility:Shilo Soriano Start: 09-07-2023 End: 09-07-2023 ambulatory Anne Bhatia Other [facility] Other Start: 09-07-2023 Office outpatient vi sit 15 minutes Annehannah Bhatia [facility] Start: 01-30-2023 End: 01-30-[address] JENN MASON . Facility:[facility] Start: 01-18-2023 End: 01-19-2023 ambulatory HORACIOALIA WILSON . Facility:[facility] Start: 12-07-2022 End: 12-07-2022 ambulatory Anne Bhatia Other [facility] Other Start: 12-07-2022 Office outpatient vi sit [...] Performed By: #### P SASC, IRON, VITAD ####[facility] [address] [place], [place] [address]Qi. Diane Webber Decompression of med edward nerve Bar NILL Excision of lesion of lip Karen LEEL FESS - Functional endoscopic sinus surgery - posterior ethmoidectomy Bar NILL Repair of right ingu inal hernia Bar NILL Right hydrocelectomy Bar NILL Payers Date Payer Category Payer Unknown [id number] 1970 Unknown [id number] 2.16.84 [id number] 1971 Unknown [id number] 2.16.84 [id number] 1971 Unknown [id number] 2.16.84 [id number] 1971 Unknown [id number] 2.16.84 [id number] 1971 Unknown [id number] 2.16.84 [id number] 1971 Unknown [id number] 2.16.84 [id number] 1971 Unknown [id number] 2.16.84 [id number] 1971 Unknown [id number] 2.16.8 [id number] 1971 Unknown [id number] 2.16.8 [id number] 1959 Unknown [id number] 1959 Unknown [id number] Blue [employer] Blue Shield [id number] Social History Date Type Detail Facility Unknown if ever smoked [facility] Other Sex Assigned At [facility] Start: 08-19-2024 Tobacco smoking status Heavy t obacco smoker (finding) [facility] Comment on above: Pt quit smoking [facility] Tobacco smoking status Never [facility] Comment on above: Pt quit smoking [facility] Functional Status Date Assessment Result Facility 08-19-2024 Functional Status N/A [facility] Progress note 08-31-2024 Note Date & Type Note Facility 08-31-2024 Note [facility] Subjective Rhett Venegas is a 54 y.o. year old male patient being seen for Chest Pain , Hypertension , Shortness of Breath , Palpitations and Fatigue Patient Active Problem List Diagnosis Alcoholism ([facility]) Anxiety Chronic obstructive pulmonary disease ([facility]) BMI 37.0-37.9, adult Essential hypertension Hypertriglyceridemia Obstructive sleep apnea Occult blood in stools Psoriasis Psoriatic arthritis ([facility]) Tobacco user HPI Patient is here because he is concerned about recurrent left chest pain which occurs with exertion although it did not occur on his last stress test. It is associated frequently with dyspnea on exertion. It does not occur with rest. Other than that he denies orthopnea or paroxysmal nocturnal dyspnea or dizziness or palpitations or legs edema. He is a smoker, used to smoke 1 pack/day for 30 years and he cut down to half pack per day. He also drinks about 5-6 beers a day for about 20 years. He denies any illicit drugs. ROS All systems were reviewed and they were negative except for the positive findings noted above in the history Past Medical History: Diagnosis Date Hypertension Psoriasis Psoriatic arthritis ([facility]) Past Surgical History: Procedure Laterality Date HERNIA REPAIR Family History Problem Relation Name Age of Onset Coronary artery disease Mother Other (coronary stent) Mother Social History Tobacco Use Smoking status: Every Day Current packs/day: 0.50 Types: Cigarettes Smokeless tobacco: Former Substance Use Topics Alcohol use: Yes Alcohol/week: 70.0 standard drinks of alcohol Types: 70 Cans of beer per week Comment: heavy 6-10 beers per day Drug use: Never Allergies Allergies Allergen Reactions Sulfa (Sulfonamide Antibiotics) Medications Current Outpatient Medications: amLODIPine (Norvasc) 5 mg tablet, Take 5 mg by mouth 1 (one) time each day at the same time., Disp: , Rfl: aspirin 325 mg tablet, Take 325 mg by mouth in the morning., Disp: , Rfl: irbesartan (Avapro) 300 mg tablet, Take 300 mg by mouth at bedtime., Disp: , Rfl: metoprolol tartrate (Lopressor) 50 mg tablet, Take 50 mg by mouth once daily as directed., Disp: , Rfl: nitroglycerin (Nitrostat) 0.4 mg SL tablet, Place 0.4 mg under the tongue., Disp: , Rfl: Objective Visit Vitals BP (!) 152/100 (BP Location: Left arm, Patient Position: Sitting) Pulse 92 Ht 1.803 m (5' 11 ) Wt 122 kg (269 lb) SpO2 97% BMI 37.52 kg/m??? Smoking Status Every Day BSA 2.47 m??? Physical exam: GENERAL: alert and oriented x3, well developed, in no acute distress. HEAD: atraumatic, normocephalic. EYES: ARIANNA, EOMI. NECK: trachea midline, no JVD present, no carotid bruits present. CARDIAC: S1, S2 present. RRR. No murmur, rubs, or gallops. RESPIRATORY: CTAB, no increased effort of breathing, no rales, rhonchi, or wheezing. ABDOMEN: soft, nontender, nondistended. EXTREMITIES: no lower extremity edema, peripheral pulses are 2+ bilaterally. No rash/skin discoloration present. NEURO: strength/sensation equal and symmetric in bilateral upper and lower extremities. PSYCH: appropriate mood, affect, and judgement. Recent Labs 07/31/2024 White blood count 6.8, hemoglobin 16.4, hematocrit 47.4, platelets 221 Sodium 141, potassium 4.7, BUN 12, creatinine 0.97, GFR above 60, glucose 108, calcium 9.1 HbA1c 5.6% Total bilirubin 0.4, AST 19, ALT 42, alk phos 75, total protein 7.5, albumin 3.5 cholesterol 234, LDL 145, triglyceride 100, HDL 65 TSH 2.061 with T44.9, free T32.72 proBNP 65 Imaging and other tests EK08/12/2024 at the time of stress test showed normal sinus rhythm, 87 bpm, normal EKG Echo: 08/30/2022 Borderline LVH Normal left ventricle systolic function, ejection fraction 55 to 60% Normal right ventricle size and function No significant valvular abnormality Treadmill nuclear stress test: 08/12/2024 EKG portion Nuclear portion Stress test 10/03/2022 Cardiac cath: Event Monitor: Cardiac MRI: CX ray: Assessment/Plan Exertional chest pain consistent with unstable angina. The patient had recent stress test which showed EKG abnormalities however the nuclear images showed only fixed inferior defect without ischemia. Patient has persistent exertional chest pain now associated with shortness of breath. Aspirin daily and metoprolol 50 mg twice daily Abnormal stress nuclear test 07/2024 As mentioned above the EKG portion was abnormal but the nuclear images showed only fixed inferior defect Hypertension, not well-controlled. He is on metoprolol 50 mg twice daily, amlodipine 5 mg daily, and Avapro 300 mg daily Hyperlipidemia, currently not on medication Obesity, BMI 37.5 kg/m??? Tobacco abuse, 1 pack/day for 30 years and he cut down lately to half pack per day Alcohol abuse, 5-6 beers a day for 20 years Psoriasis Plan: Continue aspirin (more content not included)... [facility] Clinical Note 08-19-2024 Note Date & Type [...] Mother. Primary malignant neoplasm of lung: Father. [facility] Comment on above: Result Comment: Elec [...] days Sep, Thrush, oral (ICD-10 - B37.0) [facility] Other Evaluation note 12-07-2022 Note Date & [...] Dec, Cough, unspecified type (ICD-10 - R05.9) [facility] Other Clinical Note 10-03-2022 Note Date & [...] and relayed in a separate dictation. [facility] Evaluation + Plan note Note Date & Type Note Facility Evaluation + Plan note No data available for this section [facility] [place] History general Narrative - Reported Note Date & Type Note Facility History general Narrative - Reported Type Medical History HTN (hypertension) Medical History Psoriasis Surgical History hernia repair Surgical History hydrocele repair [facility] [employer] Other History general Narrative - Reported Note Date & Type Note Facility History general Narrative - Reported Type Medical History HTN (hypertension) Medical History Psoriasis Surgical History hernia repair Surgical History hydrocele repair Hospitalization History SEE ABOVE [facility] Other Hospital Discharge instructions Note Date & Type Note Facility Hospital Discharge instructions No data available for this section [facility] [place] Progress note Note Date & Type Note Facility Progress note No data available for this section [facility] [place] Summary Purpose Family History No Family History [...] section and content) DATE CREATED AUTHOR 02/08/2023 [facility] DATE CREATED AUTHOR AUTHOR'S ORGANIZ ATION 08/20/2024 [facility] DATE CREATED AUTHOR AUTHOR'S ORGANIZ ATION 09/11/2024 [facility] Patient Care team informatio n (unrecognized section and content) Personnel Name: Arabella Hill MD Address: Address: [address] [place] [address] FOR RECORDS PERTAINING TO PATIENTS WHO ARE [...] BE BASED ON THE PRIMARY CLINICAL RECORDS. [facility]. provides no warranty or guarantee of the accuracy or completeness of information in this document.
[2024-09-23 08:12] LABS: Basophils Absolute Auto 0.1 10^3/uL (0.0-0.1); Basophils Percent Auto 1.7 % (0.2-2.0); Eosinophils Absolute Auto 0.1 10^3/uL (0.0-0.7); Eosinophils Percent Auto 2.1 % (0.9-7.0); Hematocrit 45.2 % (42.0-54.0); Hemoglobin 15.6 g/dL (14.0-18.0); Immature Granulocytes Abs Auto 0.04 10^3/uL (0.00-0.03); Immature Granulocytes Pct Auto 0.7 % (0.0-0.5); Lymphocytes Absolute Auto 2.3 10^3/uL (1.2-3.8); Lymphocytes Percent Auto 37.8 % (20.5-60.0); Mean Corpuscular HGB Conc 34.5 g/dL (29.9-35.2); Mean Corpuscular Hemoglobin 34.2 pg (25.9-34.0); Mean Corpuscular Volume 99.1 fL (80.0-94.0); Mean Platelet Volume 9.2 fL (9.5-13.5); Monocytes Absolute Auto 0.7 10^3/uL (0.3-0.8); Monocytes Percent Auto 11.9 % (1.7-12.0); Neutrophils Absolute Auto 2.8 10^3/uL (1.4-6.5); Neutrophils Percent Auto 45.8 % (43.0-75.0); Platelet Count 213 10^3/uL (150-450); Red Blood Count 4.56 10^6/uL (4.70-6.10); Red Cell Distribution Width 11.9 % (11.0-15.0); White Blood Count 6.1 10^3/uL (4.0-11.0)
[2024-09-23 08:32] LABS: Anion Gap 14.4; BUN Creatinine Ratio 12.7; Calcium 9.2 mg/dL (8.5-10.1); Carbon Dioxide 26.3 mmol/L (21.0-32.0); Chloride 103 mmol/L (98-107); Estimated GFR (African America >60 (>=60 mL/min/1.73m^2); Estimated GFR (Non-African Ame >60 (>=60 mL/min/1.73m^2); Glucose 95 mg/dL (74-106); Potassium 4.7 mmol/L (3.5-5.1); Sodium 139 mmol/L (136-145)
== END 2024-09-23 07:10 | disposition home or self-care (01) ==
LOC: CARD 07:09
PROVIDERS: PCP Family Medicine; Visit Provider Internal Medicine Cardiovascular Disease
DX: R06.09 Other forms of dyspnea (principal)
CPT/HCPCS: 36415; 80048; 85025; 93306

== ENCOUNTER 2025-04-02 09:23 | Outpatient (OUT) | payer BC, SELFPAY ==
--- OUTSIDE RECORDS SUMMARY | 2024-08-28 09:50 | XMS_ITS ---
Author Organization 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 Name Role Phone LizCurly Primary Care Provider REASON FOR VISIT refill meds to DM Medications Medication SIG (Take, Route, Frequency, Duration) Notes Start Date End Date Status Irbesartan 300 MG 1 tablet Orally Once a day for 30 days Active Metoprolol Tartrate 50 MG 1 tablet with food Orally Twice a day for 30 days Active Aspirin 81 MG 1 tablet Orally Once a day for 30 days 07/29/2024 Active amLODIPine Besylate 5 MG 1 tablet Orally Once a day for 30 days Active Encounters Encounter Location Date Provider Diagnosis [facility] [address] [place] [address] 08/28/2024 Curly Hill Essential hypertensi on I10 and Hypertension I10 Assessments Encounter Date Diagnosis (ICD Code) Assessment Notes Treatment Notes Treatment Clinical Notes Section Notes 08/28/2024 Essential hypertension (ICD-10 - I10) 08/28/2024 Hypertension (ICD-10 - I10) Plan Of Treatment Medication Medication Name Sig Start Date Stop Date Notes Irbesartan 300 MG 1 tablet Orally Once a day for 30 days Metoprolol Tartrate 50 MG 1 tablet with food Orally Twice a day for 30 days Aspirin 81 MG 1 tablet Orally Once a day for 30 days 07/29/2024 amLODIPine Besylate 5 MG 1 tablet Orally Once a day for 30 days Progress Notes * Rhett VENEGAS EDOB:1969 (54 yo M)Acc No.[id number]:08/28/2024 Patient: Rhett FRAGA :1970 A ge:54 Y S ex:Male Address:[address] [place] [address], [id number] * Refills Refill Aspirin Tablet Chewable, 81 MG, Orally, 30, 1 tablet, Once a day, 30 days, Refills=11 Refill amLODIPine Besylate Tablet, 5 MG, Orally, 30 Tablet, 1 tablet, Once a day, 30 days, Refills=11 Refill Irbesartan Tablet, 300 MG, Orally, 30, 1 tablet, Once a day, 30 days, Refills=11 Refill Metoprolol Tartrate Tablet, 50 MG, Orally, 60, 1 tablet with food, Twice a day, 30 days, Refills=11 * true * Date: Generated for Jayce palmer/Elie/Mynor on: 0 04/02/2025 09:29 AM EDT
--- OUTSIDE RECORDS SUMMARY | 2024-11-10 04:11 | XMS_ITS ---
Author Organization The [facility] [place] Address [address] [place] [address] Care Team Providers Care Management Specialist Name Role Phone Curly Hill Primary Care Provider REASON FOR VISIT update cardio Medications Medication SIG (Take, Route, Frequency, Duration) Notes Start Date End Date Status Metoprolol Tartrate 50 MG 1 tablet with food Orally Twice a day for 30 days Unknown Tgatwsvb-Lbllhkycp-Pqpxmxsq 3.5-91927-1.1 1 drop into affected eye Ophthalmic Four times a day for 7 days 07/29/2024 Unknown Viagra 100 MG 1 tablet as needed Orally Once a day for 30 day(s) 12/25/2023 Active Trelegy Ellipta 100-62.5-25 MCG/ACT 1 puff Inhalation Once a day for 30 01/01/2023 Unknown Nitroglycerin 0.4 MG 1 sl Sublingual Q 5 min as needed for chest pain 07/29/2024 Active Aspirin 81 MG 1 tablet Orally Once a day for 30 days 07/29/2024 Unknown Losartan Potassium 100 MG 1 tablet Orall y Once a day Active Farxiga 10 MG 1 tablet Orally Once a day Active Coreg 25 MG 1 tablet with food Orally Twice a day Active Irbesartan 300 MG 1 tablet Orally Once a day for 30 days Unknown amLODIPine Besylate 10 MG 1 tablet Orall y Once a day for 30 days Active Isosorbide Mononitrate ER 120 MG 1 tablet in the morning Orally Once a day 11/10/2024 Active Rosuvastatin Calcium 20 MG 1 tablet Oral ly Once a day 11/10/2024 Active Encounters Encounter Location Date Provider Diagnosis [facility] [address] [place] [address] 11/10/2024 Curly Hill Plan Of Treatment No Information Progress Notes * Rhett VENEGAS EDOB:1969 (54 yo M)Acc No.[id number]:11/10/2024 Patient: Rhett FRAGA :1970 A ge:54 Y S ex:Male Address:[address] [place] [id number] Subjective: * Chief Complaints: * U pdate cardio * Medical History: * Surgical History: * Hospitalization/Major Diagno stic Procedure: * Medications: T akingamLODIPine Besylate 10 MG Tablet 1 tablet Orally Once a day Coreg(Carvedilol) 25 MG Tablet 1 tablet with food Orally Twice a day Farxiga(Dapagliflozin Propanediol) 10 MG Tablet 1 tablet Orally Once a day Isosorbide Mononitrate ER 120 MG Tablet Extended Release 24 Hour 1 tablet in the morning Orally Once a day Losartan Potassium 100 MG Tablet 1 tablet Orally Once a day Nitroglycerin 0.4 MG Tablet Sublingual 1 sl Sublingual Q 5 min as needed for chest pain Rosuvastatin Calcium 20 MG Tablet 1 tablet Orally Once a day Viagra(Sildenafil Citrate) 100 MG Tablet 1 tablet as needed Orally Once a day Taking amLODIPine Besylate 10 MG Tablet 1 tablet Orally Once a day Taking Coreg(Carvedilol) 25 MG Tablet 1 tablet with food Orally Twice a day Taking Farxiga(Dapagliflozin Propanediol) 10 MG Tablet 1 tablet Orally Once a day Taking Isosorbide Mononitrate ER 120 MG Tablet Extended Release 24 Hour 1 tablet in the morning Orally Once a day Taking Losartan Potassium 100 MG Tablet 1 tablet Orally Once a day Taking Nitroglycerin 0.4 MG Tablet Sublingual 1 sl Sublingual Q 5 min as needed for chest pain Taking Rosuvastatin Calcium 20 MG Tablet 1 tablet Orally Once a day Taking Viagra(Sildenafil Citrate) 100 MG Tablet 1 tablet as needed Orally Once a day UnknownAspirin 81 MG Tablet Chewable 1 tablet Orally Once a day Irbesartan 300 MG Tablet 1 tablet Orally Once a day Metoprolol Tartrate 50 MG Tablet 1 tablet with food Orally Twice a day Gfoyjqjw-Lhervytim-Mcfqtmdh 3.5-30637-1.1 Ointment 1 drop into affected eye Ophthalmic Four times a day Trelegy Ellipta(Trqiglpjryh-Mahyrkhtr-Yonllz) 100-62.5-25 MCG/ACT Aerosol Powder Breath Activated 1 puff Inhalation Once a day Medication List reviewed and reconciled with the patientUnknown Aspirin 81 MG Tablet Chewable 1 tablet Orally Once a day Unknown Irbesartan 300 MG Tablet 1 tablet Orally Once a day Unknown Metoprolol Tartrate 50 MG Tablet 1 tablet with food Orally Twice a day Unknown Hhvhqxvw-Ztljkxowx-Ysydfreh 3.5-14300-5.1 Ointment 1 drop into affected eye Ophthalmic Four times a day Unknown Trelegy Ellipta(Gbspcfqxlbp-Wkffbythu-Njipyf) 100-62.5-25 MCG/ACT Aerosol Powder Breath Activated 1 puff Inhalation Once a day Medication List reviewed and reconciled with the patient Objective: * Vitals: * Physical Examination: Assessment: Plan: * Treatment: * Procedure Codes: * true * Date: Generated for Jayce palmer/Elie/Ogitting on: 0 04/02/2025 09:29 AM EDT
--- OUTSIDE RECORDS SUMMARY | 2025-01-05 06:31 | XMS_ITS ---
Author Organization The [facility] [place] Address [address] [place] [address] Care Team Providers Care [place] Polisher Name Role Phone Curly Hill Primary Care Provider REASON FOR VISIT yearly CT Encounters Encounter Location Date Provider Diagnosis [facility] [address] [place] [address] 01/05/2025 Curly Hill Cigarette nicotine dependence with nicotine-induced disorder F17.219 Assessments Encounter Date Diagnosis (ICD Code) Assessment Notes Treatment Notes Treatment Clinical Notes Section Notes 01/05/2025 Cigarette nicotine dependence with nicotine-induce d disorder (ICD-10 - F17.219) Plan Of Treatment Pending Test Test Name Order Date CT Chest Low Dose for Screening* 025 Progress Notes * Rhett HART EDOB:1969 (54 yo M)Acc No.[id number]:01/05/2025 Patient: Rhett FRAGA :1970 A ge:54 Y S ex:Male Address:[address] [place] [address], [phone] Subjective: * Chief Complaints: * y early CT * Medical History: * Surgical History: * Hospitalization/Major Diagno stic Procedure: * Medications: Objective: * Vitals: * Physical Examination: Assessment: * Assessment: 1. C igarette nicotine dependence with nicotine-induced disorder - F17.219 (Primary) Plan: * Treatment: * Procedure Codes: * true * Date: Generated for Printi ng/Faxing/Mynor on: 0 04/02/2025 09:29 AM EDT
--- OUTSIDE RECORDS SUMMARY | 2025-04-02 09:29 | XMS_ITS | Clinical Summary ---
Author Organization Baboo tem Address [id number] [address] [place] [address] Care Team Providers Care Cumulative Effects Analyst Name Role Phone Chema Hill MD Primary Care Provider [phone] Allergies Active Allergy Reactions Criticality Noted Date Comments Sulfa (Sulfonamide Antibiotics) Low 09/03 Medications adalimumab (HUMIRA,CF, PEN) 40 mg/0.4 mL pen injector kit 09/04/2022 Active aspirin 325 mg tablet Take 1 tablet (325 mg total) by mouth in the morning. Active benzocaine-ment hoL (CHLORASEPTIC SORE THROAT) 6-10 mg lozenge Dissolve 1 lozenge in the mouth every 2 (two) hours as needed for sore throat. 100 tablet 12/10/2022 Active albuterol (PROVENTIL HFA;VENTOLIN HFA) 90 mcg/actuation inhalerIndicati ons:Bronchitis Inhale 2 puffs every 4 (four) hours as needed for wheezing. 18 g 12/10/2022 Active metoprolol tartrate (LOPRESSOR) 50 mg tablet Take 1 tablet (50 mg total) by mouth in the morning and 1 tablet (50 mg total) before bedtime. Active amLODIPine (NORVASC) 5 mg tablet Take 1 tablet (5 mg total) by mouth in the morning. Active Social History Tobacco Use Types Packs/Day Years Used Date Smoking Tobacco: Every Day Cigarettes 1 28.6 Started: 1996 Tobacco Cessation:Ready to Q uit: Not Asked; Counseling Given: Not Answered Alcohol Use Standard Drinks/Week Comments Not Currently 0 (1 standard drink = 0.6 oz pur e alcohol) Childcare Answer Date Recorded Childcare Unknown 02/10/2019 Employment Answer Date Recorded Employment Unknown 02/10/2019 Hunger Screening Answer Date Recorded Within the past 12 months we worried whether our food would run out before we got money to buy more. Never True 10/06/2024 Within the past 12 months th e food we bought just didn't last and we didn't have money to get more. Never True 10/06/2024 Sex and Gender Information Value Date Recorded Sex Assigned at Not on file Legal Sex Male 7:13 PM EDT Gender Identity Not on file Sexual Orientation Not on file Last Filed Vital Signs Vital Sign Reading Time Taken Comments Blood Pressure 105/89 10/07/2024 8:00 AM EST Pulse 97 10/07/2024 8:00 AM EST Temperature 36.4 C (97.5 F) 10/06/2024 11:39 PM EST Respiratory Rate 12 10/07/2024 7:30 AM EST Oxygen Saturation 96% 10/07/2024 8:00 AM EST Inhaled Oxygen Concentration - - Weight 121.6 kg (268 lb) 10/06/2024 11:21 PM EST Height 180.3 cm (5' 11 ) 10/06/2024 11:21 PM EST Body Mass Index 37.38 10/06/2024 11:21 PM EST Plan of Treatment Health Maintenance Due Date Last Done Comments Tobacco Counseling 1970 Depression Screening 1983 Tobacco Screening 1983 Adult BMI Follow Up Plan 1989 DTaP,Tdap and Td Vaccines (1 - Tdap) 1990 Zoster (Shingles) Vaccine (1 of 2) 2021 Influenza Vaccine 2025 Adult BMI Screening 10/06/2025 10/06/2024 Medical Devices Not on file Insurance [employer] Care Teams Cumulative Effects Analyst Relationship Specialty Start Date End Date Chema Hill MD [address] [place] [address] PCP - General Family Medicine 12/10/22
--- OUTSIDE RECORDS SUMMARY | 2025-04-02 09:29 | XMS_ITS | Clinical Summary ---
Author Organization [facility] Address [address] [place] [address] Care Team Providers Care Dental Hygienist Mobile Coordinator Name Role Phone Chema Hill MD Primary Care Provider [phone] Allergies Active Allergy Reactions Criticality Noted Date Comments Sulfa (Sulfonamide Antibiotics) Low 09/03 Medications aspirin 81 mg chewable tablet Chew 81 mg in the morning. Active nitroglycerin (Nitrostat) 0.[address] 0.4 mg under the tongue. 4 Active amLODIPine (Norvasc) 10 mg tabletIndications: Hypertensive emergency Take 1 tablet (10 mg) by mouth once daily as directed for 360 doses. 90 tablet 3 5 10/16/19 26 Active carvedilol (Coreg) 25 mg tabletIndications: Chronic heart failure with preserved ejection fraction (CMS/HCC) Take 1 tablet (25 mg) by mouth with breakfast and with evening meal. 180 tablet 3 5 10/16/19 26 Active dapagliflozin propanediol (Farxiga) 10 mgIndications:Detailer kaleigh heart failure with preserved ejection fraction (CMS/HCC) Take 1 tablet (10 mg) by mouth once daily as directed. 90 tablet 3 5 10/21/19 26 Active isosorbide mononitrate ER (Imdur) 120 mg 24 hr tabletIndications: Chronic heart failure with preserved ejection fraction (CMS/HCC) Take 1 tablet (120 mg) by mouth once daily as directed for 360 doses. Do not crush or chew. 90 tablet 3 5 10/16/19 26 Active losartan (Cozaar) 100 mg tabletIndications: Hypertensive emergency Take 1 tablet (100 mg) by mouth once daily as directed. 90 tablet 3 5 10/16/19 26 Active rosuvastatin (Crestor) 20 mg tabletIndications: Hyperlipidemia, unspecified hyperlipidemia type Take 1 tablet (20 mg) by mouth at bedtime. 90 tablet 3 5 10/16/19 26 Active Active Problems Problem Noted Date Diagnosed Date Chronic heart failure with preserved ejection fr action 11/01/2024 Coronary artery disease invo lving [place] coronary artery of [place] heart with unstable angina pectoris 10/07/2024 Assessment & Plan (10/07/2024 10:19 AM EST): Stat EKG Stat troponin Cardiology consulted Continue heparin and nitroglycerin gtts Abnormal cardiovascular stress test 09/03/2024 SAAB (dyspnea on exertion) 09/03/2024 Alcoholism 08/31/2024 Assessment & Plan (10/07/2024 10:19 AM EST): Last drink last night reports history of withdrawal requiring ICU CIWA protocol ordered Anxiety 08/31/2024 Chronic obstructive pulmonary disease 08/31/2024 BMI 37.0-37.9, adult 08/31/2024 Hyperlipidemia 08/31/2024 Obstructive sleep apnea 08/31/2024 Occult blood in stools 08/31/2024 Psoriasis 08/31/2024 Psoriatic arthritis 08/31/2024 Tobacco user 08/31/2024 Assessment & Plan (10/07/2024 9:41 AM EST): Encourage cessation Admit to stepdown Ambulate as tolerated Continuous telemetry N.p.o. in case of heart cath today If no invasive procedures planned by cardiology, can have cardiac diet Daily BMP and CBC to evaluate for kidney function, lites lites, hemoglobin and WBC Case will be discussed with attending physician Essential hypertension 09/05/2022 Assessment & Plan (10/07/2024 10:19 AM EST): Continue metoprolol, amlodipine Resolved Problems Problem Noted Date Diagnosed Date Resolved Date Angina pectoris, unstable 09/03/2024 Family History Medical History Relation Name Comments Coronary artery disease Mother coronary stent Mother Relation Name Status Comments Mother Social History Tobacco Use Types Packs/Day Years Used Date Smoking Tobacco: Every Day Cigarettes Smokeless Tobacco: Former Tobacco Cessation:Ready to Q uit: Not Asked; Counseling Given: Not Answered Alcohol Use Standard Drinks/Week Comments Yes 70 (1 standard drink = 0.6 oz pu re alcohol) heavy 6-10 beers per day [facility] Utilities Answer Date Recorded In the past 12 months has th e [employer], gas, oil, or water company threatened to shut off services in your home? No 10/07/2024 Humiliation, Afraid, Rape, and Kick questionnair e Answer Date Recorded Within the last year, have y ou been afraid of your partner or ex-partner? No 10/07/2024 Emotionally Abused Not on file 10/07/2024 Physically Abused Not on file 10/07/2024 Sexually Abused Not on file 10/07/2024 Overall Financial Resource Strain (CARDIA) Answe r Date Recorded How hard is it for you to pa y for the very basics like food, housing, medical care, and heating? Not hard at all 10/07/2024 Transportation Answer Date Recorded In the past 12 months, has l ack of transportation kept you from medical appointments or from getting medications? No 10/07/2024 Lack of Transportation (Non-Medical) Not on file 10/07/2024 Housing Stability Vital Sign Answer Fernando e Recorded In the last 12 months, was t here a time when you were not able to pay the mortgage or rent on time? No 10/07/2024 In the past 12 months, how m any times have you moved where you were living? 1 10/07/2024 At any time in the past 12 m [facility], were you homeless or living in a [place] (including now)? No 10/07/2024 Hunger Vital Sign Answer Date Recorded Within the past 12 months, y ou worried that your food would run out before you got the money to buy more. Never true 10/07/19 25 Ran Out of Food in the Last Year Not on file 10/07/2024 Sex and Gender Information Value Date Recorded Sex Assigned at Male 10/08/2024 2:23 PM EST Legal Sex Male 10:23 AM EST Gender Identity Male 10/08/2024 2:23 PM EST Sexual Orientation Heterosexual or Straight 01/2025 2:23 PM EST Last Filed Vital Signs Vital Sign Reading Time Taken Comments Blood Pressure 115/112 10/21/2024 11:45 AM EST Pulse 88 10/21/2024 11:21 AM EST Temperature 36.7 C (98 F) 10/09/2024 12:05 PM EST Respiratory Rate 24 10/09/2024 12:05 PM EST Oxygen Saturation 97% 10/21/2024 11:21 AM EST Inhaled Oxygen Concentration - - Weight 123 kg (271 lb) 10/21/2024 11:21 AM EST Height 180.3 cm (5' 11 ) 10/21/2024 11:21 AM EST Body Mass Index 37.8 10/21/2024 11:21 AM EST Plan of Treatment Upcoming Encounters Date Type Department Care Team (Late st Contact Info) Description 04/14/2025 3:00 PM EDT Office Visit [facility] [address] [place] [address] Caterina Jovel, [employer] [address] [place] [id number] Health Maintenance Due Date Last Done Comments CT Colonography 1971 Colonoscopy 1971 Colorectal Cancer Screening 1971 FIT-DNA 1971 FIT 1971 FOBT 1971 Sigmoidoscopy 1971 Depression Screening 1983 Hepatitis B Vaccines (1 of 3 - 19+ 3-dose series) 1990 Pneumococcal Vaccine: Pediat rics (0 to 5 Years) and At-Risk Patients (6 to 64 Years) (1 of 2 - PCV) 1990 Adult Tetanus 1993 Zoster Vaccines (1 of 2) 2021 COVID-19 Vaccine (2023-2 5 season) 2024 Influenza Vaccine (#1) 2025 HIB Vaccines Aged Out No longer eligi ble based on patient's age to complete this topic HPV Vaccines Aged Out No longer eligi ble based on patient's age to complete this topic IPV Vaccines Aged Out No longer eligi ble based on patient's age to complete this topic Meningococcal B Vaccine Aged Out No l onger eligible based on patient's age to complete this topic Meningococcal Vaccine Aged Out No jeffrey cl eligible based on patient's age to complete this topic Rotavirus Vaccines Aged Out No longer eligible based on patient's age to complete this topic Insurance [facility] Advance Directives * Full Code (Latest Code Status on File) Date Activated Date Inactivated Comments 10/07/2024 9:36 AM 10/09/2024 2:41 PM Care Teams Dental Hygienist Mobile Coordinator Relationship Specialty Start Date End Date Chema Hill MD [address] [address] PCP - General 09/18/22
--- OUTSIDE RECORDS SUMMARY | 2025-04-02 09:30 | XMS_ITS | Patient Health Record ---
Author Organization [facility] in [place] Address [address] [place] [address] Care Team Providers Care Broadcast Checker Name Role Phone Curly Hill Primary Care Provider Allergies Allergen (clinical drug ingredient) Drug/Non Drug Allergy documented on EMR Reaction Allergy Type Onset Date Status Substance with sulfonamide structure and antibacterial mechanism of action (substance) Sulfa Antibiotics Dr Valero told dont take- red head Drug Allergy Active Results Component Value Reference Range Notes FREE T3 Reviewed date:07/31/2024 11:29:35 AM Interpretation: Performing Lab: Notes/Report: [facility] , Free T3 2.72 2.18-3.98 pg/mL Performing Lab: see note ML - [facility] LB LIPID PROFILE Reviewed date:07/31/2024 11:29:35 AM Interpretation: Performing Lab: Notes/Report: [facility] , Triglycerides 100 <=150 mg/dL Cholesterol 234 <=200 mg/dL HDL Cholesterol 65 40-60 mg/dL > or =60 mg/dl - LOW CARDIOVASCULAR RISK <40 mg/dl - HIGH CARDIOVASCULAR RISK LDL Cholesterol Calculated 149.0 100-129 mg/dl NEAR OR ABOVE OPTIMAL >190 mg/dl VERY HIGH 160-189 mg/dl HIGH <100 mg/dl OPTIMAL 130-159 mg/dl BORDERLINE HIGH VLDL CHOLESTEROL 20.0 Chol HDL Ratio 3.6 >11.0 HIGH RISK 4.4 - 7.1 AVERAGE RISK 3.3 - 4.4 LOW RISK 7.1 - 11.0 MODERATE RISK Performing Lab: see note ML - [facility] LB PROF 14(COMP METB) Reviewed date:07/31/2024 11:29:35 AM Interpretation: Performing Lab: Notes/Report: [facility] , Sodium 141 136-145 mmol/L Potassium 4.7 3.5-5.1 mmol/L Chloride 104 98-107 mmol/L Carbon Dioxide 26.8 21.0-32.0 mmol/L Anion Gap 14.9 Glucose 108 74-106 mg/dL Blood Urea Nitrogen 12.0 7.0-18.0 mg/dL Creatinine 0.97 0.70-1.30 mg/dL Estimated GFR ( Sue >60 >=60 mL/min/1.73m 2 Estimated GFR (Non- Gely >60 >=60 mL/min/1.73m 2 BUN Creatinine Ratio 12.4 Calcium 9.1 8.5-10.1 mg/dL Bilirubin Total 0.4 0.2-1.0 mg/dL Aspartate Amino Transferase 19 15-37 U/L Alanine Aminotransferase 42 16-63 U/L Alkaline Phosphatase 75 46-116 U/L Total Protein 7.5 6.4-8.2 g/dL Albumin Level 3.5 3.4-5.0 g/dL Globulin 4.0 Albumin Globulin Ratio 0.9 Performing Lab: see note ML - [facility] LB T4 Reviewed date:07/31/2024 11:29:35 AM Interpretation: Performing Lab: Notes/Report: [facility] , T4 Thyroxine 4.90 4.50-12.10 ug/dL Performing Lab: see note ML - [facility] LB TSH Reviewed date:07/31/2024 11:29:35 AM Interpretation: Performing Lab: Notes/Report: [facility] , Thyroid Stimulating Hormone 2.061 0.358-3.740 uIU/mL Performing Lab: see note ML - [facility] LB Troponin I High Sensitivity Reviewed date:07/31/2024 11:29:35 AM Interpretation: Performing Lab: Notes/Report: [facility] , Troponin I High Sensitivity 16.1 4.0-76.1 pg/mL UNIVERSAL DEFINITION OF MYOCARDIAL INFARCTION. THE UPPER PERCENTILE OF cTnI DISTRIBUTION IN A REFERENCE POPULATION, USED IN ISOLATION BUT SHOULD BE INTERPRETED IN CONJUNCTION CUT-OFF POINTS HAVE BEEN ESTABLISHED BASED ON THE FOURTH 99TH PERCENTILE = 76.2 PG/ML WITH OTHER DIAGNOSTIC AND CLINICAL INFORMATION. REFERENCE LIMIT (URL) OF TROPONIN, DEFINED THE 99TH HAS BEEN CONFIRMED THE DECISION THRESHOLD FOR MD DIAGNOSIS. NOTE: HIGH-SENSITIVITY TROPONIN ASSAY IS NOT INTENDED TO BE Performing Lab: see note ML - [facility] LB NM gertrude perf SPECT rest str Reviewed date:08/12/2024 07:57:48 PM Interpretation: Performing Lab: Notes/Report: Source Facility: [facility] [place] [address] [place] [address] Nuclear Medicine Report Signed Patient: RHETT VENEGAS MR#: [id number] : 1970 Acct:[id number] Age/Sex: 54 / M ADM Date: 08/11/24 Loc: NM Attending Dr: Chema Hill M.D. Ordering Physician: Chema Hill M.D. Date of Service: 08/11/24 Procedure(s): NM gertrude perf SPECT rest str Accession Number(s): [id number] cc: Chema Hill M.D. Patient Name: RHETT VENEGAS MR#: [id number] : 1970 Exam Date: 08/11/2024 Ordering Doctor: DR Chema Hill . RADIOLOGY REPORT PROCEDURE: NM GERTRUDE PERF SPECT REST STR COMPARISON: None. INDICATIONS: CHEST PAIN, DYSPNEA TECHNIQUE: Exam Description: Stress/Rest two day protocol gated SPECT Rest Imagin.6 mCi Tc-99m Cardiolite IV on 08/11/2024 Stress Imaging 25.9 mCi Tc-99m Cardiolite IV on 08/12/2024 Exercise Protocol: Leonel Heart Rate (bpm): Rest: 93 Max: 142 PMHR: 85 Blood Pressure: Rest: 130/98 Max: 180/104 Exercise Time: Minutes: 7 Seconds: 05 Stage Reached: Stage: 3 Mets 10.0 Symptoms: Rest and peak stress ECG findings were pending and the exercise portion of the study was pending per attending physician Dr. AGRAWAL . For more details please see separate cardiac stress test report. FINDINGS: QUALITY OF STUDY: PERFUSION DEFECT: LOCATION: Basal inferior. Mid-inferior. Apical inferior. Donaldson. SIZE: Medium (3-4 segments). SEVERITY: Moderate. TYPE: Persistent. WALL MOTION: Moderate hypokinesis: Basal inferior. Mid-inferior. Apical inferior. LV SIZE: Enlarged; EDV 138 mL. TID / TCD: None; 0.7 LVEF: Abnormal. Calculated EF 54%. SUMMARY: Myocardial perfusion imaging study has ABNORMAL findings. CONCLUSION: 1. Moderate sized transmural defect in the inferior wall on stress images, stable on rest images with no redistribution 2. Dilated left ventricle, end-diastolic volume 138 milliliters 3. Borderline low left ventricular ejection fraction of 54% 4. Pending exercise test results Dictated by: Pranay Day MD on 08/12/2024 at 15:00 Approved by: Pranay Day MD on 08/12/2024 at 15:02 Dictated By: Pranay Day M.D. Signed By: 08/12/24 1503 DD/ 1502 TD/TT: Rn Document Improvement Specialist: [place] [address] Nuclear Medicine Report Signed Patient: RUTH VENEGAS MR#: [id number] : 1970 Acct:[id number] Age/Sex: 54 / M ADM Date: 08/11/24 Loc: NM Attending Dr: Basilio Hill M.D. Ordering Physician: Chema Hill M.D. Date of Service: 08/11/24 Procedure(s): NM gertrude perf SPECT rest str Accession Number(s): [id number] cc: Chema Hill M.D. Patient Name: RHETT VENEGAS MR#: [id number] : 1970 Exam Date: 08/11/2024 Ordering Doctor: DR Chema Hill . RADIOLOGY REPORT PROCEDURE: NM GERTRUDE PE RF SPECT REST STR COMPARISON: None. INDICATIONS: CHEST P AIN, DYSPNEA TECHNIQUE: Exam Description: Stress/Rest two day protocol gated SPECT Rest Imagin.6 m Ci Tc-99m Cardiolite IV on 08/11/2024 Stress Imaging 25.9 mCi Tc-99m Cardiolite IV on 08/12/2024 Exercise Protocol: Leonel Heart Rate (bpm): Re st: 93 Max: 142 PMHR: 85 Blood Pressure: Rest : 130/98 Max: 180/104 Exercise Time: Minut es: 7 Seconds: 05 Stage Reached: Stage : 3 Mets 10.0 Symptoms: Rest and peak stress ECG findings were pending and the exercise portion of the study was pending pe r attending physician Dr. AGRAWAL . For more details please see separate cardiac stress test report. FINDINGS: QUALITY OF STUDY: PERFUSION DEFECT: LOCATION: Basal inferior. Mid-inferior. Apical inferior. Donaldson. SIZE: Medium (3-4 segments). SEVERITY: Moderate. TYPE: Persistent. WALL MOTION: Moderat e hypokinesis: Basal inferior. Mid-inferior. Apical inferior. LV SIZE: Enlarged; E DV 138 mL. TID / TCD: None; 0.7 LVEF: Abnormal. Calculated EF 54%. SUMMARY: Myocardial perfusion imaging study has ABNORMAL findings. CONCLUSION: 1. Moderate sized transmural defect in the inferior wall on stress images, stable on rest image s with no redistribution 2. Dilated left ventricle, end-diastolic volume 138 milliliters 3. Borderline low le ft ventricular ejection fraction of 54% 4. Pending exercise test results Dictated by: Pranay duncan MD on 08/12/2024 at 15:00 Approved by: Pranay duncan MD on 08/12/2024 at 15:02 Dictated By: Hao Day M.D. Signed By: 08/12/24 1503 DD/ 1502 TD/TT: Rn Document Improvement Specialist: CBC AUTO DIFF Reviewed date:09/23/2024 03:50:01 PM Interpretation: Performing Lab: Notes/Report: [facility] , White Blood Count 6.1 4.0-11.0 10 3/uL Red Blood Count 4.56 4.70-6.10 10 6/uL Hemoglobin 15.6 14.0-18.0 g/dL Hematocrit 45.2 42.0-54.0 % Mean Corpuscular Volume 99.1 80.0-94.0 fL Mean Corpuscular Hemoglobin 34.2 25.9-34.0 pg Mean Corpuscular HGB Conc 34.5 29.9-35.2 g/dL Red Cell Distribution Width 11.9 11.0-15.0 % Platelet Count 213 150-450 10 3/uL Mean Platelet Volume 9.2 9.5-13.5 fL Neutrophils Percent Auto 45.8 43.0-75.0 % Lymphocytes Percent Auto 37.8 20.5-60.0 % Monocytes Percent Auto 11.9 1.7-12.0 % Eosinophils Percent Auto 2.1 0.9-7.0 % Basophils Percent Auto 1.7 0.2-2.0 % Immature Granulocytes Pct Auto 0.7 0.0-0.5 % Neutrophils Absolute Auto 2.8 1.4-6.5 10 3/uL Lymphocytes Absolute Auto 2.3 1.2-3.8 10 3/uL Monocytes Absolute Auto 0.7 0.3-0.8 10 3/uL Eosinophils Absolute Auto 0.1 0.0-0.7 10 3/uL Basophils Absolute Auto 0.1 0.0-0.1 10 3/uL Immature Granulocytes Abs Auto 0.04 0.00-0.03 10 3/uL Performing Lab: see note ML - [facility] PROF CHEM 8 (BAS METB) Reviewed date:09/23/2024 03:50:01 PM Interpretation: Performing Lab: Notes/Report: [facility] , Sodium 139 136-145 mmol/L Potassium 4.7 3.5-5.1 mmol/L Chloride 103 98-107 mmol/L Carbon Dioxide 26.3 21.0-32.0 mmol/L Anion Gap 14.4 Glucose 95 74-106 mg/dL Blood Urea Nitrogen 13.0 7.0-18.0 mg/dL Creatinine 1.02 0.70-1.30 mg/dL Estimated GFR ( Sue >60 >=60 mL/min/1.73m 2 Estimated GFR (Non- Gely >60 >=60 mL/min/1.73m 2 BUN Creatinine Ratio 12.7 Calcium 9.2 8.5-10.1 mg/dL Performing Lab: see note ML - [facility] PSA SCREENING Reviewed date:07/31/2024 11:29:35 AM Interpretation: Performing Lab: Notes/Report: [facility] , Prostate Specific Antigen Scrn 0.71 <=4.00 ng/mL Performing Lab: see note - [facility] INSULIN Reviewed date:08/02/2024 12:29:11 PM Interpretation: Performing Lab: Notes/Report: [facility] , Insulin 12.5 2.6-24.9 uIU/mL [address] [place], [place] [id number] Engineer Automated Equipment: Shant Magallanes PhD, Phone: [phone] Performed at: [facility] Performing Lab: see note LC - [facility] LB GLYCOHEMOGLOBIN A1C Reviewed date:07/31/2024 11:29:35 AM Interpretation: Performing Lab: Notes/Report: [facility] , Glycohemoglobin A1C 5.6 4.5-6.2 % ADA THERAPEUTIC TARGET < 7.0 > 7.0 ADA RECOMMENDED LIMIT 4.0 - 6.0 ACTION SUGGESTED Estimated Average Glucose 114 Performing Lab: see note ML - [facility] LB CBC AUTO DIFF Reviewed date:07/31/2024 11:29:35 AM Interpretation: Performing Lab: Notes/Report: [facility] , White Blood Count 6.8 4.0-11.0 10 3/uL Red Blood Count 4.79 4.70-6.10 10 6/uL Hemoglobin 16.4 14.0-18.0 g/dL Hematocrit 47.4 42.0-54.0 % Mean Corpuscular Volume 99.0 80.0-94.0 fL Mean Corpuscular Hemoglobin 34.2 25.9-34.0 pg Mean Corpuscular HGB Conc 34.6 29.9-35.2 g/dL Red Cell Distribution Width 11.9 11.0-15.0 % Platelet Count 221 150-450 10 3/uL Mean Platelet Volume 9.5 9.5-13.5 fL Neutrophils Percent Auto 51.3 43.0-75.0 % Lymphocytes Percent Auto 34.1 20.5-60.0 % Monocytes Percent Auto 11.6 1.7-12.0 % Eosinophils Percent Auto 1.6 0.9-7.0 % Basophils Percent Auto 1.0 0.2-2.0 % Immature Granulocytes Pct Auto 0.4 0.0-0.5 % Neutrophils Absolute Auto 3.5 1.4-6.5 10 3/uL Lymphocytes Absolute Auto 2.3 1.2-3.8 10 3/uL Monocytes Absolute Auto 0.8 0.3-0.8 10 3/uL Eosinophils Absolute Auto 0.1 0.0-0.7 10 3/uL Basophils Absolute Auto 0.1 0.0-0.1 10 3/uL Immature Granulocytes Abs Auto 0.03 0.00-0.03 10 3/uL Performing Lab: see note ML - [facility] LB BNP Reviewed date:07/31/2024 11:29:35 AM Interpretation: Performing Lab: Notes/Report: [facility] , NT Pro B Type Natriuretic Pept 65.0 <=900.0 pg/mL Performing Lab: see note ML - [facility] LB CA echo doppler complete Reviewed date:09/23/2024 03:50:01 PM Interpretation: Performing Lab: Notes/Report: Source Facility: [facility]-[address] [place] [address] [place] [address] Cardiology Report Signed Patient: RHETT EVNEGAS MR#: [id number] : 1970 Acct:[id number] Age/Sex: 54 / M ADM Date: 09/23/24 Loc: CARD Attending Dr: Leydi Chavez M.D. Ordering Physician: Leydi Chavez M.D. Date of Service: 09/23/24 Procedure(s): CA echo doppler complete Accession Number(s): [id number] cc: Chema Hill M.D.; Leydi Chavez M.D. Patient Name: RHETT VENEGAS MR#: [id number] : 1970 Exam Date: 09/23/2024 Ordering Doctor: DR. LEYDI CHAVEZ M.D. ECHOCARDIOGRAM REPORT PROCEDURE: CA ECHO DOPPLER COMPLETE INDICATIONS: Dyspnea on exertion, smoker, hypertension COMPARISON: None. DESCRIPTION: COMPLETE ECHOCARDIOGRAM Real-time transthoracic echocardiography with 2D, M-mode, spectral and color flow Doppler performed. QUALITY: Technical quality was good. LEFT VENTRICLE: Normal chamber size. Left ventricular wall thickness is mildly increased. LV EF: Global left ventricular systolic function is difficult to assess but appears preserved; visually estimated ejection fraction is 55%. Unable to assess regional wall motion abnormalities. DIASTOLIC: Unable to assess diastolic function. ATRIAL SEPTUM: Visually appears intact. LEFT ATRIUM: Normal chamber size. RIGHT ATRIUM: Mild dilatation. RIGHT VENTRICLE: Normal chamber size. Normal right ventricular systolic function. TRICUSPID VALVE: Normal mobility and thickness. No stenosis with no regurgitation. Unable to estimate right-sided pressures due to lack of measurable tricuspid regurgitation. MITRAL VALVE: Normal mobility and thickness. No evidence of mitral valve stenosis. There is no mitral annular calcification. No mitral regurgitation. AORTIC VALVE: Normal trileaflet appearance. Mildly calcified aortic valve. Normal leaflet mobility. No evidence of aortic valve stenosis. No aortic regurgitation. AORTIC ROOT: Normal diameter and appearance. PULMONIC VALVE: Normal thickness and mobility. No stenosis. No regurgitation. PERICARDIUM: Anterior free space; trivial effusion versus fat pad. IVC: IVC is dilated (2.2 cm), does not fully collapse. CONCLUSION: 1. Global left ventricular systolic function is difficult to assess but appears preserved; visually estimated ejection fraction is 55% 2. Normal right ventricular size and systolic function 3. Mildly increased left ventricular wall thickness 4. The left atrium is normal in size 5. No significant valvular abnormalities 6. Anterior free space; trivial effusion versus fat pad Adult Echocardiography Procedure Report Left Ventricle LVEDD (3.7 - 5.6 cm): 5.47 cm LVESD (2.2 - 4.0 cm): 4.57 cm LVIVS thickness (0.6 - 1.2 cm): 1.09 cm LVPW thickness (0.5 - 1.0 cm): 1.10 cm e': 0.08 m/s E - e': 11.09 LVOT Max Gradient: 6.39 mm[Hg] LVOT Area (cm2): 1.26 m/s Peak Velocity (LVOT): 1.26 m/s Mean Velocity (LVOT): 0.85 m/s LVOT Diameter 2.10 cm Left Atrium LA Volume Index (2D A2C): 26.45 ml/m2 Left Atrium Systolic Dimension: 3.35 cm Mitral Valve MV E to A Ratio: 0.92 Mitral Valve A-Wave Peak Velocity: 1.00 m/s Mitral Valve E-Wave Peak Velocity: 0.92 m/s Right Ventricle Aorta AO Root Diam: 3.42 cm Aortic Valve AoV Area (Peak Hollis): 2.55 cm2, 2.55 cm2 AoV Area (VTI): 2.61 cm2, 2.61 cm2 Peak Velocity(Antegrade Flow): 1.71 m/s Peak Gradient(Antegrade Flow): 11.68 mm[Hg] Mean Velocity(Antegrade Flow): 1.11 m/s Mean Gradient(Antegrade Flow): 5.75 mm[Hg] Velocity Time Integral: 29.66 cm Tricuspid Valve Pulmonic Valve Mean Gradient: 1.84 mm[Hg] Mean Velocity: 0.62 m/s Peak Velocity: 0.97 m/s, 0.92 m/s Peak Gradient: 3.37 mm[Hg], 3.75 mm[Hg] Right Atrium Right Atrium Systolic Pressure: 69.55 ml, 69.55 ml Dictated by: Cindy Tomas M.D. on 09/23/2024 at 13:18 Approved by: Cindy Tomas M.D. on 09/23/2024 at 13:22 Dictated By: Cindy Tomas M.D. Signed By: 09/23/24 1324 DD/ 1322 TD/TT: Rn Document Improvement Specialist: [place] [address] Cardiology Report Signed Patient: RUTH VENEGAS MR#: [id number] : 1970 Acct:[id number] Age/Sex: 54 / M ADM Date: 09/23/24 Loc: CARD Attending Dr: Leydi Chavez M.D. Ordering Physician: Leydi Chavez M.D. Date of Service: 09/23/24 Procedure(s): CA ech o doppler complete Accession Number(s): [id number] cc: Chema Hill M.D. ; Leydi Chavez M.D. Patient Name: RHETT VENEGAS MR#: [id number] : 1970 Exam Date: 09/23/2024 Ordering Doctor: DR. LEYDI CHAVEZ M.D. ECHOCARDIOGRAM REPORT PROCEDURE: CA ECHO DOPPLER COMPLETE INDICATIONS: Dyspnea on exertion, smoker, hypertension COMPARISON: None. DESCRIPTION: COMPLET E ECHOCARDIOGRAM Real-time transthoracic echocardiography wit h 2D, M-mode, spectral and color flow Doppler performed. QUALITY: Technical quality was good. LEFT VENTRICLE: Norm al chamber size. Left ventricular wall thickness is mildly increased. LV EF: Global left ventricular systolic function is difficult to assess but appears preserve d; visually estimated ejection fraction is 55%. Unable to assess regional wall motion abnormalities. DIASTOLIC: Unable to assess diastolic function. ATRIAL SEPTUM: Visua lly appears intact. LEFT ATRIUM: Normal chamber size. RIGHT ATRIUM: Mild dilatation. RIGHT VENTRICLE: Nor mal chamber size. Normal right ventricular systolic function. TRICUSPID VALVE: Nor mal mobility and thickness. No stenosis with no regurgitation. Unabl e to estimate right-sided pressures due to lack of measurable tricuspid regurgitation. MITRAL VALVE: Normal mobility and thickness. No evidence of mitral valve stenosis. There is n o mitral annular calcification. No mitral regurgitation. AORTIC VALVE: Normal trileaflet appearance. Mildly calcified aortic valve. Normal leaflet mobil ity. No evidence of aortic valve stenosis. No aortic regurgitation. AORTIC ROOT: Normal diameter and appearance. PULMONIC VALVE: Norm al thickness and mobility. No stenosis. No regurgitation. PERICARDIUM: Anterio r free space; trivial effusion versus fat pad. IVC: IVC is dilated (2.2 cm), does not fully collapse. CONCLUSION: 1. Global left ventricular systolic function is difficult to assess but appears preserved; visually estimated ejection fraction is 55% 2. Normal right ventricular size and systolic function 3. Mildly increased left ventricular wall thickness 4. The left atrium i s normal in size 5. No significant valvular abnormalities 6. Anterior free spa ce; trivial effusion versus fat pad Adult Echocardiograp hy Procedure Report Left Ventricle LVEDD (3.7 - 5.6 cm) : 5.47 cm LVESD (2.2 - 4.0 cm) : 4.57 cm LVIVS thickness (0.6 - 1.2 cm): 1.09 cm LVPW thickness (0.5 - 1.0 cm): 1.10 cm e': 0.08 m/s E - e': 11.09 LVOT Max Gradient: 6 .39 mm[Hg] LVOT Area (cm2): 1.2 6 m/s Peak Velocity (LVOT) : 1.26 m/s Mean Velocity (LVOT) : 0.85 m/s LVOT Diameter 2.10 cm Left Atrium LA Volume Index (2D A2C): 26.45 ml/m2 Left Atrium Systolic Dimension: 3.35 cm Mitral Valve MV E to A Ratio: 0.92 Mitral Valve A-Wave Peak Velocity: 1.00 m/s Mitral Valve E-Wave Peak Velocity: 0.92 m/s Right Ventricle Aorta AO Root Diam: 3.42 cm Aortic Valve AoV Area (Peak Hollis): 2.55 cm2, 2.55 cm2 AoV Area (VTI): 2.61 cm2, 2.61 cm2 Peak Velocity(Antegr kenia Flow): 1.71 m/s Peak Gradient(Antegr kenia Flow): 11.68 mm[Hg] Mean Velocity(Antegr kenia Flow): 1.11 m/s Mean Gradient(Antegr kenia Flow): 5.75 mm[Hg] Velocity Time Integr al: 29.66 cm Tricuspid Valve Pulmonic Valve Mean Gradient: 1.84 mm[Hg] Mean Velocity: 0.62 m/s Peak Velocity: 0.97 m/s, 0.92 m/s Peak Gradient: 3.37 mm[Hg], 3.75 mm[Hg] Right Atrium Right Atrium Systoli c Pressure: 69.55 ml, 69.55 ml Dictated by: Cindy Tomas M.D. on 09/23/2024 at 13:18 Approved by: Cindy Tomas M.D. on 09/23/2024 at 13:22 Dictated By: Cindy Tomas M.D. Signed By: 09/23/24 1324 DD/ 132 TD/TT: Rn Document Improvement Specialist: Occult Blood* Reviewed date:08/02/2024 12:29:11 PM Interpretation: Performing Lab: Notes/Report: [facility] , Occult Blood Positive Performing Lab: see note ML - [facility] LB Reason For Referral Diagnosis 1 Positive occult stoo l blood test (R19.5) Referral Organization [facility] Referring Provider First Name Curly Referring Provider Last Name Liz Referring Provider [facility] obed Referred Provider Bar Laboy Referred Provider Specialty General Surg emani Referral Priority Routine Diagnosis 1 Chest pain (R07.9) Referral Organization [facility] Referring Provider First Name Curly Referring Provider Last Name Liz Referring Provider [facility] Referred Provider [facility] Cardiology, [facility] Referred Provider Specialty Cardiology Referral Priority Routine Medications Medication SIG (Take, Route, Frequency, Duration) Notes Start Date End Date Status Aspirin 81 MG 1 tablet Orally Once a day for 30 days 07/29/2024 Unknown Losartan Potassium 100 MG 1 tablet Orall y Once a day Active Farxiga 10 MG 1 tablet Orally Once a day Active Coreg 25 MG 1 tablet with food Orally Twice a day Active Metoprolol Tartrate 50 MG 1 tablet with food Orally Twice a day for 30 days Unknown Irbesartan 300 MG 1 tablet Orally Once a day for 30 days Unknown Syrnaeqd-Bwylvtfbv-Jtcdvoug 3.5-02262-4.1 1 drop into affected eye Ophthalmic Four times a day for 7 days 07/29/2024 Unknown amLODIPine Besylate 10 MG 1 tablet Orall y Once a day for 30 days Active Isosorbide Mononitrate ER 120 MG 1 tablet in the morning Orally Once a day 11/10/2024 Active Viagra 100 MG 1 tablet as needed Orally Once a day for 30 day(s) 12/25/2023 Active Rosuvastatin Calcium 20 MG 1 tablet Oral ly Once a day 11/10/2024 Active Trelegy Ellipta 100-62.5-25 MCG/ACT 1 puff Inhalation Once a day for 30 01/01/2023 Unknown Nitroglycerin 0.4 MG 1 sl Sublingual Q 5 min as needed for chest pain 07/29/2024 Active Social History Tobacco Use: Social History Observation Description Date Details (start date - stop date) Current Smoker NA - NA Tobacco Control (Standard) Question Answer Notes Tobacco use: Current smoker How often do you smoke cigarettes? Every day How many cigarettes a day do you smoke? 31 or mo re How soon after you wake up d o you smoke your first cigarette? Within 5 minutes Are you interested in quitting? Thinking about q uitting Problems Problem Type SNOMED Code ICD Code Onset Dates Problem Status W/U Status Risk Notes Problem 421295343 Obesity, unspeci fied (E66.9) Active confirmed Problem 549366265 Shortness of horace ath (R06.02) Active confirmed Problem 433389497 skilled nursing (curre nt) use of inhaled steroids (Z79.51) Active confirmed Problem Psoriasis (6469474) Psoriasis (L40.9) Active confirmed Problem Hypertension (70530469) Hypertension (I10) Active confirmed Problem COPD - Chronic obstructive pulmonary disease (59146927) COPD (chronic obstructive pulmonary disease) (J44.9) Active confirmed Problem Dyspnea (470025289) SOB (shortness of breath) (R06.02) Active confirmed Problem Anxiety (74370950) Anxiety (F41.9) Active confirmed Problem Essential hypertension (80026821) Essential hypertension (I10) Active confirmed Problem Obstructive sleep apnea (78877964) Obstructive sleep apnea (G47.33) Active confirmed Problem Psoriatic arthritis (399321124) Psoriatic arthritis (L40.50) Active confirmed Problem Well adult (069661750) Well adult (Z00.00) Active confirmed Problem Mental disorder caused by drug (951814901) Cigarette nicotine dependence with nicotine-induced disorder (F17.219) Active confirmed Problem Alcoholism (5962662) Alcoholism (F10.20) Active confirmed Problem 921267250 Body mass index [BMI] 36.0-36.9, adult (Z68.36) Active confirmed Problem 004551317 skilled nursing (curre nt) use of immunosuppressive biologic (Z79.620) Active confirmed Humira Vital Signs Blood pressure diastolic 118 mm Hg 07/29/2024 Height 71 in 07/29/2024 Blood pressure systolic 168 mm Hg 07/29/2024 Weight 262 lbs 07/29/2024 BMI 36.54 kg/m2 07/29/2024 Procedures Procedure Date Ordered Date Performed Result Body Sit e CARDIO Stress Test - Cardiolite 07/29/2024 N/A Encounters Encounter Location Date Provider Diagnosis [place] [address] [place] [address] 07/31/2024 Curly Hill [place] [address] [place] [address] 08/02/2024 Curly Hill Positive occult stoo l blood test R19.5 [address] [place] [address] 08/03/[address] [facility] [address] [place] [address] 08/12/2024 Curly Berriosy Chest pain R07.9 [address] [place] [address] 08/28/2024 Curly Hill Essential hypertensi on I10 and Hypertension I10 [facility] [address] [place] [address] 11/10/[address] [facility] [address] [place] [address] 01/05/2025 Curly Hill Cigarette nicotine dependence with nicotine-induced disorder F17.219 [facility] [address] [place] [address] 07/29/2024 Curly Hill Essential hypertensi on I10 ; COPD (chronic obstructive pulmonary disease) J44.9 ; Well adult Z00.00 ; Body mass index [BMI] 36.0-36.9, adult Z68.36 and Chest pain R07.9 Assessments Encounter Date Diagnosis (ICD Code) Assessment Notes Treatment Notes Treatment Clinical Notes Section Notes 07/29/2024 Essential hypertension (ICD-10 - I10) 07/29/2024 COPD (chronic obstructive pulmonary disease) (ICD-10 - J44.9) 07/29/2024 Well adult (ICD-10 - Z00.00) 08/02/2024 Positive occult stool blood test (ICD-10 - R19.5) 08/12/2024 Chest pain (ICD-10 - R07.9) 08/28/2024 Essential hypertension (ICD-10 - I10) 01/05/2025 Cigarette nicotine dependence with nicotine-induced disorder (ICD-10 - F17.219) 08/28/2024 Hypertension (ICD-10 - I10) 07/29/2024 Body mass index [BMI] 36.0-36.9, adult (ICD-10 - Z68.36) 07/29/2024 Chest pain (ICD-10 - R07.9) Plan Of Treatment Pending Test Test Name Order Date CMP (COMPLETE METABOLIC PANEL) CMP (COMPLETE METABOLIC PANEL) HEMOGLOBIN A1C (GLYCO) 12/25/2023 HEMOGLOBIN A1C (GLYCO) 07/29/2024 INSULIN, TOTAL 12/25/2023 INSULIN, TOTAL 07/29/2024 LIPID PANEL (CHOL/TRIG/HDL/LDL) 07/29/20 LIPID PANEL (CHOL/TRIG/HDL/LDL) 12/25/19 CBC WITH DIFF 12/25/2023 CBC WITH DIFF 07/29/2024 PSA, PROSTATE-SPECIFIC ANTIGEN CARDIO Stress Test - Cardiolite 07/29/20 Cardiolyte Stress Test 01/15/2024 CT Chest Low Dose for Screening* 025 CT Chest Low Dose for Screening* 024 PSA, TOTAL 07/29/2024 High Sensitivity Troponin 07/29/2024 STOOL OCCULT BLOOD 07/29/2024 STOOL OCCULT BLOOD 12/25/2023 TESTOSTERONE, TOTAL 12/25/2023 THYROID PANEL (T4/TSH/FREE T3) 4 THYROID PANEL (T4/TSH/FREE T3) 4 Insurance Providers Payer Name Payer Address Payer Phone Subscriber Number Group Number Insured Name Patient Relationship to Insured Coverage Start Date Coverage End Date ANTHEM ACCESS PPO PLUS LOCAL PLAN [address] [place] [phone] [id number] Rhett Venegas Self - patient is the insured Medical (General) History Medical History History ICD Code Cigarette nicotine dependence with nicot ine-induced disorder F17.219 Obstructive sleep apnea G47.33 Essential hypertension I10 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
[2025-04-02 09:59] LABS: Alanine Aminotransferase 52 U/L (16-63); Anion Gap 11.0; Aspartate Amino Transferase 25 U/L (15-37); Blood Urea Nitrogen 13.0 mg/dL (7.0-18.0); Calcium 9.0 mg/dL (8.5-10.1); Carbon Dioxide 28.5 mmol/L (21.0-32.0); Chloride 104 mmol/L (98-107); Cholesterol 235 mg/dL (<=200); Estimated GFR (African America >60 (>=60 mL/min/1.73m^2); Estimated GFR (Non-African Ame >60 (>=60 mL/min/1.73m^2); Glucose 112 mg/dL (74-106); HDL Cholesterol 63 mg/dL (40-60); Potassium 4.5 mmol/L (3.5-5.1); Sodium 139 mmol/L (136-145); Triglycerides 158 mg/dL (<=150); VLDL CHOLESTEROL 31.6 mg/dL
== END 2025-04-02 09:24 | disposition home or self-care (01) ==
LOC: LAB 09:27
PROVIDERS: PCP Family Medicine; Visit Provider Internal Medicine Cardiovascular Disease
DX: E78.5 Hyperlipidemia, unspecified (principal); I50.32 Chronic diastolic (congestive) heart failure
CPT/HCPCS: 36415; 80048; 80061; 84450; 84460

== ENCOUNTER 2025-08-25 10:54 | Outpatient (OUT) | payer BC, SELFPAY ==
--- OUTSIDE RECORDS SUMMARY | 2025-08-25 10:59 | XMS_ITS | Patient Health Record ---
Author Organization [facility] [place] Address [address] [place] [address] Care Team Providers Care Field Marketing Lead Name Role Phone Curly Hill Primary Care Provider [phone] Allergies Allergen (clinical drug ingredient) Drug/Non Drug Allergy documented on EMR Reaction Allergy Type Onset Date Status Substance with sulfonamide structure and antibacterial mechanism of action (substance) Sulfa Antibiotics Dr Valero told dont take- red head Drug Allergy Active Results Component Value Reference Range Notes CBC AUTO DIFF Reviewed date:09/23/2024 03:50:01 PM Interpretation: Performing Lab: Notes/Report: [facility] , White Blood Count 6.1 4.0-11.0 10 3/uL Red Blood Count4.564.70-6.10 10 6/tMDdxlbenjsk39.614.0-18.0 g/oTFnglevcppr50.2 42.0-54.0 %Mean Corpuscular Npxgyj55.180.0-94.0 fLMean Corpuscular Hemoglobin 34.225.9-34.0 pgMean Corpuscular HGB Conc34.529.9-35.2 g/dLRed Cell Distribution Width11.911.0-15.0 %Platelet Jhwli659196-057 10 3/uLMean Platelet Volume9.29.5- 13.5 fLNeutrophils Percent Auto45.843.0-75.0 %Lymphocytes Percent Auto37.820.5- 60.0 %Monocytes Percent Auto11.91.7-12.0 %Eosinophils Percent Auto2.10.9-7.0 % Basophils Percent Auto1.70.2-2.0 %Immature Granulocytes Pct Auto0.70.0-0.5 % Neutrophils Absolute Auto2.81.4-6.5 10 3/uLLymphocytes Absolute Auto2.31.2-3.8 10 3/uLMonocytes Absolute Auto0.70.3-0.8 10 3/uLEosinophils Absolute Auto0.10.0- 0.7 10 3/uLBasophils Absolute Auto0.10.0-0.1 10 3/uLImmature Granulocytes Abs Auto0.040.00-0.03 10 3/uLPerforming Lab:see note - [facility] LB SGPT Reviewed date:04/04/2025 08:26:25 PM Interpretation: Performing Lab: Notes/Report: [facility] ,Alanine Zabzqtzieqwemlds9377-24 U/LPerforming Lab:see note - [facility] LBSGOT Reviewed date:04/04/2025 08:26:25 PM Interpretation: Performing Lab: Notes/Report: [facility] ,Aspartate Amino Xeiubsauhzb7990-95 U/LPerforming Lab:see note - [facility] LBPROF CHEM 8 (BAS METB) Reviewed date:04/04/2025 08:26:25 PM Interpretation: Performing Lab: Notes/Report: [facility] ,Osyxcy479096-844 mmol/LPotassium4.53.5-5.1 mmol/MUexzgvjy11288-171 mmol/LCarbon Sumhgog86.521.0-32.0 mmol/LAnion Gap11.4Itpsavb66512-276 mg/dLBlood Urea Crijtdlm82.07.0-18.0 mg/dLCreatinine0.790.70-1.30 mg/dLEstimated GFR ( Sue>60>=60 mL/min/1.73m 2Estimated GFR (Non- Gely>60>=60 mL/min/1.73m 2BUN Creatinine Ratio16.3Norqyzo5.08.5-10.1 mg/dLPerforming Lab:see note - [facility] LBLIPID PROFILE Reviewed date:04/04/2025 08:26:25 PM Interpretation: Performing Lab: Notes/Report: [facility] ,Dpgzsxxjyrllt959<=150 mg/yTXijusyjgnxx479<=200 mg/dLHDL Rpzjabyantm9248-38 mg/dL > or =60 mg/dl - LOW CARDIOVASCULAR RISK <40 mg/dl - HIGH CARDIOVASCULAR RISK LDL Cholesterol Qtmwhciyee314.0 <100 mg/dl OPTIMAL 100-129 mg/dl NEAR OR ABOVE OPTIMAL 130-159 mg/dl BORDERLINE HIGH 160-189 mg/dl HIGH >190 mg/dl VERY HIGH VLDL XUDSNFWDFSO26.6Chol HDL Ratio3.7 3.3 - 4.4 LOW RISK 4.4 - 7.1 AVERAGE RISK 7.1 - 11.0 MODERATE RISK >11.0 HIGH RISK Performing Lab:see noteML - [facility] LBCA echo doppler complete Reviewed date:09/23/2024 03:50:01 PM Interpretation: Performing Lab: Notes/Report: Source Facility: [place] [address] Cardiology Report Signed Patient: RHETT VENEGAS MR#: [id number] : 1970 Acct:[id number] Age/Sex: 54 / M ADM Date: 09/23/24 Loc: CARD Attending Dr: Leydi Chavez M.D. Ordering Physician: Leydi Chavez M.D. Date of Service: 09/23/24 Procedure(s): CA echo doppler complete Accession Number(s): [id number] cc: Chema Hill M.D.; Leydi hCavez M.D. Patient Name: RHETT VENEGAS MR#: [id number] : 1970 Exam Date: 09/23/2024 Ordering Doctor: [...] Signed By: 09/23/24 1324 DD/ 1322 TD/TT: Car Repairer Apprentice:PROF ORLANDO Andujar ([facility]) Reviewed date:09/23/2024 03:50:01 PM Interpretation: Performing Lab: Notes/Report: [facility] ,Znmftb213344-965 mmol/LPotassium4.73.5-5.1 mmol/QTuhejxqr18216-183 mmol/LCarbon Imdfhvb78.321.0-32.0 mmol/LAnion Gap14.5Mqoaheb8025-772 mg/dLBlood Urea Gxegqeyi75.07.0-18.0 mg/dLCreatinine1.020.70-1.30 mg/dLEstimated GFR ( Sue>60>=60 mL/min/1.73m 2Estimated GFR (Non- Gely>60>=60 mL/min/1.73m 2BUN Creatinine Ratio12.1Ikmxofw4.28.5-10.1 mg/dLPerforming Lab:see noteML - [facility] LB Reason For Referral No Information Medications Medication SIG (Take, Route, Frequency, Duration) Notes Start Date End Date Status Aspirin 81 MG 1 tablet Orally Once a day; Dura tion: 30 days 07/29/2024UnknownLosartan Potassium 100 MG1 tablet Orally Once a dayActive Farxiga 10 MG1 tablet Orally Once a dayActiveCoreg 25 MG1 tablet with food Orally Twice a dayActiveMetoprolol Tartrate 50 MG1 tablet with food Orally Twice a day; Duration: 30 daysUnknownIrbesartan 300 MG1 tablet Orally Once a day; Duration: 30 ojfxEfaygtdHlsalcoq-Vmcstcqlt-Wqnrjshk 3.5-90924-5.11 drop into affected eye Ophthalmic Four times a day; Duration: 7 days07/29/2024Unknown amLODIPine Besylate 10 MG1 tablet Orally Once a day; Duration: 30 daysActive Isosorbide Mononitrate ER 120 MG1 tablet in the morning Orally Once a day 5ActiveViagra 100 MG1 tablet as needed Orally Once a day; Duration: 30 day(s)12/25/2023ctiveRosuvastatin Calcium 20 MG1 tablet Orally Once a day 5ActiveTrelegy Ellipta 100-62.5-25 MCG/ACT1 puff Inhalation Once a day; Duration: UnknownNitroglycerin 0.4 MG1 sl Sublingual Q 5 min as needed for chest pain07/29/2024ctive Social History Tobacco Use: Social History Observation Description Date Details (start date - stop date) Current Smoker NA - NA Tobacco Control (Standard) Question Answer Notes Tobacco use: Current smoker How often do you smoke cigarettes?Every dayHow many cigarettes a day do you smoke?31 or moreHow soon after you wake up do you smoke your first cigarette? Within 5 minutesAre you interested in quitting?Thinking about quitting Problems Problem Type SNOMED Code ICD Code Onset Dates Problem Status W/U Status Risk Notes Problem Obesity (289811178) Obesity, unspecified (E66.9) ActiveconfirmedProblemShortness of breath (081728012)Shortness of breath (R06.02)ActiveconfirmedProblemLong-term current use of inhaled steroid (860224700)custodial (current) use of inhaled steroids (Z79.51)Activeconfirmed ProblemPsoriasis (4775638)Psoriasis (L40.9)ActiveconfirmedProblemHypertension (22682827)Hypertension (I10)ActiveconfirmedProblemCOPD - Chronic obstructive pulmonary disease (37604095)COPD (chronic obstructive pulmonary disease) (J44.9) ActiveconfirmedProblemDyspnea (922573654)SOB (shortness of breath) (R06.02) ActiveconfirmedProblemAnxiety (42681862)Anxiety (F41.9)ActiveconfirmedProblem Essential hypertension (71375292)Essential hypertension (I10)Activeconfirmed ProblemObstructive sleep apnea (53622623)Obstructive sleep apnea (G47.33)Active confirmedProblemPsoriatic arthritis (434667230)Psoriatic arthritis (L40.50) ActiveconfirmedProblemWell adult (626339749)Well adult (Z00.00)Activeconfirmed ProblemMental disorder caused by drug (649942549)Cigarette nicotine dependence with nicotine-induced disorder (F17.219)ActiveconfirmedProblemAlcoholism (8083448)Alcoholism (F10.20)ActiveconfirmedProblemBody mass index 35.00 to 39.99 (666304763017078)Body mass index [BMI] 36.0-36.9, adult (Z68.36)Activeconfirmed ProblemLong term (current) use of immunosuppressive biologic (Z79.620)Active confirmedHumira Encounters Encounter Location Date Provider Diagnosis [facility] [address] [place] [address] 08/28/2024 Curly Hill Essential hypertensi on I10 and Hypertension I10 [facility] [address] [place] [address] 11/10/2024 Curly Berriosy [facility] [place] [address] 01/05/2025Doug HoyCigarette nicotine dependence with nicotine-induced disorder F17.219 Assessments Encounter Date Diagnosis (ICD Code) Assessment Notes Treatment Notes Treatment Clinical Notes Section Notes 08/28/2024 Essential hypertension (ICD-10 - I10) 01/05/2025igarette nicotine dependence with nicotine-induced disorder (ICD-10 - F17.219)08/28/2024Hypertension (ICD-10 - I10) Plan Of Treatment Pending Test Test Name Order Date CMP (COMPLETE METABOLIC PANEL) 4 CMP (COMPLETE METABOLIC PANEL) 4 HEMOGLOBIN A1C (GLYCO) 12/25/2023 HEMOGLOBIN A1C (GLYCO) 07/29/2024 INSULIN, TOTAL 12/25/2023 INSULIN, TOTAL 07/29/2024 LIPID PANEL (CHOL/TRIG/HDL/LDL) 07/29/20 LIPID PANEL (CHOL/TRIG/HDL/LDL) 12/25/19 CBC WITH DIFF (EXP 07/2025) 12/25/2023 CBC WITH DIFF (EXP 07/2025) 07/29/2024 PSA, PROSTATE-SPECIFIC ANTIGEN CARDIO Stress Test - Cardiolite 07/29/20 Cardiolyte Stress Test 01/15/2024 CT Chest Low Dose for Screening* 025 CT Chest Low Dose for Screening* 024 PSA, TOTAL 07/29/2024 High Sensitivity Troponin 07/29/2024 STOOL OCCULT BLOOD 07/29/2024 STOOL OCCULT BLOOD 12/25/2023 TESTOSTERONE, TOTAL 12/25/2023 THYROID PANEL (T4/TSH/FREE T3) THYROID PANEL (T4/TSH/FREE T3) 4 Insurance Providers Payer Name Payer Address Payer Phone Subscriber Number Group Number Insured Name Patient Relationship to Insured Coverage Start Date Coverage End Date ANTHEM ACCESS PPO PLUS LOCAL PLAN [address] [place] [phone] [id number] Shirley Venegas - patient is the insured Medical (General) [...] Psoriasis L40.9 hypertriglyceridemia Surgical History Surgery Date(Month/Year) Sinus surgery Bilateral carpal tunnelHeart Cath09/29/2024Right inguinal (direct & indirect) herniorrhaph10/02/2017Right hydrocelectomy09/20/2016
--- OUTSIDE RECORDS SUMMARY | 2025-08-25 10:59 | XMS_ITS | Clinical Summary ---
Author Organization [facility] Address [address] [place] [address] Care Team Providers Care Vocal Music Teacher Name Role Phone Chema Hill MD Primary Care Provider [phone] Allergies Active AllergyReactionsCriticalityNoted DateCommentsSulfa (Sulfonamide Antibiotics)Low09/21/2022 Medications MedicationSigDispense QuantityRefillsLast FilledStart DateEnd DateStatus aspirin 81 mg chewable tablet Chew 81 mg in the morning.Active nitroglycerin (Nitrostat) 0.[address] 0.4 mg under the tongue.08/06/2024ctive amLODIPine (Norvasc) 10 mg tablet Indications:Hypertensive emergencyTake 1 tablet (10 mg) by mouth once daily as directed for 360 doses. 90 tablet /ctive carvedilol (Coreg) 25 mg tablet Indications:Chronic heart failure with preserved ejection fraction (CMS/HCC)Take 1 tablet (25 mg) by mouth with breakfast and with evening meal. 180 tablet /ctive dapagliflozin propanediol (Farxiga) 10 mg Indications:Chronic heart failure with preserved ejection fraction (CMS/HCC)Take 1 tablet (10 mg) by mouth once daily as directed. 90 tablet /ctive isosorbide mononitrate ER (Imdur) 120 mg 24 hr tablet Indications:Chronic heart failure with preserved ejection fraction (CMS/HCC)Take 1 tablet (120 mg) by mouth once daily as directed for 360 doses. Do not crush or chew. 90 tablet /ctive losartan (Cozaar) 100 mg tablet Indications:Hypertensive emergencyTake 1 tablet (100 mg) by mouth once daily as directed. 90 tablet ctive rosuvastatin (Crestor) 20 mg tablet Indications:Hyperlipidemia, unspecified hyperlipidemia typeTake 1 tablet (20 mg) by mouth at bedtime. 90 tablet ctive Active Problems ProblemNoted DateDiagnosed DateLong term (current) use of immunosuppressive /28/2025Long term current use of inhaled jsbjocv8406/29/2025Nicotine dependence, cigarettes, with unspecified nicotine-induced /28/2025 Chronic heart failure with preserved ejection pokivemt32/02/2025oronary artery disease involving [place]ila river coronary artery of gila river heart with unstable angina cwgvmlol22/05/2025 Assessment & Plan (10/07/2024 10:19 AM EST): Stat EKG Stat troponin Cardiology consulted Continue heparin and nitroglycerin gtts Abnormal cardiovascular stress test09/03/2024DOE (dyspnea on exertion)09/03/2024 Ljfnvxffnp64/30/2024 Assessment & Plan (10/07/2024 10:19 AM EST): Last drink last night reports history of withdrawal requiring ICU CIWA protocol ordered Phbttgf4908/31/2024hronic obstructive pulmonary idzrcwl2408/31/2024MI 37.0-37.9, adult08/31/20243293Dlogebkegnlgkv29/30/2024Obstructive sleep apnea08/31/2024Occult blood in gnupkx036600Qvbnmpxvt94/30/2024soriatic hkjjgjlxa66/30/2024Tobacco user08/31/2024 Assessment & Plan (10/07/2024 9:41 AM EST): Encourage cessation Admit to stepdown Ambulate as tolerated Continuous telemetry N.p.o. in case of heart cath today If no invasive procedures planned by cardiology, can have cardiac diet Daily BMP and CBC to evaluate for kidney function, lites lites, hemoglobin and WBC Case will be discussed with attending physician Essential zjpdyqmufugn22/04/2023 Assessment & Plan (10/07/2024 10:19 AM EST): Continue metoprolol, amlodipine Resolved Problems ProblemNoted DateDiagnosed DateResolved DateAngina pectoris, szvafyfn39/02/2025 11/01/2024 Family History Medical HistoryRelationNameCommentsCoronary artery diseaseMothercoronary stent MotherRelationNameStatusCommentsMother Social History Tobacco UseTypesPacks/DayYears UsedDateSmoking Tobacco: Every DayCigarettes Smokeless Tobacco: Former Tobacco Cessation:Ready to Q uit: Not Asked; Counseling Given: Not Answered Alcohol UseStandard Drinks/QpmdAdkqihkoVxw88 (1 standard drink = 0.6 oz pure alcohol)heavy 6-10 beers per dayAH UtilitiesAnswerDate RecordedIn the past 12 months has the [place], gas, oil, or water [employer] threatened to shut off services in your home?No10/07/2024Humiliation, Afraid, Rape, and Kick questionnaireAnswerDate RecordedWithin the last year, have you been afraid of your partner or ex-partner?No10/07/2024Emotionally AbusedNot on file10/07/2024 Physically AbusedNot on file10/07/2024Sexually AbusedNot on file10/07/2024 Overall Financial Resource Strain (CARDIA)AnswerDate RecordedHow hard is it for you to pay for the very basics like food, housing, medical care, and heating?Not hard at all10/07/2024UT Safety & EnvironmentAnswerDate RecordedFear of Current or Ex-PartnerNot on file10/24/2023Emotionally AbusedNot on file10/24/2023 Physically AbusedNot on file10/24/2023Sexually AbusedNot on file10/24/2023 Physically or Sexually AbusedNot on file10/24/2023TransportationAnswerDate RecordedIn the past 12 months, has lack of transportation kept you from medical appointments or from getting medications?No10/07/2024Lack of Transportation (Non-Medical)Not on file10/07/2024Housing Stability Vital SignAnswerDate RecordedIn the last 12 months, was there a time when you were not able to pay the mortgage or rent on time?No10/07/2024In the past 12 months, how many times have you moved where you were living?t any time in the past 12 months, were you homeless or living in a half-way (including now)?No10/07/2024 Hunger Vital SignAnswerDate RecordedWithin the past 12 months, you worried that your food would run out before you got the money to buymore.Never true10/07/2024 Ran Out of Food in the Last YearNot on file10/07/2024Sex and Gender Information ValueDate RecordedSex Assigned at LzaeqCsxz95/06/2025 2:23 PM ESTLegal SexMale 09/18/2022 10:23 AM ESTGender BclbdyzsBunb18/06/2025 2:23 PM ESTSexual OrientationHeterosexual or Sbynpxmd95/06/2025 2:23 PM EST Last Filed Vital Signs Vital SignReadingTime TakenCommentsBlood Qdhahufv154/0909810/21/2024 11:45 AM EST Oidip967010/21/2024 11:21 AM ULHIfsiashcymk44.7 ??C (98 ??F)10/09/2024 12:05 PM ESTRespiratory Kocl266010/09/2024 12:05 PM ESTOxygen Eucegticwv37%10/21/2024 11:21 AM ESTInhaled Oxygen Concentration--Jvgrqw943 kg (271 lb)10/21/2024 11:21 AM EST Fywpfb538.3 cm (5' 11 )10/21/2024 11:21 AM ESTBody Mass Index37.802 11:21 AM EST Plan of Treatment DateTypeDepartmentCare Team (Latest Contact Info)Hxydvarrtqd66/02/2026 2:00 PM ESTOffice Visit [facility] [address] [place] [address] Miky Waddell, [employer] [address] [place] [address] Health MaintenanceDue DateLast DoneCommentsCT Oyvnrhhjdhhx1971Colonoscopy 1971Colorectal Cancer Yosileqfs1971FIT-DNA1971FIT1971 FOBT1971 2873Wulminlhammvd1971Depression Gttddsjhw50/01/1983Hepatitis B Vaccines (1 of 3 - 19+ 3-dose series)1990Pneumococcal Vaccine: Pediatrics (0 to 5 Years) and At-Risk Patients (6 to 64 Years) (1 of 2 - PCV)1990 Adult Eukzngr5605/03/1993Zoster Vaccines (1 of 2)2021OVID-19 Vaccine (1 - 2024- season)2025Influenza Vaccine (#1)2025HIB VaccinesAged OutNo longer eligible based on patient's age to complete this topicHPV VaccinesAged OutNo longer eligible based on patient's age to complete this topicIPV Vaccines Aged OutNo longer eligible based on patient's age to complete this topic Meningococcal B VaccineAged OutNo longer eligible based on patient's age to complete this topicMeningococcal VaccineAged OutNo longer eligible based on patient's age to complete this topicRotavirus VaccinesAged OutNo longer eligible based on patient's age to complete this topic Insurance Advance Directives * Full Code (Latest Code Status on File) Date ActivatedDate InactivatedComments10/07/2024 9:36 AM10/09/2024 2:41 PM Care Teams Team MemberRelationshipSpecialtyStart DateEnd Date Chema Hill MD [address] [facility] [address] [place] [address] [facility] - General09/18/22
--- OUTSIDE RECORDS SUMMARY | 2025-08-25 10:59 | XMS_ITS | Clinical Summary ---
Author Organization [employer] tem Address [id number] [address] [place] [address] Care Team Providers Care Vehicle Return Associate Name Role Phone Chema Hill MD Primary Care Provider [phone] Allergies Active AllergyReactionsCriticalityNoted DateCommentsSulfa (Sulfonamide Antibiotics)Low09/21/2022 Medications MedicationSigDispense QuantityRefillsLast FilledStart DateEnd DateStatus adalimumab (HUMIRA,CF, PEN) 40 mg/0.4 mL pen injector kit 09/04/2022ctive aspirin 325 mg tablet Take 1 tablet (325 mg total) by mouth in the morning.Active benzocaine-menthoL (CHLORASEPTIC SORE THROAT) 6-10 mg lozenge Dissolve 1 lozenge in the mouth every 2 (two) hours as needed for sore throat. 100 tablet 12/10/2022ctive albuterol (PROVENTIL HFA;VENTOLIN HFA) 90 mcg/actuation inhaler Indications:BronchitisInhale 2 puffs every 4 (four) hours as needed for wheezing. 18 g 12/10/2022ctive metoprolol tartrate (LOPRESSOR) 50 mg tablet Take 1 tablet (50 mg total) by mouth in the morning and 1 tablet (50 mg total) before bedtime.Active amLODIPine (NORVASC) 5 mg tablet Take 1 tablet (5 mg total) by mouth in the morning.Active Social History Tobacco UseTypesPacks/DayYears UsedDateSmoking Tobacco: Every VpnKrfjxwjzxc417 Started: 1996 Tobacco Cessation:Ready to Q uit: Not Asked; Counseling Given: Not Answered Alcohol UseStandard Drinks/WeekCommentsNot Currently0 (1 standard drink = 0.6 oz pure alcohol)ChildcareAnswerDate NaskauzvEykjcykwoYnpsuqu73/11/2019Employment AnswerDate NdhcnllfAdzxulmvvwXogajmh62/11/2019Hunger ScreeningAnswerDate RecordedWithin the past 12 months we worried whether our food would run out before we got money to buy more.Never True10/06/2024Within the past 12 months the food we bought just didn't last and we didn't have money to get more.Never True10/06/2024Sex and Gender InformationValueDate RecordedSex Assigned at Not on fileLegal HxaZaiu0404/05/2015 7:13 PM EDTGender IdentityNot on fileSexual OrientationNot on file Last Filed Vital Signs Vital SignReadingTime TakenCommentsBlood Rrtmmowh017/8910/07/2024 8:00 AM EST Wxjjd043210/07/2024 8:00 AM SVRYqkwccnaixk98.4 ??C (97.5 ??F)10/06/2024 11:39 PM ESTRespiratory Umch242710/07/2024 7:30 AM ESTOxygen Mstqeananf76%10/07/2024 8:00 AM ESTInhaled Oxygen Concentration--Rvnlez290.6 kg (268 lb)10/06/2024 11:21 PM PDFZuuvcf421.3 cm (5' 11 )10/06/2024 11:21 PM ESTBody Mass Index37.38010/06/2024 11:21 PM EST Plan of Treatment Health MaintenanceDue DateLast DoneCommentsStatin Use: Uqiyffdcpmuggq1971 Tobacco Dqumfkdvno1971Depression Swrkovsgy37/01/1983Tobacco Screening 1983Adult BMI Follow Up Plan1989DTaP,Tdap and Td Vaccines (1 - Tdap) 1990Zoster (Shingles) Vaccine (1 of 2)1990Influenza Vaccine 2025dult BMI Ueakgusoa07 Medical Devices Not on file Insurance Care Teams Team MemberRelationshipSpecialtyStart DateEnd Chema Hill MD [address] [facility], [place] [address] PCP - GeneralFamily Medicine12/10/22
[2025-08-25 11:33] LABS: Alanine Aminotransferase 45 U/L (16-63); Aspartate Amino Transferase 24 U/L (15-37); Cholesterol 247 mg/dL (<=200); HDL Cholesterol 67 mg/dL (40-60); Triglycerides 106 mg/dL (<=150); VLDL CHOLESTEROL 21.2 mg/dL
== END 2025-08-25 10:55 | disposition home or self-care (01) ==
LOC: LAB 10:56
PROVIDERS: PCP Family Medicine; Visit Provider Internal Medicine Cardiovascular Disease
DX: E78.5 Hyperlipidemia, unspecified (principal)
CPT/HCPCS: 36415; 80061; 84450; 84460